=== PATIENT | female | born 2000 | race Caucasian/White ===

== ENCOUNTER 2019-06-23 18:06 | Inpatient (IN) | payer SELFPAY ==
[2019-06-23] VITALS (12 sets, daily range): BP systolic 112–141; BP diastolic 65–79; PULSE 82–103; TEMP 36.5–36.6; BMI 32.0
[2019-06-23 19:53] LABS: Basophils Percent Auto 0.3 % (0.2-1.2); Eosinophils Percent Auto 0.2 % (0-4.4); Hematocrit 30.4 % (37.0-47.0); Hemoglobin 8.9 g/dL (12.0-15.0); Immature Granulocyte Absolute 0.11 K/mm3 (0.00-0.031); Lymphocytes Percent Auto 14.9 % (18.3-44.2); Mean Corpuscular HGB Conc 29.3 g/dl (32-36); Mean Corpuscular Volume 75.1 fl (80-100); Mean Platelet Volume 11.7 fl (7.4-10.4); Monocytes Absolute Auto 0.7 K/mm3 (0.1-0.6); Monocytes Percent Auto 6.4 % (2.6-8.5); Neutrophils Absolute Auto 8.3 K/mm3 (1.3-6.7); Neutrophils Percent Auto 77.2 % (45.5-73.1); Nucleated Red Blood Cells Perc 0.2 % (0.0-0.2); Platelet Count Result 285 k/mm3 (150-375); Red Blood Count 4.05 M/mm3 (4.2-5.4); Red Cell Distribution Width 17.3 % (11.5-14.5); White Blood Count 10.7 K/mm3 (4.5-10.0)
[2019-06-23] MEDS: DINOPROSTONE 10 MG VAG INSERT VAGINAL (19:53)
--- NOTE | 2019-06-23 20:07 | LDADM ---
This patient, Heidi Whitehead, was admitted to Labor/Delivery/Recovery 105 on 06/23/19 at 18:06. Plans for labor, pain management and were discussed with patient. Patient/family oriented to hospital policies and general routines including ID bracelet, bed and alarms, visiting hours, pain management, procedures, bathroom and other care routines, personal items, smoking policy, room service/diet and guest tray routines, security routines, and visiting hours. Patient/Family are encouraged to report perceived risks to care and to ask questions if they do not understand what they are told or what they should do. See OBIX for further documentation.
[2019-06-23 20:11] LABS: Platelet Estimate Adequate (Adequate)
[2019-06-23 20:12] LABS: Anisocytosis 3+ (NORMAL); Hypochromasia 1+ (NORMAL)
--- NOTE | 2019-06-23 20:38 | P.PNAN_ITS ---
Anes - Eval Pre Procedure Procedure: labor epidural Date/Time: 06/23/19 20:38 Surgeon: sandor Pre Op Diagnosis: Induction Patient Data Age: 19 Gender: F Height: 1.6 m Weight: 82 kg Last Vital Signs Pulse 95 06/23/19 19:31 BP 114/73 06/23/19 19:31 Allergies Allergy/AdvReac Type Severity Reaction Status Date / Time No Known Allergies Allergy Unverified 02/02/16 16:50 Laboratory Tests 06/23/19 06/23/19 06/23/19 19:47 19:47 19:47 WBC 10.7 K/mm3 H K/mm3 (4.5-10.0) RBC 4.05 M/mm3 L M/mm3 (4.2-5.4) Hgb 8.9 g/dL L g/dL (12.0-15.0) Hct 30.4 % L % (37.0-47.0) MCV 75.1 fl L fl (80-100) MCH 22.0 pg L pg (26-34) MCHC 29.3 g/dl L g/dl (32-36) RDW 17.3 % H % (11.5-14.5) Plt Count 285 k/mm3 k/mm3 (150-375) MPV 11.7 fl H fl (7.4-10.4) Immature Gran % (Auto) 1.0 % H % (0-0.5) Neut % (Auto) 77.2 % H % (45.5-73.1) Lymph % (Auto) 14.9 % L % (18.3-44.2) [place] % (Auto) 6.4 % % (2.6-8.5) Eos % (Auto) 0.2 % % (0-4.4) Baso % (Auto) 0.3 % % (0.2-1.2) Lymph # (Auto) 1.60 K/mm3 K/mm3 (0.9-3.2) [place] # (Auto) 0.7 K/mm3 H K/mm3 (0.1-0.6) Eos # (Auto) 0.0 K/mm3 K/mm3 (0-0.3) Baso # (Auto) 0.0 K/mm3 K/mm3 (0.0-0.1) Abs Immat Gran (auto) 0.11 K/mm3 H K/mm3 (0.00-0.031) Absolute Neuts (auto) 8.3 K/mm3 H K/mm3 (1.3-6.7) Absolute Nucleated RBC 0.0 K/mm3 K/mm3 (0.0-0.012) Nucleated RBC % 0.2 % % (0.0-0.2) Platelet Estimate Adequate (Adequate) Hypochromasia 1+ (NORMAL) Anisocytosis 3+ (NORMAL) RPR Pending Blood Type Pending Antibody Screen Pending Patient hx anesthesia problems: none Family hx anesthesia problems: none PMFSH Social History Social History Smoking status: Never smoker Second hand tobacco smoke exposure: No Exam Day of Procedure 06/23/19 20:38
[2019-06-23] MEDS: LACTATED RINGERS 1,000 ML 125 ML IV CONT (23:53)
[2019-06-23] MEDS: AMPICILLIN 2 GM/NS 100 ML 2 GM/100 ML BAG IVPB (23:54)
[2019-06-24] VITALS (120 sets, daily range): BP systolic 89–134; BP diastolic 52–111; PULSE 81–116; RESP 16; TEMP 36.5–37; O2SAT 97–100
[2019-06-24] MEDS: AMPICILLIN 1 GM/NS 50 ML 1 GM/50 ML BAG IVPB ×2 (04:31→08:45)
[2019-06-24] MEDS: OXYTOCIN 30 UNITS/NS 500 ML 30 UNITS/500 ML BAG IV CONT (05:34)
[2019-06-24 09:29] LABS: Rapid Plasma Reagin Non-Reactive (NonReactive)
--- NOTE | 2019-06-24 16:13 | WPDANESEPPF ---
Anes - Initial Pre Proc Eval Procedure: Labor Epidural Date/Time: 06/24/19 16:13 Surgeon: Akbar Ureña MD Pre Op Diagnosis: Induction Patient Data Age: 19 Gender: F Height: 1.6 m Weight: 82 kg Last Vital Signs Temp 36.6 C 06/24/19 14:30 Pulse 87 06/24/19 16:01 BP 120/78 06/24/19 16:01 Pulse Ox 100 06/24/19 16:09 Allergies Allergy/AdvReac Type Severity Reaction Status Date / Time No Known Allergies Allergy Unverified 02/02/16 16:50 Laboratory Tests 06/23/19 06/23/19 06/23/19 19:47 19:47 19:47 WBC 10.7 K/mm3 H K/mm3 (4.5-10.0) RBC 4.05 M/mm3 L M/mm3 (4.2-5.4) Hgb 8.9 g/dL L g/dL (12.0-15.0) Hct 30.4 % L % (37.0-47.0) MCV 75.1 fl L fl (80-100) MCH 22.0 pg L pg (26-34) MCHC 29.3 g/dl L g/dl (32-36) RDW 17.3 % H % (11.5-14.5) Plt Count 285 k/mm3 k/mm3 (150-375) MPV 11.7 fl H fl (7.4-10.4) Immature Gran % (Auto) 1.0 % H % (0-0.5) Neut % (Auto) 77.2 % H % (45.5-73.1) Lymph % (Auto) 14.9 % L % (18.3-44.2) [place] % (Auto) 6.4 % % (2.6-8.5) Eos % (Auto) 0.2 % % (0-4.4) Baso % (Auto) 0.3 % % (0.2-1.2) Lymph # (Auto) 1.60 K/mm3 K/mm3 (0.9-3.2) [place] # (Auto) 0.7 K/mm3 H K/mm3 (0.1-0.6) Eos # (Auto) 0.0 K/mm3 K/mm3 (0-0.3) Baso # (Auto) 0.0 K/mm3 K/mm3 (0.0-0.1) Abs Immat Gran (auto) 0.11 K/mm3 H K/mm3 (0.00-0.031) Absolute Neuts (auto) 8.3 K/mm3 H K/mm3 (1.3-6.7) Absolute Nucleated RBC 0.0 K/mm3 K/mm3 (0.0-0.012) Nucleated RBC % 0.2 % % (0.0-0.2) Platelet Estimate Adequate (Adequate) Hypochromasia 1+ (NORMAL) Anisocytosis 3+ (NORMAL) RPR Non-reactive (NonReactive) Blood Type B Positive Antibody Screen Negative Patient hx anesthesia problems: none Family hx anesthesia problems: none PMFSH Family History Family History Other Diabetes mellitus grandparent Grandparent Cancer Social History Social History Smoking status: Never smoker Second hand tobacco smoke exposure: No Substance use: never Gender identity (if verbalized by the patient): Female Spiritual care concerns: No Anes - Eval Final PreProcedure Day of Procedure 06/24/19 16:13 Patient weight: obese Heart: regular rate and rhythm Lungs: normal air movement Airway: Mallampati scale class II Neurological: alert and oriented ASA classification: II Anesthetic plan: proceed Anesthesia type and monitoring: regional epidural Informed Consent: The patient's anesthetic plan and its attendant risks and benefits were discussed with the patient/family/POA. Questions were solicited and answers provided to the satisfaction of the patient/family/POA.
--- NOTE | 2019-06-24 16:38 | WPDHPUPDATE1 ---
History and Physical Update Update Date/Time: 06/24/19 16:38 History and Physical has been reviewed, including an updated exam of the patient. There are NO changes in the patient's condition. Risks, benefits, and alternatives have been discussed and questions answered. Patient agrees to proceed with procedure.
--- NOTE | 2019-06-24 16:38 | WPDOBADMIT ---
Obstetrics - Admit Note Admission Note: record reviewed. No pertinent additions to the history and/or any subsequent changes in the physical findings that are not consistent with the expected course of the were found. Additions to the history and/or subsequent changes in the physical findings follow. None.
--- NOTE | 2019-06-24 16:38 | PM.OBPRVD ---
OB - Delivery Note Procedure Delivery date: 06/24/19 Route of delivery: Laceration description: Perineal - 2nd Degree Delivery repair: chromic Specimen: No Estimated blood loss (mL): 300 Anesthesia type: Epidural Disposition: floor Narrative: Patient prepped and draped in usual manner for this procedure. Maternal expulsive efforts readily delivered vertex over intact perineum. Rest of baby was delivered difficulty cord was clamped and cut and placenta delivered spontaneously. Cervix vagina vulva were inspected with second-degree perineal laceration noted. This was approximated using 2 0 chromic to approximated in a running interlocking manner the vaginal tissue deep tissue in a subcuticular layer with good approximation and hemostasis noted. Uterus was well contracted minimal bleeding. This point seizure was considered terminated with immediate postop condition of mother and baby both excellent. Baby Weeks of gestation at delivery: 39 Infant gender: Female Weight (pounds): 7 Weight (ounces): 11 score one minute: 8 score five minutes: 9
[2019-06-24] MEDS: BENZOCAINE 20% AER SPR (*SP) 56 GM CAN 1 SPRAY TOPICAL (17:10)
[2019-06-24] MEDS: OXYTOCIN 30 UNITS/NS 500 ML 30 UNITS/500 ML BAG 125 UNITS IV CONT (17:10)
[2019-06-24] MEDS: WITCH HAZEL 40 PADS 1 PAD TOPICAL (17:10)
[2019-06-24] MEDS: IBUPROFEN 600 MG TABLET PO (18:20)
[2019-06-25 05:34] LABS: Hemoglobin 8.1 g/dL (12.0-15.0)
--- NOTE | 2019-06-25 07:30 | PC.NURSE ---
PT introductions made and plan of care discussed per post , pain management, bottle feeding, daily care activities. PT verbalized understanding of such care.
[2019-06-25 08:20] VITALS: BP 116/69; PULSE 89; RESP 16; TEMP 37.7; O2SAT 97
--- NOTE | 2019-06-25 10:47 | PM.OBDSVD ---
OB - DS: Summary OB Procedures : None OB Procedures Intrapartum: Spontaneous Vag Delivery OB Procedures: : None Time Spent with Patient Time attestation: Total time spent providing and/or coordinating discharge services: DS: Data Data Completed and Pending Labs on day of discharge: Labs from last 24 hours 06/25/19 04:51 Hgb 8.1 L Hct 27.0 L Discharge Plan Discharge Discharging Clinician: Akbar Ureña Patient Disposition: Home, Self-Care Activity: as tolerated Diet: as tolerated Patient Instructions: Antibiotic Form Stand Alone Forms: General Discharge Information Follow-up/Referrals: Akbar Ureña MD [Physician] - 3 Weeks Discharge Medications: New hydrocodone-acetaminophen 5-325 mg Tablet 1 tab PO Q3H PRN (Reason: Moderate Pain (4-6)) Qty: 12 RF: 0 ibuprofen 600 mg Tablet 600 mg PO Q6H PRN (Reason: Cramping) Qty: 30 RF: 0 Date of admission: 06/23/19 18:06 Primary Care Provider: Yuan Sahu Admitting Provider: Akbar Ureña Attending physician on admission: Akbar Ureña
[2019-06-25] MEDS: IBUPROFEN 600 MG TABLET PO ×2 (10:58→17:59)
[2019-06-25] MEDS: POLYSACCHARIDE IRON COMPLEX 150 MG CAPSULE PO ×2 (10:59→17:59)
[2019-06-25 11:00] VITALS: PULSE 89; RESP 16; O2SAT 97
[2019-06-25] MEDS: DOCUSATE SODIUM 100 MG CAPSULE PO ×2 (11:00→17:59)
[2019-06-25] MEDS: TETANUS,DIPHTHERIA,AC PERTUSSIS ADULT (0.5 ML) BOOSTRIX IM (11:00)
--- NOTE | 2019-06-25 17:46 | WPDANLDPN2 ---
Anes-Prog Note L&D Date/Time: 06/25/19 17:46 Comfortable throughout: labor and delivery Neuraxial method: epidural Epidural/Spinal procedure site: clean & non-tender Neuro status: Neuro function grossly intact. Cardiovascular status: normal Respiratory status: normal Airway patency: baseline Mental status: baseline Post-Op hydration status: normal Vital Signs: Last Vital Signs Temp 37.7 C H 06/25/19 08:20 Pulse 89 06/25/19 08:20 Resp 16 06/25/19 08:20 BP 116/69 06/25/19 08:20 Pulse Ox 97 06/25/19 08:20 Post-procedural complaints: none Patient feedback: Patient satisfied with anesthetic care.
[2019-06-25 19:20] VITALS: BP 106/59; PULSE 90; RESP 16; TEMP 37.1
--- NOTE | 2019-06-26 07:15 | PC.NURSE ---
Pt introductions made and plan of care discussed per post , pain management, bottle feeding, daily care activities and pending discharge to home. PT verbalized understanding of such care.
[2019-06-26 08:00] VITALS: BP 119/78; PULSE 87; RESP 16; TEMP 36.7; O2SAT 100
[2019-06-26] MEDS: DOCUSATE SODIUM 100 MG CAPSULE PO (09:07)
[2019-06-26] MEDS: POLYSACCHARIDE IRON COMPLEX 150 MG CAPSULE PO (09:07)
[2019-06-26] MEDS: IBUPROFEN 600 MG TABLET PO (09:08)
[2019-06-26 09:10] VITALS: PULSE 87; RESP 16; O2SAT 100
--- NOTE | 2019-06-26 12:00 | PC.NURSE ---
Patient viewed the discharge video Mother & Baby Care, The First Two Weeks . Patient was given the opportunity and encouraged to ask questions. Patient verbalized understanding of information shared and has been given the mother/baby guide for home reference.
--- NOTE | 2019-06-26 12:30 | PC.NURSE ---
PT received discharge instructions per protocol and verbalized understanding of such care.
--- NOTE | 2019-06-26 12:45 | PC.NURSE ---
PT discharged to home ambulatory accompanied by fob and infant to waiting car. Follow up appts confirmed
[2019-06-27 10:23] VITALS: BP 131/84; PULSE 83; RESP 20; TEMP 36.9; O2SAT 99
--- NOTE | 2019-07-22 12:54 | P.DS_ITS ---
DS: Admitting Diagnosis Admitting Diagnosis Admitting Diagnosis: Encounter for supervision of normal , unspecified, third trimester OB - DS: Summary OB Procedures : None OB Procedures Intrapartum: Spontaneous Vag Delivery OB Procedures: : None Time Spent with Patient Time attestation: Total time spent providing and/or coordinating discharge services: Discharge Plan Discharge Discharging Clinician: Akbar Ureña Patient Disposition: Home, Self-Care Activity: as tolerated Diet: as tolerated Discharge Instructions: Education: Mom and Baby Guide Given to: Mother Follow-Up: Call your delivering provider's office for an appointment to be seen in: 3 weeks Mom and baby should come to the [facility] for the follow-up appointment. Appointment Date/Time: June 27, 2019 at 10:00 am What to expect at your follow-up visit: Blood Pressure Check Call [phone] if you are unable to keep your appointment time. BREAST CARE: 1. Wear a snug supportive bra. 2. For engorgement discomfort: Bottle Feeding: A. May apply ice packs PERINEAL CARE: 1. Until bleeding stops, use your keyshawn bottle after urinating 2. Change your pad frequently throughout the day 3. You may take sitz baths several times a day (fill your bathtub with warm water and soak for 20 minutes.) Do NOT bathe in the water 4. No tub baths until seen by your physician - You may shower ACTIVITY: 1. Rest as much as possible. 2. Do not exercise or lift anything heavier than your baby (such as laundry or other children.) 3. Avoid stairs or driving as much as possible. 4. Do not put anything into the vagina. No douching, tampons, or sexual ac tivity until seen by physician. NOTIFY PHYSICIAN IF YOU HAVE ANY QUESTIONS OR IF ANY OF THE FOLLOWING SYMPTOMS OCCUR: 1. If your perineum becomes red, swollen, or more painful than what you have experienced in the hospital. 2. If your vaginal bleeding becomes foul smelling. 3. If your vaginal bleeding becomes more heavy than a period or if your bleeding changes from pink to bright red. However, you may pass an occasional walnut- sized clot once or twice for the first week . 4. If you experience a sharp, shooting pain in you calves. 5. If you discover a hard, reddened area on your breast or if you experience flu-like symptoms. 6. Call for temp 100.4 or greater DIET: 1. Eat regular, well-balanced meals. 2. Drink plenty of fluids daily. If , drink to thirst. Patient Instructions: Antibiotic Form Stand Alone Forms: General Discharge Information Follow-up/Referrals: Akbar Ureña MD [Physician] - 3 Weeks Discharge Medications: New hydrocodone-acetaminophen 5-325 mg Tablet 1 tab PO Q3H PRN (Reason: Moderate Pain (4-6)) Qty: 12 RF: 0 ibuprofen 600 mg Tablet 600 mg PO Q6H PRN (Reason: Cramping) Qty: 30 RF: 0 Date of admission: 06/23/19 18:06 Primary Care Provider: Yuan Sahu Admitting Provider: Akbar Ureña Discharge Date/Time: 06/26/19 12:45 Attending physician on admission: Akbar Ureña
== END 2019-06-26 12:45 | disposition home or self-care (01) | DRG 560 ==
LOC: ANHLDR 18:29 → ANHOB2 06-24 18:49
PROVIDERS: Admitting Provider Obstetrics & Gynecology; PCP Pediatrics; Visit Provider Obstetrics & Gynecology
DX: O99.824 Streptococcus B carrier state complicating childbirth (principal); Z37.0 Single live birth; Z3A.39 39 weeks gestation of pregnancy; O99.214 Obesity complicating childbirth; E66.9 Obesity, unspecified; O70.1 Second degree perineal laceration during delivery
CPT/HCPCS: 36415; 85014; 85018; 85025; 86592; 86850; 86900; 86901; 90715; A9270; J0290; J2590; J2795; J3010; J7120

== ENCOUNTER 2020-11-17 14:17 | Emergency (ER) | payer BC, SELFPAY ==
[2020-11-17 14:22] VITALS: BP 120/75; PULSE 74; RESP 14; O2SAT 99
--- NOTE | 2020-11-17 15:23 | ED.UPPEXIN ---
HPI - Extremity Injury (Upper) General Chief Complaint: Extremity Injury, Upper Stated Complaint: right hand swelling Time Seen by Provider: 11/17/20 14:21 History of Present Illness HPI narrative: Patient is a 20-year-old female who presents ER with right hand tingling. Located in fingers 2 through 4. Also feels like it swollen at times. Maintains full range of motion and normal strength. No known trauma. 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 She reports she had returned to work last week and developed the symptoms about 5 days ago. No chest pain or chest pressure. No change in vision or hearing. No other localizing numbness. No localizing weakness. Has not had similar symptoms. Tried ibuprofen 800 mg without relief of symptoms. Patient takes no medications. Related Data Allergies Allergy/AdvReac Type Severity Reaction Status Date / Time No Known Allergies Allergy Unverified 02/02/16 16:50 Review of Systems Review of Systems: All systems reviewed & are unremarkable except as noted in HPI and below Constitutional: Constitutional: Denies chills and Denies fever(s) Musculoskeletal: Musculoskeletal: Denies back pain, Denies arthralgias, Denies joint swelling and Denies muscle cramps Neurologic: Denies headache(s), Denies focal weakness and Reports numbness PMFSH Past Medical History Medical History (Updated 11/17/20 @ 15:29 by Curt Johnson MD) Healthy female adult Surgical History Surgical History (Updated 11/17/20 @ 15:25 by Curt Johnson MD) No history of previous surgery Family History Family History Other Diabetes mellitus grandparent Grandparent Cancer Social History Social History Smoking status: Never smoker Second hand tobacco smoke exposure: No Substance use: never Gender identity (if verbalized by the patient): Female Spiritual care concerns: No Exam Narrative: GENERAL: Well-appearing, well-nourished, and in no acute distress. HEAD: Normocephalic, atraumatic. CHEST: Clear to auscultation. No respiratory distress. HEART: Regular rate and rhythm. Normal peripheral pulses. EXTREMITIES: Normal range of motion. Normal strength in the right hand. No edema. SKIN: Warm, dry, no rash. NEURO: Patient retains sharp touch sensation throughout the right hand with exception over the tip of the third digit. Alert and oriented x3. PSYCH: Normal mood and affect. Course Course Emergency Course: Negative Phalen/Tinel sign. Concern for mild median nerve compression. Will place in wrist splint and start on anti-inflammatories. Recommend follow-up with PCP. Patient verbalized understanding. No traumatic injury or deformity reproducible tenderness so x-rays not obtained. Vital Signs Vital signs: Vital Signs Pulse Rate 74 11/17/20 14:22 Respiratory Rate 14 11/17/20 14:22 Blood Pressure 120/75 11/17/20 14:22 Pulse Oximetry 99 11/17/20 14:22 Pulse Rate 74 11/17/20 14:22 Respiratory Rate 14 11/17/20 14:22 Blood Pressure 120/75 11/17/20 14:22 Pulse Oximetry 99 11/17/20 14:22 Discharge Plan Discharge Clinical Impression: Hand paresthesia Patient Disposition: Home, Self-Care Condition: Stable Instructions: Paresthesia (ED) Additional Instructions: You may have a component of carpal tunnel syndrome. Purchase an [id number] wrist splint from [employer] and wear it overnight and is much as possible during the day. Take the anti-inflammatory medication that was prescribed. Follow-up with your primary care physician for further treatment evaluation. From the ER if you have focal weakness in your arm or hand, you have chest pain or shortness of breath, or you have additional concerns. Prescriptions: New methylprednisolone [Medrol (Reilly)] 4 mg tablets,dose pack See Rx Instructions .ROUTE
== END 2020-11-17 15:54 | disposition home or self-care (01) ==
PROVIDERS: Emergency Provider Emergency Medicine; PCP Obstetrics & Gynecology
DX: R20.2 Paresthesia of skin (principal)
CPT/HCPCS: 99283

== ENCOUNTER 2021-12-02 08:49 | Outpatient (CLI) | payer BC, SELFPAY ==
[2021-12-02 09:56] LABS: Basophils Percent Auto 0.4 % (0.2-1.2); Eosinophils Percent Auto 0.7 % (0-4.4); Hematocrit 39.1 % (37.0-47.0); Immature Granulocyte Absolute 0.02 K/mm3 (0.00-0.031); Immature Granulocyte Percent A 0.4 % (0-0.5); Lymphocytes Absolute Auto 1.55 K/mm3 (0.9-3.2); Lymphocytes Percent Auto 27.4 % (18.3-44.2); Mean Corpuscular HGB Conc 33.2 g/dl (32-36); Mean Corpuscular Hemoglobin 28.7 pg (26-34); Mean Corpuscular Volume 86.3 fl (80-100); Mean Platelet Volume 11.8 fl (7.4-10.4); Monocytes Absolute Auto 0.3 K/mm3 (0.1-0.6); Monocytes Percent Auto 5.1 % (2.6-8.5); Neutrophils Absolute Auto 3.7 K/mm3 (1.3-6.7); Platelet Count Result 209 k/mm3 (150-375); Red Blood Count 4.53 M/mm3 (4.2-5.4); Red Cell Distribution Width 12.9 % (11.5-14.5); White Blood Count 5.7 K/mm3 (4.5-10.0)
[2021-12-02 10:53] LABS: HIV 1/2 Ab P24 Ag Result Negative (Negative)
[2021-12-04 06:27] LABS: Rapid Plasma Reagin Non-Reactive (NonReactive)
[2021-12-04 08:28] LABS: Hepatitis B Surface Antigen Negative (Negative)
== END 2021-12-02 08:50 | disposition home or self-care (01) ==
LOC: ANHLAB 08:50
PROVIDERS: PCP Obstetrics & Gynecology; Visit Provider Obstetrics & Gynecology
DX: N94.89 Other specified conditions associated with female genital organs and menstrual cycle (principal)
CPT/HCPCS: 36415; 85025; 86592; 86644; 86703; 86747; 86787; 86850; 86900; 86901; 87086; 87088; 87340; G0432

== ENCOUNTER 2022-01-18 14:41 | Outpatient (CLI) | payer BC, SELFPAY | END 2022-01-18 14:42 | disposition home or self-care (01) | LOC: ANHLAB 14:42 | PROVIDERS: PCP Obstetrics & Gynecology; Visit Provider Obstetrics & Gynecology | DX: R30.0 Dysuria (principal) | CPT/HCPCS: 87086; 87088 ==

== ENCOUNTER 2022-04-14 07:51 | Outpatient (CLI) | payer BC, SELFPAY ==
[2022-04-14 08:32] LABS: Hemoglobin 10.7 g/dL (12.0-15.0); Mean Corpuscular HGB Conc 32.4 g/dl (32-36); Mean Corpuscular Hemoglobin 27.4 pg (26-34); Mean Corpuscular Volume 84.4 fl (80-100); Mean Platelet Volume 10.7 fl (7.4-10.4); Platelet Count Result 205 k/mm3 (150-375); Red Blood Count 3.91 M/mm3 (4.2-5.4); Red Cell Distribution Width 12.9 % (11.5-14.5); White Blood Count 8.6 K/mm3 (4.5-10.0)
[2022-04-14 09:16] LABS: HIV 1/2 Ab P24 Ag Result Negative (Negative)
[2022-04-14 09:46] LABS: Glucose 1 Hour PP 50gm Dose 131 mg/dL
[2022-04-14 10:43] LABS: Rubella IgG Antibody 21.5 IU/ML
== END 2022-04-14 07:52 | disposition home or self-care (01) ==
LOC: ANHLAB 07:54
PROVIDERS: PCP Obstetrics & Gynecology; Visit Provider Obstetrics & Gynecology
DX: Z34.90 Encounter for supervision of normal pregnancy, unspecified, unspecified trimester (principal); Z3A.00 Weeks of gestation of pregnancy not specified
CPT/HCPCS: 36415; 82947; 85027; 86703; 86762; G0432

== ENCOUNTER 2022-05-22 11:18 | Emergency (ER) | payer BC, SELFPAY ==
[2022-05-22 11:21] VITALS: BP 127/70; PULSE 99; RESP 20; TEMP 36.8; O2SAT 100
--- NOTE | 2022-05-22 12:12 | ED.EXTPRO ---
HPI - Extremity Problem General Chief complaint: Extremity Problem,Nontraumatic Stated complaint: R shoulder pain Time Seen by Provider: 05/22/22 12:05 History of Present Illness HPI Narrative: Pt presents with right shoulder/back pain without known injury for several days. Pt is 35 weeks and has been taking tylenol without relief. Pt works at [employer] and dos some repetitive motions but has not noticed anything in particular setting this off. Related Data Home Medications Medication Instructions Recorded Confirmed acetaminophen 500 mg tablet 500 mg PO Q6H PRN 11/20/21 05/09/22 (Tylenol Extra Strength) vitamins-iron fumarate 65 1 tablet PO DAILY 12/19/21 05/09/22 mg iron-folic acid 1 mg tablet Allergies Allergy/AdvReac Type Severity Reaction Status Date / Time No Known Allergies Allergy Verified 05/22/22 11:26 Review of Systems Review of Systems: All systems reviewed & are unremarkable except as noted in HPI and below PMFSH Past Medical History Medical History Healthy female adult Suppression of menstruation Surgical History Surgical History No history of previous surgery Family History Family History Other Diabetes mellitus grandparent Grandparent Cancer Social History Social History Smoking status: Never smoker Second hand tobacco smoke exposure: No Alcohol intake: never Substance use: never Substance use type: does not use Living arrangements: other Additional living arrangements comments: single Occupation/Education: occupation Additional occupation/education comments: [employer] Gender identity (if verbalized by the patient): Female Sexual Orientation (if Verbalized by the Patient): Straight or Heterosexual Spiritual care concerns: No Exam Const: General: healthy appearing and no acute distress Nutritional Appearance: well nourished Orientation/consciousness: patient oriented x3 Limitations: no limitations Neck: Neck: normal visual inspection Chest: Chest palpation & inspection: normal inspection of the chest Resp: Effort & Inspection: normal respiratory effort Auscultation: clear to auscultation bilaterally Cardio: Rate: regular rate Rhythm: regular rhythm GI: GI Palp: Yes Soft to palpation Auscultation: normal bowel sounds Skin: General skin exam: normal color Wounds: no wounds Neuro: General: patient oriented x3 Cranial nerves: Yes Nystagmus not present Speech: normal speech Extrem: Other: spasm and tenderness in right trapezius and rhomboid otherwise normal Psych: Mental Status: mental status grossly normal Affect: normal affect Attitude: cooperative Course Course Emergency Course: Pt has no injury so discussed with pt and does not want x rays. PT understands that if narcotic is prescribed her baby would likely be exposed and she is aware of potential risks and would like some prescribed for pain. will do sling for comfort. Vital Signs Vital signs: Vital Signs Temperature 98.3 F 05/22/22 11:21 Pulse Rate 99 05/22/22 11:21 Respiratory Rate 20 05/22/22 11:21 Blood Pressure 127/70 05/22/22 11:21 Pulse Oximetry 100 05/22/22 11:21 Oxygen Delivery Room Air 05/22/22 11:21 Temperature 98.3 F 05/22/22 11:21 Pulse Rate 99 05/22/22 11:21 Respiratory Rate 16 05/22/22 12:28 Blood Pressure 127/70 05/22/22 11:21 Pulse Oximetry 100 05/22/22 11:21 Oxygen Delivery Room Air 05/22/22 11:21 Discharge Plan Discharge Clinical Impression: Muscle spasm of shoulder region Patient Disposition: Home, Self-Care Condition: Stable Instructions: Antibiotic Form, Muscle Spasm (ED) Additional Instructions: heat to area Prescriptions: New hydrocodon
[2022-05-22 12:28] VITALS: RESP 16
== END 2022-05-22 12:29 | disposition home or self-care (01) ==
PROVIDERS: Emergency Provider Emergency Medicine; PCP Obstetrics & Gynecology
DX: O99.891 Other specified diseases and conditions complicating pregnancy (principal); M62.838 Other muscle spasm; M25.511 Pain in right shoulder; Z3A.35 35 weeks gestation of pregnancy
CPT/HCPCS: 99283; A4565

== ENCOUNTER 2022-06-14 16:58 | Inpatient (IN) | payer BC, MEDICAID, SELFPAY ==
[2022-06-14] VITALS (110 sets, daily range): BP systolic 79–131; BP diastolic 28–106; PULSE 94–129; TEMP 36.6–36.9; O2SAT 94–100; BMI 31.2
--- NOTE | 2022-06-14 17:42 | LDADM ---
This patient, Heidi Whitehead, was admitted to Labor/Delivery/Recovery 108 on 06/14/22 at 16:58. Plans for labor, pain management and were discussed with patient. Patient/family oriented to hospital policies and general routines including ID bracelet, bed and alarms, visiting hours, pain management, procedures, bathroom and other care routines, personal items, smoking policy, room service/diet and guest tray routines, security routines, and visiting hours. Patient/Family are encouraged to report perceived risks to care and to ask questions if they do not understand what they are told or what they should do. See OBIX for further documentation.
[2022-06-14 17:46] LABS: Basophils Percent Auto 0.3 % (0.2-1.2); Eosinophils Absolute Auto 0.1 K/mm3 (0-0.3); Eosinophils Percent Auto 0.6 % (0-4.4); Hemoglobin 9.5 g/dL (12.0-15.0); Immature Granulocyte Absolute 0.29 K/mm3 (0.00-0.031); Immature Granulocyte Percent A 2.3 % (0-0.5); Lymphocytes Absolute Auto 1.72 K/mm3 (0.9-3.2); Lymphocytes Percent Auto 13.7 % (18.3-44.2); Mean Corpuscular HGB Conc 30.6 g/dl (32-36); Mean Corpuscular Hemoglobin 23.1 pg (26-34); Mean Corpuscular Volume 75.2 fl (80-100); Mean Platelet Volume 10.4 fl (7.4-10.4); Monocytes Absolute Auto 0.8 K/mm3 (0.1-0.6); Monocytes Percent Auto 6.4 % (2.6-8.5); Neutrophils Absolute Auto 9.6 K/mm3 (1.3-6.7); Neutrophils Percent Auto 76.7 % (45.5-73.1); Nucleated Red Blood Cells Perc 0.2 % (0.0-0.2); Platelet Count Result 268 k/mm3 (150-375); Red Blood Count 4.12 M/mm3 (4.2-5.4); Red Cell Distribution Width 15.9 % (11.5-14.5); White Blood Count 12.6 K/mm3 (4.5-10.0)
[2022-06-14] MEDS: DINOPROSTONE 10 MG VAG INSERT VAGINAL (17:50)
[2022-06-14] MEDS: LACTATED RINGERS 1,000 ML 125 ML IV CONT ×3 (19:30→21:53)
--- NOTE | 2022-06-14 20:32 | WPDANESEPP ---
Anes - Eval Pre Procedure Procedure: Labor epidural Date/Time: 06/14/22 20:32 Surgeon: MARY Preop Diagnosis: Abdominal pain with contractions Pre Op Diagnosis: IOL Patient Data Age: 22 Gender: F Height: Weight: Last Vital Signs Temp 98 F 06/14/22 19:30 Pulse 106 H 06/14/22 20:00 BP 118/69 06/14/22 20:00 Pulse Ox 99 06/14/22 20:28 O2 Del Method Room Air 06/14/22 19:01 Allergies Allergy/AdvReac Type Severity Reaction Status Date / Time No Known Allergies Allergy Verified 06/12/22 09:49 Home Medications Medication Instructions Recorded Confirmed Type acetaminophen 500 mg tablet 500 mg PO Q6H PRN 11/20/21 06/12/22 History (Tylenol Extra Strength) vitamins-iron fumarate 65 1 tablet PO DAILY 12/19/21 06/12/22 History mg iron-folic acid 1 mg tablet Laboratory Tests 06/14/22 17:35 WBC 12.6 H K/mm3 (4.5-10.0) RBC 4.12 L M/mm3 (4.2-5.4) Hgb 9.5 L g/dL (12.0-15.0) Hct 31.0 L % (37.0-47.0) MCV 75.2 L fl (80-100) MCH 23.1 L pg (26-34) MCHC 30.6 L g/dl (32-36) RDW 15.9 H % (11.5-14.5) Plt Count 268 k/mm3 (150-375) MPV 10.4 fl (7.4-10.4) Immature Gran % (Auto) 2.3 H % (0-0.5) Neut % (Auto) 76.7 H % (45.5-73.1) Lymph % (Auto) 13.7 L % (18.3-44.2) Harney % (Auto) 6.4 % (2.6-8.5) Eos % (Auto) 0.6 % (0-4.4) Baso % (Auto) 0.3 % (0.2-1.2) Lymph # (Auto) 1.72 K/mm3 (0.9-3.2) Harney # (Auto) 0.8 H K/mm3 (0.1-0.6) Eos # (Auto) 0.1 K/mm3 (0-0.3) Baso # (Auto) 0.0 K/mm3 (0.0-0.1) Abs Immat Gran (auto) 0.29 H K/mm3 (0.00-0.031) Absolute Neuts (auto) 9.6 H K/mm3 (1.3-6.7) Absolute Nucleated RBC 0.0 K/mm3 (0.0-0.012) Nucleated RBC % 0.2 % (0.0-0.2) RPR Pending Blood Type B Positive Antibody Screen Negative : gestational age HCG: positive Patient hx anesthesia problems: none Family hx anesthesia problems: none Results Review: All pre-operative results and documents have been reviewed as part of the pre-operative evaluation. [facility] Past Medical History Medical History Anxiety and depression Healthy female adult Obesity and not yet delivered Suppression of menstruation Surgical History Surgical History No history of previous surgery Family History Family History Other No problems noted. Grandparent Cancer Diabetes mellitus Sibling Autism Social History Social History Smoking status: Never smoker Second hand tobacco smoke exposure: Yes Alcohol intake: never Substance use: never Substance use type: does not use Lack of Transportation: No Lack of Food: Sometimes True Current Housing: I Have Housing Concerned About Future Housing: No Difficulty Paying Gas/Electric Bills: No Difficulty Paying for Meds: No Currently Unemployed: No Education: High School Diploma/GED Difficulty w/ Childcare or Family Care: No Living arrangements: other Additional living arrangements comments: single Occupation/Education: occupation Additional occupation/education comments: [employer] Gender identity (if verbalized by the patient): Female Sexual Orientation (if Verbalized by the Patient): Straight or Heterosexual Spiritual care concerns: No Exam Day of Procedure 06/14/22 20:32 Patient weight: overweight
[2022-06-14] MEDS: PHENYLEPHRINE 1,000 MCG/10 ML SYRINGE 100 MCG IV PUSH ×2 (21:07→21:13)
[2022-06-14] MEDS: ePHEDrine sulfate INJ 50 MG/ML AMPUL IV PUSH ×2 (21:20→21:26)
[2022-06-15] VITALS (21 sets, daily range): BP systolic 72–134; BP diastolic 46–74; PULSE 73–130; RESP 16–20; TEMP 36.3–37.6; O2SAT 95–100
[2022-06-15] MEDS: OXYTOCIN 30 UNITS/NS 500 ML 30 UNITS/500 ML BAG 999 UNITS IV CONT (00:39)
--- NOTE | 2022-06-15 00:45 | WPDHPUPDATE1 ---
History and Physical Update Update Date/Time: 06/15/22 00:45 History and Physical has been reviewed, including an updated exam of the patient. There are NO changes in the patient's condition. Risks, benefits, and alternatives have been discussed and questions answered. Patient agrees to proceed with procedure.
--- NOTE | 2022-06-15 00:45 | PM.OBPRVD ---
OB - Delivery Note Procedure Induction method: Per Cervidil Protocol Delivery monitor: External FHT and External Uterine Route of delivery: Episiotomy description: None Laceration Description: None Specimen: No Quantitative Blood Loss (ml): 300 Anesthesia type: Epidural Disposition: Floor Complications: None Narrative: patient prepped in usual manner for this procedure. Maternal expulsive efforts readily delivered vertex and rest baby without difficulty. Cord was clamped cut passed off the operative field. Placenta delivered spontaneously as well. Uterus well contracted and no significant bleeding. Cervix vagina and vulva were inspected with no lacerations or tears. [place] Baby Date of : 06/15/22 Weeks of gestation at delivery: 39 gender: Female Weight (pounds): 7 Weight (ounces): 10 presentation: vertex Placenta delivery description: Spontaneous Cord Vessel Description: 3 Vessels score one minute: 9 score five minutes: 9 AMG Delivery Billing Delivery Delivery: Delivery Charge
[2022-06-15] MEDS: OXYTOCIN 30 UNITS/NS 500 ML 30 UNITS/500 ML BAG 125 UNITS IV CONT (01:21)
--- NOTE | 2022-06-15 03:40 | OBPPTRN ---
Patient transferred to post room #279 via wheelchair. Support person present. Oriented to unit, room, information board, rooming in, admission packet and security measures. Patient verbalizes understanding.
[2022-06-15] MEDS: IBUPROFEN 600 MG TABLET PO ×2 (05:22→13:00)
[2022-06-15 11:25] LABS: Rapid Plasma Reagin Non-Reactive (NonReactive)
[2022-06-15] MEDS: DOCUSATE SODIUM 100 MG CAPSULE PO (13:00)
[2022-06-15] MEDS: MULTIVIT/MIN/PREN/FOL AC/IRON TABLET 1 TAB PO (13:00)
[2022-06-15] MEDS: ACETAMINOPHEN 325 MG TABLET 650 MG PO (16:30)
[2022-06-16] MEDS: IBUPROFEN 600 MG TABLET PO (03:47)
[2022-06-16] MEDS: ACETAMINOPHEN 325 MG TABLET 650 MG PO (03:49)
[2022-06-16 05:15] LABS: Hematocrit 31.3 % (37.0-47.0); Hemoglobin 9.1 g/dL (12.0-15.0)
--- NOTE | 2022-06-16 07:24 | P.DS_ITS ---
DS: Admitting Diagnosis Discharge Date 06/16/2022 Admitting Diagnosis DS: Discharge Diagnosis Discharge Diagnosis (1) , delivered: Code(s): O80 - Encounter for full-term uncomplicated delivery Status: Acute OB - DS: Summary OB Procedures : None OB Procedures Intrapartum: Spontaneous Vag Delivery OB Procedures: : None Time Spent with Patient Time attestation: Total time spent providing and/or coordinating discharge services: DS: Data Data Completed and Pending Labs on day of discharge: Labs from last 24 hours 06/16/22 06/14/22 03:53 17:35 Hgb 9.1 L Hct 31.3 L RPR Non-reactive Discharge Plan Discharge Discharging Clinician: Akbar Ureña Patient Disposition: Home, Self-Care Activity: as tolerated Diet: as tolerated Patient Instructions: Antibiotic Form Stand Alone Forms: General Discharge Information Follow-up/Referrals: Akbar Ureña MD [Physician] - 3 Weeks Discharge Medications: New ibuprofen 600 mg Tablet 600 mg PO Q6H PRN (Reason: Cramping) Qty: 30 0RF Continued vit-iron fum-folic ac 65 mg iron- 1 mg tablet 1 tablet PO DAILY acetaminophen [Tylenol Extra Strength] 500 mg tablet 500 mg PO Q6H PRN Date of admission: 06/14/22 16:58 Primary Care Provider: PHYSICIAN,SCIENTIFIC SOFTWARE DEVELOPER Admitting Provider: Akbar Ureña Attending physician on admission: Akbar Ureña Condition: Stable
[2022-06-16 07:38] VITALS: BP 110/66; PULSE 81; RESP 14; TEMP 36.8; O2SAT 100
[2022-06-16] MEDS: MULTIVIT/MIN/PREN/FOL AC/IRON TABLET 1 TAB PO (10:08)
[2022-06-16] MEDS: POLYSACCHARIDE IRON COMPLEX 150 MG CAPSULE PO (10:08)
[2022-06-16] MEDS: DOCUSATE SODIUM 100 MG CAPSULE PO (10:08)
--- NOTE | 2022-06-16 11:09 | WPDANLDPN2 ---
Anes-Prog Note L&D Date/Time: 06/16/22 11:09 Comfortable throughout: labor and delivery Neuraxial method: epidural Epidural/Spinal procedure site: clean & non-tender Neuro status: Neuro function grossly intact. Cardiovascular status: normal Respiratory status: normal Airway patency: baseline Mental status: baseline Post-Op hydration status: normal Vital Signs: Last Vital Signs Temp 36.8 C 06/16/22 07:38 Pulse 81 06/16/22 07:38 Resp 14 06/16/22 07:38 BP 110/66 06/16/22 07:38 Pulse Ox 100 06/16/22 07:38 O2 Del Method Room Air 06/15/22 16:30 Pain score (VAS): 3 I/O: Intake & Output 06/15/22 06/16/22 06/16/22 23:59 07:59 15:59 Intake Total 750 Balance 750 Post-procedural complaints: none Patient feedback: Patient satisfied with anesthetic care.
[2022-06-18 10:09] VITALS: BP 112/70; PULSE 89; RESP 18; TEMP 36.9; O2SAT 98
== END 2022-06-16 12:40 | disposition home or self-care (01) | DRG 807 ==
LOC: ANHLDR 17:09 → ANHOB2 06-15 03:52
PROVIDERS: Admitting Provider Obstetrics & Gynecology; Visit Provider Obstetrics & Gynecology
DX: O80 Encounter for full-term uncomplicated delivery (principal); Z37.0 Single live birth; Z3A.39 39 weeks gestation of pregnancy
CPT/HCPCS: 36415; 85014; 85018; 85025; 86592; 86850; 86900; 86901; A9270; J2370; J2590; J2795; J7120

== ENCOUNTER 2023-10-07 09:44 | Outpatient (CLI) | payer BC, SELFPAY ==
[2023-10-07 10:26] LABS: Basophils Percent Auto 0.4 % (0.2-1.2); Eosinophils Percent Auto 0.4 % (0-4.4); Hematocrit 37.3 % (37.0-47.0); Hemoglobin 12.8 g/dL (12.0-15.0); Immature Granulocyte Absolute 0.02 K/mm3 (0.00-0.031); Immature Granulocyte Percent A 0.3 % (0-0.5); Lymphocytes Absolute Auto 1.35 K/mm3 (0.9-3.2); Lymphocytes Percent Auto 19.8 % (18.3-44.2); Mean Corpuscular HGB Conc 34.3 g/dl (32-36); Mean Corpuscular Hemoglobin 30.4 pg (26-34); Mean Corpuscular Volume 88.6 fl (80-100); Mean Platelet Volume 11.5 fl (7.4-10.4); Monocytes Absolute Auto 0.4 K/mm3 (0.1-0.6); Monocytes Percent Auto 5.4 % (2.6-8.5); Neutrophils Percent Auto 73.7 % (45.5-73.1); Platelet Count Result 194 k/mm3 (150-375); Red Blood Count 4.21 M/mm3 (4.2-5.4); Red Cell Distribution Width 12.7 % (11.5-14.5); White Blood Count 6.8 K/mm3 (4.5-10.0)
[2023-10-07 11:52] LABS: Hepatitis B Surface Antigen Negative (Negative); Rubella IgG Antibody 23.8 IU/ML
[2023-10-07 12:38] LABS: HIV 1/2 Ab P24 Ag Result Negative (Negative)
[2023-10-07 13:24] LABS: Rapid Plasma Reagin Non-Reactive (NonReactive)
== END 2023-10-07 09:45 | disposition home or self-care (01) ==
LOC: ANHLAB 09:48
PROVIDERS: Visit Provider Obstetrics & Gynecology
DX: N91.2 Amenorrhea, unspecified (principal)
CPT/HCPCS: 36415; 84702; 85025; 86592; 86644; 86703; 86747; 86762; 86787; 86850; 86900; 86901; 87086; 87340; G0432

== ENCOUNTER 2024-01-21 10:03 | Outpatient (CLI) | payer BC, SELFPAY ==
[2024-01-21 11:39] LABS: Basophils Percent Auto 0.4 % (0.2-1.2); Eosinophils Absolute Auto 0.1 K/mm3 (0-0.3); Eosinophils Percent Auto 0.8 % (0-4.4); Hematocrit 32.2 % (37.0-47.0); Hemoglobin 10.2 g/dL (12.0-15.0); Immature Granulocyte Absolute 0.22 K/mm3 (0.00-0.031); Immature Granulocyte Percent A 2.5 % (0-0.5); Lymphocytes Absolute Auto 1.78 K/mm3 (0.9-3.2); Mean Corpuscular HGB Conc 31.7 g/dl (32-36); Mean Corpuscular Hemoglobin 26.4 pg (26-34); Mean Corpuscular Volume 83.4 fl (80-100); Mean Platelet Volume 10.5 fl (7.4-10.4); Monocytes Absolute Auto 0.6 K/mm3 (0.1-0.6); Monocytes Percent Auto 6.3 % (2.6-8.5); Neutrophils Absolute Auto 6.3 K/mm3 (1.3-6.7); Platelet Count Result 217 k/mm3 (150-375); Red Blood Count 3.86 M/mm3 (4.2-5.4); Red Cell Distribution Width 13.1 % (11.5-14.5); White Blood Count 8.9 K/mm3 (4.5-10.0)
[2024-01-21 11:47] LABS: Glucose 1 Hour PP 50gm Dose 129 mg/dL
[2024-01-21 12:29] LABS: HIV 1/2 Ab P24 Ag Result Negative (Negative)
[2024-01-21 14:07] LABS: Rapid Plasma Reagin Non-Reactive (NonReactive)
== END 2024-01-21 10:04 | disposition home or self-care (01) ==
LOC: ANHLAB 10:03
PROVIDERS: Visit Provider Obstetrics & Gynecology
DX: Z34.90 Encounter for supervision of normal pregnancy, unspecified, unspecified trimester (principal); Z3A.00 Weeks of gestation of pregnancy not specified
CPT/HCPCS: 36415; 82947; 85025; 86592; 86703; G0432

== ENCOUNTER 2024-01-23 21:07 | Emergency (ER) | payer BC, SELFPAY ==
[2024-01-23 21:20] VITALS: BP 99/60; PULSE 94; RESP 16; TEMP 35.9; O2SAT 100
--- NOTE | 2024-01-23 22:25 | PC.NURSE ---
ob cleared pt ok to continue with ed visit
--- NOTE | 2024-01-24 01:36 | PC.NURSE ---
pt called for ed room, no answer
== END 2024-01-24 02:12 | disposition left against medical advice (07) ==
LOC: ANHED 01-24 02:09
DX: R55 Syncope and collapse (principal)
CPT/HCPCS: 99199

== ENCOUNTER 2024-01-23 21:14 | Observation (INO) | payer BC, SELFPAY ==
[2024-01-23 21:30] VITALS: BP 112/71; PULSE 90
[2024-01-23 21:45] VITALS: BP 105/69; PULSE 99
[2024-01-23 22:00] VITALS: BP 108/75; PULSE 97
[2024-01-23 22:14] VITALS: BMI 30.2
--- NOTE | 2024-03-08 20:48 | PM.OBTRLD ---
OB - Triage/Final Diagnosis Visit Information Comments/Additional reasons for admission: I have assessed the risk for this patient, Heidi Whitehead, and determined that she would benefit from observation care. Final Diagnosis (1) Status post fall: Code(s): Z91.81 - History of falling Status: Acute
== END 2024-01-23 22:21 | disposition home or self-care (01) ==
PROVIDERS: Admitting Provider Obstetrics & Gynecology; Visit Provider Obstetrics & Gynecology
DX: O26.893 Other specified pregnancy related conditions, third trimester (principal); Z91.81 History of falling; Z3A.29 29 weeks gestation of pregnancy
CPT/HCPCS: G0378; G0379

== ENCOUNTER 2024-03-25 09:11 | Inpatient (IN) | payer BC, SELFPAY ==
[2024-03-25] VITALS (166 sets, daily range): BP systolic 60–129; BP diastolic 46–105; PULSE 72–114; RESP 16; TEMP 36.3–37.3; O2SAT 95–100; BMI 30.2
--- NOTE | 2024-03-25 09:11 | LDADM ---
This patient, Heidi Whitehead, was admitted to Labor/Delivery/Recovery 106 on 03/25/24 at 09:11. Plans for labor, pain management and were discussed with patient. Patient/family oriented to hospital policies and general routines including ID bracelet, bed and alarms, visiting hours, pain management, procedures, bathroom and other care routines, personal items, smoking policy, room service/diet and guest tray routines, security routines, and visiting hours. Patient/Family are encouraged to report perceived risks to care and to ask questions if they do not understand what they are told or what they should do. See OBIX for further documentation.
--- OUTSIDE RECORDS SUMMARY | 2024-03-25 10:07 | XMS_ITS | Clinical Summary ---
Author Organization [facility] Address [address] [place] [id number] Care Team Providers Care R[employer]her [employer]chant [employer] Name Role Phone None, Provider MD Primary Care Provider Unavaila ble Allergies No known active allergies Medications Medication Sig Dispense Quantity Refills Last Filled Start D ate End Date Status IBUPROFEN OR Active Active Problems No known active problems Family History Medical History Relation Comments Cancer Neg Hx Diabetes Neg Hx Kidney Disease Neg Hx Social History Tobacco Use Types Packs/Day Years Used Date Smoking Tobacco: Never Smokeless Tobacco: Never Tobacco Cessation:Counseling Given: No Comments:Never Smoked Alcohol Use Standard Drinks/Week Comments Yes 0 (1 standard drink = 0.6 oz pur e alcohol) Occasionally AUDIT-C Answer Date Recorded Frequency of Alcohol Consumption Never 10/29/2018 Average Number of Drinks Not on file 019 Frequency of Binge Drinking Not on file 10/19 PHQ-2 Answer Date Recorded PHQ-2 Score - If the patient scores above 3, please move on to questions 3-9 2 07/27/2021 Comments No Sex and Gender Information Value Date Recorded Sex Assigned at Not on file Legal Sex Female 6:35 PM CDT Gender Identity Not on file Sexual Orientation Not on file Last Filed Vital Signs Vital Sign Reading Time Taken Comments Blood Pressure 103/60 10/17/2021 9:49 AM CDT Pulse 78 10/17/2021 9:49 AM CDT Temperature 36.6 ??C (97.8 ??F) 07/06/2021 10:09 AM C DT Respiratory Rate 18 07/06/2021 10:09 AM CDT Oxygen Saturation 100% 07/06/2021 10:09 AM CDT Inhaled Oxygen Concentration - - Weight 66.5 kg (146 lb 9.6 oz) 10/17/2021 9:49 A M CDT Height 157.5 cm (5' 2 ) 08/17/2021 10:02 AM CDT Body Mass Index 26.81 08/17/2021 10:02 AM CDT Plan of Treatment Health Maintenance Due Date Last Done Comments Annual Physical 06/06/2002 HPV Vaccines (1 - 3-dose series) 06/06/2014 Hepatitis C 06/06/2017 Cervical Cancer Screening Pap Smear (Age 21 to 29) Every 3 Years 05/14/2021 05/14/2018 Cervical Cancer Screening 05/14/2021 COVID-19 Vaccine ( season) 2023 Influenza Adult (#1) 2023 02/01/2003 DTaP, Tdap and Td Vaccines (9 - Td or Tdap) 06/24/2029 06/25/2019, 04/23/2019, 06/01/2010, Additional history exists Hepatitis B Vaccines Completed 1999, 1999, 1999 Pneumococcal Vaccine: Pediatrics (0 to 5 Years) and At-Risk Patients (6 to 64 Years) Aged Out 11/18/2000, 03/13/2000, 1999, Additional history exists No longer eligible based on patient's age to complete this topic Meningococcal Vaccine Completed 09/25/2016 Meningococcal B Vaccine Aged Out No l onger eligible based on patient's age to complete this topic RSV Immunizations Under 20 Months Aged Out No longer eligible based on patient's age to complete this topic Insurance Care Teams [employer] Relationship Specialty Start Date End Date None, Provider, PCP - General 10/29/18
--- OUTSIDE RECORDS SUMMARY | 2024-03-25 10:07 | XMS_ITS | Referral Summary ---
Author Organization [facility] Address [address] [place] [address] Care Team Providers Care Meteorologist In Charge Name Role Phone Unavailable Primary Care Provider Unavailabl e Source Comments [facility],non-owned Affiliates and Associated Physician Practices is amultiple site organization consisting of ambulatory clinics and hospital sitesin [place], [place], [place] and [place]. This disclosure is being madepursuant to the Care Everywhere program and may not contain all information available regarding this patient. Last updated 17.[facility] Encounters Date Type Department Care Team Description 12/27/2023 10:58 AM ASSISTANT PROFESSOR OF BUSINESS - 12/27/2023 11:59 PM ASSISTANT PROFESSOR OF BUSINESS Hospital Encounter [facility] Women's Health Maternal & Care [address] [place] [id number] Jacob Link MD Discharge Disposition: Home or Self Care from Last 3 Months Allergies No known active allergies Medications * Be aware that medications may not be up to date on this document. Alwaysverify current medications with the patient. Medication Sig Dispensed Refills Start Date End Date Status TRI-SPRINTEC tablet 04/27/2018 Activ e norgestim-eth estrad triphasic (TRI-SPRINTEC) tablet Take 1 tablet by mouth once daily 3 packet 4 05/14/2018 Active Additional Information Patient not taking.Reported on 12/02/2023 ferrous gluconate 324 (38 Fe) MG tablet Take 1 (one) tablet by mouth once daily Active Vit-Fe Fumarate-FA ( vitamin) 28-0.8 MG tablet Take 1 (one) tablet by mouth once daily Active Active Problems Estimated Date of Delivery Comme nts Yes 04/06/2024 Date entered mata or to episode creation No known active problems Immunizations Name Administration Dates Next Due DTaP VACCINE IM (6wk-6yrs) 10/02/2004,,11/18/2000,1999,,1999 FLU, HISTORIC VACCINE 02/01/2003 HEP B VACCINE, PED/ADOL 1999,1999, HIB VACCINE 11/18/2000,1999,1999 MENINGOCOCCAL MCV4O 09/25/2016 MMR VACCINE 10/02/2004,04/20/2004,11/18/2000 PNEUMOCOCCAL PCV7 CONJ, PEDS 11/18/2000,03/13/19,1999,1999 POLIO IPV 10/02/2004, 5,11/18/2000,1999, TDAP, HISTORIC VACCINE 06/25/2019,04/23/2019, VARICELLA 11/18/2000 Social History Tobacco Use Types Packs/Day Years Used Date Smoking Tobacco: Never Smokeless Tobacco: Never Tobacco Cessation:Counseling Given: Not Answered Alcohol Use Standard Drinks/Week Comments No 0 (1 standard drink = 0.6 oz pur e alcohol) PHQ-2 Answer Date Recorded Patient Health Questionnaire-2 Score 0 12/02/2023 Estimated Date of Delivery Comme nts Yes 04/06/2024 Date entered mata or to episode creation Sex and Gender Information Value Date Recorded Sex Assigned at Not on file Gender Identity Not on file Sexual Orientation Not on file Last Filed Vital Signs Vital Sign Reading Time Taken Comments Blood Pressure 112/68 12/02/2023 11:16 AM CDT Pulse 67 12/02/2023 11:16 AM CDT Temperature 36.6 ??C (97.8 ??F) 12/02/2023 11:16 AM C DT Respiratory Rate 12 12/02/2023 11:16 AM CDT Oxygen Saturation 100% 12/02/2023 11:16 AM CDT Inhaled Oxygen Concentration - - Weight 68 kg (150 lb) 12/02/2023 11:16 AM CDT Height 160 cm (5' 3 ) 12/02/2023 11:16 AM CDT Body Mass Index 26.57 12/02/2023 11:16 AM CDT Plan of Treatment Not on file Procedures Procedure Name Priority Date/Time Associated Diagnosis Comments SONOGRAM - COMPLETE Routine 12/27/2023 1 1:40 AM ASSISTANT PROFESSOR OF BUSINESS Encounter for anatomic survey (HCC) 25 weeks gestation of (HCC) CHLAMYDIA + GC AMPLIFIED PROBE Routine 05/14/2018 9:31 AM CDT Encntr for ob/gyn physician exam (general) (routine) w/o abn findings from Last 3 Months or Most Recently Relevant to Health Maintenance Results * SONOGRAM - COMPLETE (12/27/2023 11:40 AM ASSISTANT PROFESSOR OF BUSINESS) Linked Results Indication ======== Incomplete Heart Views on Outside Scan History ====== OB History ? 3. Para 2 ? [id number] Maternal Assessment Physical Exam ??Height 163 cm, 5 ft 4 in. Initial weight 66 kg, 145 lb. Initial BMI 24.89 kg/m? Method ====== Transabdominal ultrasound ========= [place] . Number of fetuses: 1 Dating ====== ? Date ?Details ? Gest. age ? SAMANTHA Stated SAMANTHA ? 25 w + 4 d ?04/06/2024 U/S ? 12/27/2023 ?based upon AC, BPD, Femur, HC ? 25 w + 4 d ?04/06/2024 Assigned dating based on stated SAMANTHA, selected on 12/27/2023 ? 25 w + 4 d ?04/06/2024 General Evaluation Cardiac activity present. FHR 135 bpm. Presentation: cephalic Placenta: Placental site: anterior Umbilical cord: Cord vessels: 3 vessel cord. Insertion site: normal insertion Amniotic fluid: Amount of AF: appears normal. MVP 6.3 cm Biometry BPD ?63.1 ?mm ?25w 4d ??40% ? Hadlock HC ? 232.8 ?? mm ?25w 2d ??19% ? Hadlock Cerebellum tr ?28.5 ?mm ?44% ? [place] AC ? 207.3 ?? mm ?25w 2d ??32% ? Hadlock Femur ?48.6 ?mm ?26w 2d ??60% ? Hadlock Humerus ?46.4 ?mm ?27w 3d ??91% ? [place] HC / AC ?1.12 Weight Calculation: EFW ?840 ? g ? 44% ? Hadlock EFW (lb,oz) ?1 lb 14 oz EFW by ? Hadlock ([id number]) Head / Face / Neck Biometry: Cephalic index ? 0.76 ?27% ? Nicolaides appropriate Growth Overview Exam date ?GA ?BPD (mm) ?HC (mm) AC (mm) FL (mm) HL (mm) EFW (g) 12/27/2023 ?25w 4d ??63.1 ?40% ? 232.8 ?? 19% ? 207.3 ?? 32% ? 48.6 ?60% ? 46.4 ?91% ? 840 ? 44% Anatomy The following structures appear normal: Head / Neck ?Cranium. Lateral ventricles. Choroid plexus. Midline falx. Cavum septi pellucidi. Cerebellum. Cisterna magna. Face ?Lips. Profile. Nose. Heart / Thorax 4-chamber view. RVOT view. LVOT view. 3-vessel view. 8-tkwsxj-lwqvwjw view. Situs. Aortic arch view. Bicaval view. Ductal arch view. ? Interventricular septum. Great vessels. ? Right lung. Left lung. Diaphragm. Abdomen ?Cord insertion. Stomach. Kidneys. Bladder. Spine ??Cervical spine. Thoracic spine. Lumbar spine. Sacral spine. Extremities / Skeleton Arms. Hands. Legs. Feet. sex: male. Impression ========= Single, live, intrauterine at 25w 4d size appears appropriate Amniotic fluid volume: appears normal No major malformations were seen within the limitations of ultrasound Comment ======== Baby?s heart appeared structurally intact, with an intact septum, valve and outflow tract configuration. Smaller clinically significant lesions, such as atrial septa defects adjacent to the foramen ovale, may not become detectable until baby arrives. Follow-up ======== Follow up as clinically indicated Coding ====== Procedures ? 16688: US Preg Uterus >14 weeks [facility] PACS Anatomical Region Laterality Modality Other 12/27/2023 11:4 0 AM ASSISTANT PROFESSOR OF BUSINESS Akbar Ureña MD [facility] ORDERABLES * CHLAMYDIA + GC AMPLIFIED PROBE (05/14/2018 9:31 AM CDT) Chlamydia NA Urine Negative Negative [facility] ACCOUNT BILL GC NA Urine Negative Negative [facility] ACCOUNT BILL Microbiology ENTIRE ENDOCERVIX / Unknown 05/14/2018 9:31 AM CDT 05/14/2018 Narrative Resulting Agency Comment [facility] [address] [place] [address] ??Marc Summers [id number] Aylin Odom MD LAB - MICROBIOLOGY ORDERABLES [facility] ACCOUNT BILL [address] [place] [address] from Last 3 Months or Most Recently Relevant to Health Maintenance
--- OUTSIDE RECORDS SUMMARY | 2024-03-25 10:07 | XMS_ITS | Clinical Summary ---
Author Organization [facility] [employer] [employer] [facility] Address [address] [place] [address] Care Team Providers Care University Librarian Name Role Phone Unavailable Primary Care Provider Unavailabl e Source Comments [facility],non-owned Affiliates and Associated Physician Practices is amultiple site organization consisting of ambulatory clinics and hospital sitesin [place], [place], [place] and [place]. This disclosure is being madepursuant to the Care Everywhere program and may not contain all information available regarding this patient. Last updated 17.[facility] [employer] [facility] Allergies No known active allergies Medications * [...] to episode creation No known active problems Encounters Date Type Department Care Team Description 12/27/2023 10:58 AM ETL DATA ARCHITECT - 12/27/2023 11:59 PM ETL DATA ARCHITECT Hospital Encounter [facility] Women's Health Maternal & Care [address] [place] [id number] Jacob Link MD Discharge Disposition: Home or Self Care from Last 3 Months Immunizations Name Administration Dates Next Due DTaP VACCINE IM (6wk-6yrs) 10/02/2004,,11/18/2000,1999,,1999 FLU, HISTORIC VACCINE 02/01/2003 HEP B VACCINE, PED/ADOL 1999,1999, HIB VACCINE 11/18/2000,1999,1999 MENINGOCOCCAL MCV4O 09/25/2016 MMR VACCINE 10/02/2004,04/20/2004,11/18/2000 PNEUMOCOCCAL PCV7 CONJ, PEDS 11/18/2000,03/13/19,1999,1999 POLIO IPV 10/02/2004, 5,11/18/2000,1999, TDAP, HISTORIC VACCINE 06/25/2019,04/23/2019, VARICELLA 11/18/2000 Family History Medical History Relation Name Comments Cancer - Other Maternal Grandfather Relation Name Status Comments Father Alive Maternal Grandfather Alive Maternal Grandmother Alive Mother Alive Paternal Grandfather Paternal Grandmother Alive Social History Tobacco Use Types Packs/Day Years [...] 12/02/2023 11:16 AM CDT Plan of Treatment Health Maintenance Due Date Last Done Comments PAP SMEAR 1999 HIV SCREENING 06/06/2014 HPV VACCINE (1 - 3-dose series) 06/06/2014 HEPATITIS C SCREENING 06/02/2017 CHLAMYDIA/GONORRHEA SCREENING 05/15/2019 05/14/2018 COVID-19 VACCINE ( season) 2023 INFLUENZA VACCINE (#1) 2023 02/01/2003 OB-ONE HOUR GLUCOSE 12/30/2023 OB-TDAP CURRENT 01/06/20242019, 04/23/2019, 06/01/2010 OB-RHOGAM INJECTION 01/13/2024 DEPRESSION SCREENING 02/19/2024 12/02/2023 OB-GROUP B STREP SCREEN 03/02/2024 DTAP/TDAP/TD VACCINES (9 - Td or Tdap) 06/24/2029 06/25/2019, 04/23/2019, 06/01/2010, Additional history exists ZOSTER VACCINE (1 of 2) 06/06/2049 HEPATITIS B VACCINE Completed 1999, 1999, 1999 HIB VACCINE Completed 11/18/2000, 09/19, 1999 PNEUMOCOCCAL VACCINE Completed 11/18/2000, 03/13/2000, 1999, Additional history exists MENINGOCOCCAL VACCINE Completed 09/25/2016 MENINGOCOCCAL (Group B) VACCINE Aged Out No longer eligible based on patient's age to complete this topic Respiratory Syncytial Virus (RSV) Vaccine Pt: or over 60 yrs (No Doses Required) Completed Procedures Procedure Name Priority Date/Time Associated Diagnosis Comments SONOGRAM - COMPLETE Routine 12/27/2023 1 1:40 AM ETL DATA ARCHITECT Encounter for anatomic survey (HCC) 25 weeks gestation of (HCC) CHLAMYDIA + GC AMPLIFIED PROBE Routine 05/14/2018 9:31 AM CDT Encntr for valve mechanic exam (general) (routine) w/o abn findings from Last 3 Months or Most Recently Relevant to Health Maintenance Results * SONOGRAM - COMPLETE (12/27/2023 11:40 AM ETL DATA ARCHITECT) Linked Results Indication ======== Incomplete Heart Views on Outside Scan History ====== OB History ? 3. Para 2 ? [id number] Maternal Assessment Physical Exam ??Height 163 cm, [...] lb 14 oz EFW by ? Hadlock ([id number]) Head / Face / Neck Biometry: Cephalic [...] view. RVOT view. LVOT view. 3-vessel view. 3-mzkddp-gviuwej view. Situs. Aortic arch view. Bicaval view. [...] as clinically indicated Coding ====== Procedures ? [id number]: Preg Uterus >14 weeks [place] PACS Anatomical Region Laterality Modality Other 12/27/2023 11:4 0 AM ETL DATA ARCHITECT Akbar Ureña MD [facility] ORDERABLES * CHLAMYDIA + GC AMPLIFIED PROBE (05/14/2018 9:31 AM CDT) Chlamydia NA Urine Negative Negative [facility] ACCOUNT BILL GC NA Urine Negative Negative [facility] ACCOUNT BILL Microbiology ENTIRE ENDOCERVIX / Unknown 05/14/2018 9:31 AM CDT 05/14/2018 Narrative Resulting Agency Comment [facility] [address] [facility] ??Marc Summers [phone] Aylin Odom MD LAB - MICROBIOLOGY ORDERABLES [facility] ACCOUNT BILL [address] [place] [address] from Last 3 Months or Most Recently Relevant to Health Maintenance
--- OUTSIDE RECORDS SUMMARY | 2024-03-25 10:07 | XMS_ITS | Clinical Summary ---
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 Heidi Whitehead is not up to date on screening tests. She is in need of hepatitis C, Cholesterol screening, and Cervical cancer screening. She is not up to date on needed preventative vaccinations; She is in need of HPV. We discussed healthy lifestyle habits, educational material has been given. Medications reviewed, changes documented as per the medical record and discussed with patient along with risks vs benefits. Return in 1 year Immunizations Name Administration Dates Next Due DTaP 10/02/2004, 5,11/18/2000,1999 ,1999,1999 Hep B, Adolescent or Pediatric 1999,1999,1999 HiB 11/18/2000,1999,1999 IPV 10/02/2004, 5,11/18/2000,1999 ,1999 Influenza, Split 02/01/2003 MMR 10/02/2004,04/20/2004,11/18/2000 Meningococcal Conjugate (Menveo) 09/25/2016 Pneumococcal Conjugate 7-Valent 11/18/2000,03/13,1999,1999 Tdap 06/25/2019,04/23/2019,06/01/2010 Varicella 11/18/2000 Family History Medical History Relation Name Comments Autism Brother 1 No Known Problems Brother 2 Asthma Father No Known Problems Mother No Known Problems Sister 1 No Known Problems Sister 2 No Known Problems Sister 3 No Known Problems Sister 4 No Known Problems Sister 5 Relation Name Status Comments Brother 1 Alive Brother 2 Alive Father Alive Mother Alive Sister 1 Alive Sister 2 Alive Sister 3 Alive Sister 4 Alive Sister 5 Alive Social History Tobacco Use Types Packs/Day Years Used Date Smoking Tobacco: Never Smokeless Tobacco: Never Tobacco Cessation:Counseling Given: Not Answered Alcohol Use Standard Drinks/Week Comments No 0 (1 standard drink = 0.6 oz pur e alcohol) AUDIT-C Answer Date Recorded Q1: How often do you have a drink containing alc ohol? Monthly or less 08/06/2023 Q2: How many drinks containi ng alcohol do you have on a typical day when you are drinking? 3 or 4 08/06/2023 Q3: How often do you have si x or more drinks on one occasion? 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 Not on file Not on file Not on file Obstetrics History Last Filed Vital Signs Vital Sign Reading Time Taken Comments Blood Pressure 90/60 08/06/2023 12:58 PM CDT Pulse 72 08/06/2023 12:58 PM CDT Temperature 37 ??C (98.6 ??F) 08/06/2023 12:58 PM CDT Respiratory Rate 14 08/06/2023 12:58 PM CDT Oxygen Saturation 98% 08/06/2023 12:58 PM CDT Inhaled Oxygen Concentration - - Weight 67.6 kg (149 lb) 08/06/2023 12:58 PM CDT Height 162.6 cm (5' 4 ) 08/06/2023 12:58 PM CDT Body Mass Index 25.58 08/06/2023 12:58 PM CDT Plan of Treatment Health Maintenance Due Date Last Done Comments Cervical Cancer Screening 1999 Chlamydia and Gonorrhea (GC/ CT) Screening 1999 Varicella Vaccines (2 of 2 - 2-dose childhood series) 2003 11/18/2000 HPV Vaccines (1 - 3-dose series) 06/06/2014 Influenza Vaccine (#1) 2023 02/01/2003 Depression Screening 08/05/2024 08/06/2023, 08/06/19 24 Regular Well Visit/Exam 18-64 08/05/2024 08/06/2023 DTaP/Tdap/Td Vaccine (9 - Td or Tdap) 06/24/2029 06/25/2019, 04/23/2019, 06/01/2010, Additional history exists Pneumococcal vaccine <65 Completed 001, 03/13/2000, 1999, Additional history exists Hepatitis C Screening Completed 08/06/2023 Procedures Procedure Name Priority Date/Time Associated Diagnosis Comments HEPATITIS C ANTIBODY Routine 08/06/2023 1:31 PM CDT Need for hepatitis C screening test from Last 3 Months or Most Recently Relevant to Health Maintenance Results * Hepatitis C antibody Blood (08/06/2023 1:31 PM CDT) Hep C Ab Nonreactive Nonreactive Comment: Interpretive Data Nonreactive: Antibodies to HCV not detected. Does NOT exclude the possibility of recent exposure to HCV. Equivocal: Equivocal for HCV antibodies. Supplemental molecular testing will be automatically performed to determine infection status in accordance with current CDC screening recommendations. ?? Reactive: Positive for HCV antibodies. ??This may represent current or past HCV infection. Supplemental molecular testing will be automatically performed to determine ??current infection status in accordance with current CDC screening recommendations. Interpretive data was last revised on 2019. Blood 08/06/2023 1:31 PM CDT 08/06/2023 8:14 PM CDT us Tyree Martínez MD LAB MICROBIOLOGY - GENERAL ORDERABLES Final Result [facility] [id number] Department [place] [address] from Last 3 Months or Most Recently Relevant to Health Maintenance Insurance [employer] Care Teams Picker Tender Helper Relationship Specialty Start Date End Date Tyree Martínez MD [address] [place] [address] PCP - General Family Medicine 08/06/23 Akbar Ureña MD [address] [place] [address] Referring Physician Obstetrics and Gynecology 08/06/23
--- OUTSIDE RECORDS SUMMARY | 2024-03-25 10:07 | XMS_ITS | Data Portability ---
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 Lab bacterial vaginosis + vaginitis panel, vaginal 2019 020 DAISY [facility], [address], [address] [address], [place], [address], 0 08:18:02 urinalysi s, dipstick 2019 020 [email or web address] 1 In-Office Order, Internal Use Only DO Not Attach Compendium DO Not Attach Compendium, Do Not Delete/merge, [id number] 0 11:31:13 urinalysi s, dipstick 2019 020 DAISY In-Office Order, Internal Use Only DO Not Attach Compendium DO Not Attach Compendium, Do Not Delete/merge, [id number] 0 11:03:51 culture, vaginal/r ectal, streptoco ccus group B - Please fax results to [facility] at [phone] 2019 020 [facility], [address] [place] [address], [address], [place], [address], 0 10:36:03 HSV (1+2) DNA, qual, PCR, unspecifi ed specimen - Please fax results to [facility] at [phone] 020 [facility], [address] [place] [address], [address], [place], [address], 0 10:36:02 bacterial vaginosis + vaginitis panel, vaginal - Please fax results to [facility] at [phone] 2019 020 [facility], [address] [place] [address], [address], [place], [address], 0 10:36:02 vdrl/RPR, serum 2019 020 tellisonrn [facility], [address], [place], [address], 0 13:15:40 HIV (1+2) Ab screen, serum 2019 020 tellisonrbrett [facility], [address], [place], [address], 0 13:15:40 HBsAg (hepatiti s B surface Ag), serum 2019 020 tellisonrn [facility], [address], [place], [address], 0 10:42:02 urinalysi s, dipstick 2019 020 [email or web address] 1 In-Office Order, Internal Use Only DO Not Attach Compendium DO Not Attach Compendium, Do Not Delete/merge, [id number] 0 11:13:21 CBC 2019 [place] [facility], [address], [address], [address], 0 09:08:33 urinalysi s, dipstick 2019 [email or web address] In-Office Order, Internal Use Only DO Not Attach Compendium DO Not Attach Compendium, Do Not Delete/merge, [id number] 0 12:34:47 Referral None recorded. Procedures None recorded. Surgeries None recorded. Imaging US, obstetric , 3rd trimester 2019 [facility] ([facility]), [address] [place], [address], 0 10:41:06 Medication Orders terconazo le 0.4 % vaginal cream 2019 020 [id number], [address], [place], [id number], 0 12:16:19 nystatin 100,000 unit/gram topical cream 2019 020 [id number], [address] [facility], [place], [place], [id number], 0 12:16:19 fluconazo le 150 mg tablet 2019 020 [id number], [address] [facility], [place], [place], [id number], 0 11:36:17 cyanocoba sy (vit B-12) 1,000 mcg/mL injection solution 2019 020 [email or web address] Not available 0 15:01:07 Junel Fe 24 1 mg-20 mcg (24)/75 mg (4) tablet 2019 020 [id number], [address] [facility], [place], [place], [id number], 0 12:35:59 Patient TargetsNo targets recorded. Patient Instructions Encounter Date Encounter Id Patient Instructions Last Modified By Organization Details Last Modified Time 05/07/2019 [id number] vaginal yeast infection: care instructions Not available 05/07/2019 15:59:15 Reason for Referral None Reported. Results Created Date Observation Date Name Description Value Unit Range Abnormal Flag Note LastModifiedBy Organization Detail LastModifiedTime 06/11/19 20 06/11/2019 urina lysis , dipst ick Leukocytes Trace Not Available In-Offi ce Order Internal Use Only DO Not Attach Compendium DO Not Attach Compendium, Do Not Delete/merge, [id number] 06/11/2019 12:22:49 06/11/19 20 06/11/2019 urina lysis , dipst ick Nitrite negati ve Not Available In-Office Order Internal Use Only DO Not Attach Compendium DO Not Attach Compendium, Do Not Delete/merge, [id number] 06/11/2019 12:22:49 06/11/19 20 06/11/2019 urina lysis , dipst ick Urobilinogen .2 Not Available In-Of fice Order Internal Use Only DO Not Attach Compendium DO Not Attach Compendium, Do Not Delete/merge, [id number] 06/11/2019 12:22:49 06/11/19 20 06/11/2019 urina lysis , dipst ick Protein 100 Not Available In-Office Order Internal Use Only DO Not Attach Compendium DO Not Attach Compendium, Do Not Delete/merge, [id number] 06/11/2019 12:22:49 06/11/19 20 06/11/2019 urina lysis , dipst ick pH 6.0 Not Available In-Office Order Internal Use Only DO Not Attach Compendium DO Not Attach Compendium, Do Not Delete/merge, [id number] 06/11/2019 12:22:49 06/11/19 20 06/11/2019 urina lysis , dipst ick Blood Negati ve Not Available In-Office Order Internal Use Only DO Not Attach Compendium DO Not Attach Compendium, Do Not Delete/merge, 06/11/2019 12:22:49 06/11/19 20 06/11/2019 urina lysis , dipst ick Specific [place] 1.030 Not Available In-Off ice Order Internal Use Only DO Not Attach Compendium DO Not Attach Compendium, Do Not Delete/merge, 06/11/2019 12:22:49 06/11/19 20 06/11/2019 urina lysis , dipst ick Ketone Trace Not Available In-Office Order Internal Use Only DO Not Attach Compendium DO Not Attach Compendium, Do Not Delete/merge, 06/11/2019 12:22:49 06/11/19 20 06/11/2019 urina lysis , dipst ick Bilirubin Small Not Available In-Offic e Order Internal Use Only DO Not Attach Compendium DO Not Attach Compendium, Do Not Delete/merge, 06/11/2019 12:22:49 06/11/19 20 06/11/2019 urina lysis , dipst ick Glucose Negati ve Not Available In-Office Order Internal Use Only DO Not Attach Compendium DO Not Attach Compendium, Do Not Delete/merge, 06/11/2019 12:22:49 04/09/19 20 04/09/2019 urina lysis , dipst ick Leukocytes Large Not Available In-Offi ce Order Internal Use Only DO Not Attach Compendium DO Not Attach Compendium, Do Not Delete/merge, 04/09/2019 10:59:00 04/09/19 20 04/09/2019 urina lysis , dipst ick Nitrite negati ve Not Available In-Office Order Internal Use Only DO Not Attach Compendium DO Not Attach Compendium, Do Not Delete/merge, 04/09/2019 10:59:00 04/09/19 20 04/09/2019 urina lysis , dipst ick Urobilinogen .2 Not Available In-Of fice Order Internal Use Only DO Not Attach Compendium DO Not Attach Compendium, Do Not Delete/merge, 04/09/2019 10:59:00 04/09/19 20 04/09/2019 urina lysis , dipst ick Protein Negati ve Not Available In-Office Order Internal Use Only DO Not Attach Compendium DO Not Attach Compendium, Do Not Delete/merge, 04/09/2019 10:59:00 04/09/1904/09/2019 urina lysis , dipst ick pH 6.0 Not Available In-Office Order Internal Use Only DO Not Attach Compendium DO Not Attach Compendium, Do Not Delete/merge, 04/09/2019 10:59:00 04/09/1904/09/2019 urina lysis , dipst ick Blood Hemoly zed: Trace Not Available In-Office Order Internal Use Only DO Not Attach Compendium DO Not Attach Compendium, Do Not Delete/merge, 04/09/2019 10:59:00 04/09/1904/09/2019 urina lysis , dipst ick Specific [place] 1.025 Not Available In-Off ice Order Internal Use Only DO Not Attach Compendium DO Not Attach Compendium, Do Not Delete/merge, 04/09/2019 10:59:00 04/09/19 20 04/09/2019 urina lysis , dipst ick Ketone Negati ve Not Available In-Office Order Internal Use Only DO Not Attach Compendium DO Not Attach Compendium, Do Not Delete/merge, 04/09/2019 10:59:00 04/09/19 20 04/09/2019 urina lysis , dipst ick Bilirubin Negati ve Not Available In-Office Order Internal Use Only DO Not Attach Compendium DO Not Attach Compendium, Do Not Delete/merge, 04/09/2019 10:59:00 04/09/19 20 04/09/2019 urina lysis , dipst ick Glucose Negati ve Not Available In-Office Order Internal Use Only DO Not Attach Compendium DO Not Attach Compendium, Do Not Delete/merge, 04/09/2019 10:59:00 04/23/1904/23/2019 urina lysis , dipst ick Leukocytes Small Not Available In-Offi ce Order Internal Use Only DO Not Attach Compendium DO Not Attach Compendium, Do Not Delete/merge, 04/23/2019 10:16:37 04/23/1904/23/2019 urina lysis , dipst ick Nitrite negati ve Not Available In-Office Order Internal Use Only DO Not Attach Compendium DO Not Attach Compendium, Do Not Delete/merge, 04/23/2019 10:16:37 04/23/1904/23/2019 urina lysis , dipst ick Urobilinogen .2 Not Available In-Of fice Order Internal Use Only DO Not Attach Compendium DO Not Attach Compendium, Do Not Delete/merge, 04/23/2019 10:16:37 04/23/1904/23/2019 urina lysis , dipst ick Protein Trace Not Available In-Office Order Internal Use Only DO Not Attach Compendium DO Not Attach Compendium, Do Not Delete/merge, 04/23/2019 10:16:37 04/23/1904/23/2019 urina lysis , dipst ick pH 6.0 Not Available In-Office Order Internal Use Only DO Not Attach Compendium DO Not Attach Compendium, Do Not Delete/merge, 04/23/2019 10:16:37 04/23/19 20 04/23/2019 urina lysis , dipst ick Blood Negati ve Not Available In-Office Order Internal Use Only DO Not Attach Compendium DO Not Attach Compendium, Do Not Delete/merge, 04/23/2019 10:16:37 04/23/19 20 04/23/2019 urina lysis , dipst ick [place] 1.030 Not Available In-Off ice Order Internal Use Only DO Not Attach Compendium DO Not Attach Compendium, Do Not Delete/merge, 04/23/2019 10:16:37 04/23/19 20 04/23/2019 urina lysis , dipst ick Ketone Negati ve Not Available In-Office Order Internal Use Only DO Not Attach Compendium DO Not Attach Compendium, Do Not Delete/merge, 04/23/2019 10:16:37 04/23/1904/23/2019 urina lysis , dipst ick Bilirubin Negati ve Not Available In-Office Order Internal Use Only DO Not Attach Compendium DO Not Attach Compendium, Do Not Delete/merge, 04/23/2019 10:16:37 04/23/1904/23/2019 urina lysis , dipst ick Glucose Negati ve Not Available In-Office Order Internal Use Only DO Not Attach Compendium DO Not Attach Compendium, Do Not Delete/merge, [id number] 04/23/2019 10:16:37 04/28/1904/30/2019 bacte rial vagin osis + vagin itis panel , vagin al atopobium vaginae LOW - 0 score Not Available [facility] ([facility]) [address] [place], [address], 05/01/2019 08:18:02 04/28/1904/30/2019 bacte rial vagin osis + vagin itis panel , vagin al bvab 2 LOW - 0 score Not Available [facility] ([facility]) [address] [place], [address], 05/01/2019 08:18:02 04/28/1904/30/2019 bacte rial vagin osis + vagin itis panel , vagin al megasphaera 1 LOW - 0 score Calcu late total score by saturnino dillard the 3 indiv idual bacte rial vagin osis (BV) marke r score s toget her. Total score is inter prete d as follo ws: Total score 0-1: Indic ates the absen ce of BV. Total score 2: Indet ermin ate for BV. Addit ional clini madhuri data shoul d be evalu ated to estab kane a diagn osis. Total score 3-6: Indic ates the prese nce of BV. This test was devel oped and its perfo rmanc e srini cteri stics deter mined by [facility]. It has not been clear ed or appro ava by the Food and Drug Admin istra tion. The FDA has deter mined that such clear ance or appro sofi is not neces ginny. Not Available [facility] ([facility]) [address] [facility], [place], [address], 05/01/2019 08:18:02 04/28/1905/01/2019 bacte rial vagin osis + vagin itis panel , vagin al lala albicans, NA POSITI VE negati ve abnormal Not Available [facility] ([facility]) [address] [place], [address], 05/01/2019 08:18:02 04/28/1905/01/2019 bacte rial vagin osis + vagin itis panel , vagin al lala glabrata, NA NEGATI VE negati ve Not Available [facility] ([facility]) [address] [place], [address], 05/01/2019 08:18:02 04/28/1905/01/2019 bacte rial vagin osis + vagin itis panel , vagin al trich vag by NA NEGATI VE negati ve Not Available [facility] ([facility]) [address] [facility], [place], [address], 05/01/2019 08:18:02 04/28/1905/01/2019 bacte rial vagin osis + vagin itis panel , vagin al chlamydia trachomatis, NA NEGATI VE negati ve Not Available [facility] ([facility]) [address] [facility], [place], [address], 05/01/2019 08:18:02 04/28/1905/01/2019 bacte rial vagin osis + vagin itis panel , vagin al neisseria gonorrhoeae, NA NEGATI VE negati ve Not Available [facility] ([facility]) [address] [place], [address], 05/01/2019 08:18:02 05/07/1905/07/2019 urina lysis , dipst ick Leukocytes Small Not Available In-Offi ce Order Internal Use Only DO Not Attach Compendium DO Not Attach Compendium, Do Not Delete/merge, [id number] 05/07/2019 10:58:24 05/07/1905/07/2019 urina lysis , dipst ick Nitrite negati ve Not Available In-Office Order Internal Use Only DO Not Attach Compendium DO Not Attach Compendium, Do Not Delete/merge, 05/07/2019 10:58:24 05/07/19 20 05/07/2019 urina lysis , dipst ick Urobilinogen .2 Not Available In-Of fice Order Internal Use Only DO Not Attach Compendium DO Not Attach Compendium, Do Not Delete/merge, 05/07/2019 10:58:24 05/07/19 20 05/07/2019 urina lysis , dipst ick Protein Trace Not Available In-Office Order Internal Use Only DO Not Attach Compendium DO Not Attach Compendium, Do Not Delete/merge, 05/07/2019 10:58:24 05/07/19 20 05/07/2019 urina lysis , dipst ick pH 6.0 Not Available In-Office Order Internal Use Only DO Not Attach Compendium DO Not Attach Compendium, Do Not Delete/merge, 05/07/2019 10:58:24 05/07/19 20 05/07/2019 urina lysis , dipst ick Blood Non-He molyze d: Trace Not Available In-Office Order Internal Use Only DO Not Attach Compendium DO Not Attach Compendium, Do Not Delete/merge, 05/07/2019 10:58:24 05/07/19 20 05/07/2019 urina lysis , dipst ick Specific [place] 1.030 Not Available In-Off ice Order Internal Use Only DO Not Attach Compendium DO Not Attach Compendium, Do Not Delete/merge, 05/07/2019 10:58:24 05/07/19 20 05/07/2019 urina lysis , dipst ick Ketone Negati ve Not Available In-Office Order Internal Use Only DO Not Attach Compendium DO Not Attach Compendium, Do Not Delete/merge, 05/07/2019 10:58:24 05/07/19 20 05/07/2019 urina lysis , dipst ick Bilirubin Negati ve Not Available In-Office Order Internal Use Only DO Not Attach Compendium DO Not Attach Compendium, Do Not Delete/merge, 05/07/2019 10:58:24 05/07/19 20 05/07/2019 urina lysis , dipst ick Glucose Negati ve Not Available In-Office Order Internal Use Only DO Not Attach Compendium DO Not Attach Compendium, Do Not Delete/merge, 05/07/2019 10:58:24 05/21/19 20 05/21/2019 urina lysis , dipst ick Leukocytes Trace Not Available In-Offi ce Order Internal Use Only DO Not Attach Compendium DO Not Attach Compendium, Do Not Delete/merge, 05/21/2019 10:41:25 05/21/19 20 05/21/2019 urina lysis , dipst ick Nitrite negati ve Not Available In-Office Order Internal Use Only DO Not Attach Compendium DO Not Attach Compendium, Do Not Delete/merge, 05/21/2019 10:41:25 05/21/19 20 05/21/2019 urina lysis , dipst ick Urobilinogen .2 Not Available In-Of fice Order Internal Use Only DO Not Attach Compendium DO Not Attach Compendium, Do Not Delete/merge, 05/21/2019 10:41:25 05/21/19 20 05/21/2019 urina lysis , dipst ick Protein Negati ve Not Available In-Office Order Internal Use Only DO Not Attach Compendium DO Not Attach Compendium, Do Not Delete/merge, 05/21/2019 10:41:25 05/21/19 20 05/21/2019 urina lysis , dipst ick pH 6.0 Not Available In-Office Order Internal Use Only DO Not Attach Compendium DO Not Attach Compendium, Do Not Delete/merge, 05/21/2019 10:41:25 05/21/19 20 05/21/2019 urina lysis , dipst ick Blood Negati ve Not Available In-Office Order Internal Use Only DO Not Attach Compendium DO Not Attach Compendium, Do Not Delete/merge, 05/21/2019 10:41:25 05/21/19 20 05/21/2019 urina lysis , dipst ick [place] 1.025 Not Available In-Off ice Order Internal Use Only DO Not Attach Compendium DO Not Attach Compendium, Do Not Delete/merge, [id number] 05/21/2019 10:41:25 05/21/19 20 05/21/2019 urina lysis , dipst ick Ketone Negati ve Not Available In-Office Order Internal Use Only DO Not Attach Compendium DO Not Attach Compendium, Do Not Delete/merge, [id number] 05/21/2019 10:41:25 05/21/19 20 05/21/2019 urina lysis , dipst ick Bilirubin Negati ve Not Available In-Office Order Internal Use Only DO Not Attach Compendium DO Not Attach Compendium, Do Not Delete/merge, 05/21/2019 10:41:25 05/21/19 20 05/21/2019 urina lysis , dipst ick Glucose Negati ve Not Available In-Office Order Internal Use Only DO Not Attach Compendium DO Not Attach Compendium, Do Not Delete/merge, [id number] 05/21/2019 10:41:25 06/04/19 20 06/05/2019 CBC WBC 9.7 x10e3 /uL 3.4-10 .8 Not Available [facility] ([facility]) [address] [place], [address], 06/05/2019 09:08:33 06/04/19 20 06/05/2019 CBC RBC 4.08 x10e6 /uL 3.77-5 .28 Not Available [facility] ([facility]) [address] [place], [address], 06/05/2019 09:08:33 06/04/1906/05/2019 CBC hemoglobin 9.9 g/dL 11.1-1 5.9 below low normal Not Available [facility] ([facility]) [address] [place], [address], 06/05/2019 09:08:33 06/04/1906/05/2019 CBC hematocrit 30.4 % 34.0-4 6.6 below low normal Not Available [facility] ([facility]) [address] [place], [address], 06/05/2019 09:08:33 06/04/19 20 06/05/2019 CBC MCV 75 fL 79-97 below low normal Not Available [facility] ([facility]) [address] [place], [address], 06/05/2019 09:08:33 06/04/1906/05/2019 CBC MCH 24.3 pg 26.6-3 3.0 below low normal Not Available [facility] ([facility]) [address] [place], [address], 06/05/2019 09:08:33 06/04/1906/05/2019 CBC MCHC 32.6 g/dL 31.5-3 5.7 Not Available [facility] ([facility]) [address] [place], [address], 06/05/2019 09:08:33 06/04/19 20 06/05/2019 CBC RDW 15.7 % 11.7-1 5.4 above high normal Not Available [facility] ([facility]) [address] [place], [address], 06/05/2019 09:08:33 06/04/1906/05/2019 CBC platelets 259 x10e3 /uL 150-45 0 Not Available [facility] ([facility]) [address] [place], [address], 06/05/2019 09:08:33 06/04/1906/05/2019 CBC NRBC PIPE STRIPPER Not Available [facility] ([facility]) [address] [place], [address], 06/05/2019 09:08:33 06/04/1906/05/2019 HIV 1+2 AB + HIV 1 p24 Ag, quali tativ e immun oassa y, serum HIV screen 4TH generation wrfx Non Reacti ve non reacti ve Not Available [facility] ([facility]) [address] [place], [address], 06/05/2019 09:08:34 06/04/19 20 06/05/2019 RPR (rapi d plasm a reagi n), serum RPR Non Reacti ve non reacti ve Not Available [facility] ([facility]) [address] [place], [address], 06/05/2019 09:08:35 06/04/19 20 06/06/2019 bacte rial vagin osis + vagin itis panel , vagin al chlamydia trachomatis, NA Negati ve negati ve Not Available [facility] ([facility]) [address] [place], [address], 06/09/2019 10:36:01 06/04/19 20 06/06/2019 bacte rial vagin osis + vagin itis panel , vagin al neisseria gonorrhoeae, NA Negati ve negati ve Not Available [facility] ([facility]) [address] [place], [address], 06/09/2019 10:36:01 06/04/19 20 2019 bacte rial vagin osis + vagin itis panel , vagin al trich vag by NA Negati ve negati ve Not Available [facility] ([facility]) [address] [place], [address], 06/09/2019 10:36:01 06/04/19 20 06/09/2019 bacte rial vagin osis + vagin itis panel , vagin al atopobium vaginae Low - 0 score Not Available [facility] ([facility]) [address] [place], [address], 06/09/2019 10:36:01 06/04/19 20 06/09/2019 bacte rial vagin osis + vagin itis panel , vagin al bvab 2 Low - 0 score Not Available [facility] ([facility]) [address] [place], [address], 06/09/2019 10:36:01 06/04/19 20 06/09/2019 bacte rial vagin osis + vagin itis panel , vagin al megasphaera 1 Low - 0 score Calcu late total score by saturnino dillard the 3 indiv idual bacte rial vagin osis (BV) marke r score s toget her. Total score is inter prete d as follo ws: Total score 0-1: Indic ates the absen ce of BV. Total score 2: Indet ermin ate for BV. Addit ional clini madhuri data shoul d be evalu ated to estab kane a diagn osis. Total score 3-6: Indic ates the prese nce of BV. This test was devel oped and its perfo rmanc e srini cteri stics deter mined by [facility]. It has not been clear ed or appro ava by the Food and Drug Admin istra tion. The FDA has deter mined that such clear ance or appro sofi is not neces ginny. Not Available [facility] ([facility]) [address] [facility], [place], [address], 06/09/2019 10:36:01 06/04/19 20 06/09/2019 bacte rial vagin osis + vagin itis panel , vagin al lala albicans, NA Negati ve negati ve Not Available [facility] ([facility]) [address] [facility], [place], [address], 06/09/2019 10:36:01 06/04/19 20 06/09/2019 bacte rial vagin osis + vagin itis panel , vagin al lala glabrata, NA Negati ve negati ve Not Available [facility] ([facility]) [address] [place], [address], 06/09/2019 10:36:01 06/04/19 20 06/08/2019 HSV (1+2) DNA, qual, PCR, unspe cifie d speci men hsv 1 NA Negati ve negati ve Not Available [facility] ([facility]) [address] [facility], [place], [address], 06/09/2019 10:36:02 06/04/19 20 06/08/2019 HSV (1+2) DNA, qual, PCR, unspe cifie d speci men hsv 2 NA Negati ve negati ve Not Available [facility] ([facility]) [address] [facility], [place], [address], 06/09/2019 10:36:02 06/04/19 20 06/06/2019 cultu re, vagin al/re ctal, strep tococ cus group B strep gp B NA Positi ve negati ve abnormal Cente rs for Disea se Contr ol and Preve ntion (CDC) and Ameri can Congr ess of Obste trici ans and Gynec ologi sts (ACOG ) guide lines for preve ntion of perin atal group B strep tococ madhuri (GBS) disea se speci fy co-co llect ion of a vagin al and recta l swab speci men to maxim ize sensi tivit y of GBS detec tion. Per the CDC and ACOG, swabb ing both the lower vagin a and rectu m subst antia lly incre ases the yield of detec tion marquise red with sampl ing the vagin a alone . Penic illin G, ampic illin , or cefaz hua are indic ated for intra partu m proph ylaxi s of perin atal GBS colon izati on. Refle x susce ptibi lity testi ng shoul d be perfo rmed prior to use of clind amyci n only on GBS isola sara from penic illin -alexandra rgic women who are consi dered a high risk for anaph ylaxi s. Treat ment with vanco mycin witho ut addit ional testi ng is warra nted if resis tance to clind amyci n is noted . Not Available [facility] ([facility]) [address] [facility], [place], [address], 06/09/2019 10:36:03 06/04/19 20 06/04/2019 urina lysis , dipst ick Leukocytes Negati ve Not Available In-Office Order Internal Use Only DO Not Attach Compendium DO Not Attach Compendium, Do Not Delete/merge, 06/04/2019 10:55:04 06/04/19 20 06/04/2019 urina lysis , dipst ick Nitrite negati ve Not Available In-Office Order Internal Use Only DO Not Attach Compendium DO Not Attach Compendium, Do Not Delete/merge, 06/04/2019 10:55:04 06/04/19 20 06/04/2019 urina lysis , dipst ick Urobilinogen .2 Not Available In-Of fice Order Internal Use Only DO Not Attach Compendium DO Not Attach Compendium, Do Not Delete/merge, 06/04/2019 10:55:04 06/04/19 20 06/04/2019 urina lysis , dipst ick Protein 30 Not Available In-Office Order Internal Use Only DO Not Attach Compendium DO Not Attach Compendium, Do Not Delete/merge, 06/04/2019 10:55:04 06/04/19 20 06/04/2019 urina lysis , dipst ick pH 5.5 Not Available In-Office Order Internal Use Only DO Not Attach Compendium DO Not Attach Compendium, Do Not Delete/merge, 06/04/2019 10:55:04 06/04/19 20 06/04/2019 urina lysis , dipst ick Blood Negati ve Not Available In-Office Order Internal Use Only DO Not Attach Compendium DO Not Attach Compendium, Do Not Delete/merge, 06/04/2019 10:55:04 06/04/19 20 06/04/2019 urina lysis , dipst ick Specific [place] 1.030 Not Available In-Off ice Order Internal Use Only DO Not Attach Compendium DO Not Attach Compendium, Do Not Delete/merge, 06/04/2019 10:55:04 06/04/19 20 06/04/2019 urina lysis , dipst ick Ketone Negati ve Not Available In-Office Order Internal Use Only DO Not Attach Compendium DO Not Attach Compendium, Do Not Delete/merge, [id number] 06/04/2019 10:55:04 06/04/19 20 06/04/2019 urina lysis , dipst ick Bilirubin Negati ve Not Available In-Office Order Internal Use Only DO Not Attach Compendium DO Not Attach Compendium, Do Not Delete/merge, [id number] 06/04/2019 10:55:04 06/04/19 20 06/04/2019 urina lysis , dipst ick Glucose Negati ve Not Available In-Office Order Internal Use Only DO Not Attach Compendium DO Not Attach Compendium, Do Not Delete/merge, [id number] 06/04/2019 10:55:04 04/06/19 20 04/06/2019 imagi ng/di agnos tic resul t No observ ation record ed. [address] (Imaging) [address] [place], [address], 04/09/2019 13:52:07 05/29/19 20 05/29/2019 imagi ng/di agnos tic resul t No observ ation record ed. [address] (Imaging) [address] [place], [address], 06/04/2019 11:13:57 Result Notes None recorded. 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 Procedures Surgical History None recorded. Imaging Results Imaging Date Name Status LastModified by Organiz ation Details LastModified Time 04/06/2019 imaging/diag nostic result completed [address] (Imaging) [address] [place], [address], 04/09/2019 13:52:07 05/29/2019 imaging/diag nostic result completed [address] (Imaging) [address] [place], [address], 06/04/2019 11:13:57 Procedure Notes None recorded. Medical Equipment None Reported. Allergies No known drug allergies Medications Name Sig Start Date Stop Date Status Note LastModified by Organization Details LastModified Time terconazo le 0.4 % vaginal cream Insert 1 applicat orful every day by vaginal route at bedtime for 7 days. active Not Available Not Available No t Available fluconazo le 150 mg tablet Take 1 tablet by oral route. active Not Available Not Available No t Available terconazo le 0.8 % vaginal cream Insert 1 applicat orful every day by vaginal route at bedtime for 3 days. 04/22 completed Not Available Not Available Not Available Gaurang Low Dose Aspirin 81 mg tablet,de layed release Take 1 tablet every day by oral route. 2018 active Not Available Not Available Not Avai lable penicilli n V potassium 500 mg tablet Take 1 tablet every 12 hours by oral route for 7 days. 04/22 completed Not Available Not Available Not Available Vitamin tablet Take 1 tablet every day by oral route as directed for 90 days. 2018 active Not Available Not Available Not Avai lable cephalexi n 500 mg capsule 01/01 completed Not Available Not Available Not Available cyanocoba sy (vit B-12) 1,000 mcg/mL injection solution Inject 1 mL every month by subcutan eous route. 2019 active Not Available Not Available Not Avai lable ferrous sulfate 325 mg (65 mg iron) tablet Take 1 tablet every day by oral route. active Not Available Not Available No t Available nystatin 100,000 unit/gram topical cream APPLY TO THE AFFECTED AREA(S) BY TOPICAL ROUTE 2 TIMES PER DAY active Not Available Not Available No t Available progester one micronize d 200 mg capsule Take 1 capsule twice a day by oral route. active Not Available Not Available No t Available folic acid 1 mg tablet Take 4 tablets every day by oral route. active Not Available Not Available No t Available metoclopr amide 10 mg tablet active Not Available Not Available No t Available Tri-Sprin chloé (28) 0.18 mg(7)/0.2 15 mg(7)/0.2 5 mg(7)-35 mcg tablet Take 1 tablet every day by oral route. 01/29 completed 01/01/19 Pt stopped BC 08/2018 DG RMA Not Available Not Available Not Available Calcium with Vitamin D3 600 mg (carbonat e)-10 mcg (400 unit) capsule Take 1 capsule twice a day by oral route. 2018 active Not Available Not Available Not Avai lable Junel Fe 24 1 mg-20 mcg (24)/75 mg (4) tablet Take 1 tablet every day by oral route. 2019 active Not Available Not Available Not Avai lable Vitals Date Recorded Body height Body mass index (BMI) Body mass index (BMI) Percentile per age and sex Heart rate Body temperature Oxygen saturation Oxygen saturation in Arterial blood by Pulse oximetry Systolic blood pressure Diastolic blood pressure Provider Name and Address Organization Details Last Updated DateTime 0 160.02 cm 29.8 kg/m2 93 % 103 /min 98.1 [degF] 98 % 98 % 100 mm[Hg] 72 mm[Hg] Ely Merino MA [facility] 0 11:30:47 Date Recorded Body weight Provider Name an d Address Organization Details Last Updated DateTime 04/28/2019 55531.939445 g ANMOL MCINTOSH Attn: Accounting[address] [place], [address], [facility] 06/09/2019 11:33:21 Date Recorded Body height Body mass index (BMI) Percentile per age and sex Body mass index (BMI) Heart rate Body temperature Oxygen saturation Oxygen saturation in Arterial blood by Pulse oximetry Systolic blood pressure Diastolic blood pressure Provider Name and Address Organization Details Last Updated DateTime 0 160.02 cm 94 % 30.7 kg/m2 95 /min 98.2 [degF] 97 % 97 % 110 mm[Hg] 66 mm[Hg] Ely Merino MA [facility] 0 11:09:05 Date Recorded Body weight Provider Name an d Address Organization Details Last Updated DateTime 05/07/2019 56851.7674 g ANMOL MCINTOSH Attn: Accounting,[address] [place], [address], [facility] 05/07/2019 14:33:02 Date Recorded Body height Body mass index (BMI) Body mass index (BMI) Percentile per age and sex Body temperature Oxygen saturation Oxygen saturation in Arterial blood by Pulse oximetry Systolic blood pressure Diastolic blood pressure Provider Name and Address Organization Details Last Updated DateTime 0 160.02 cm 31.9 kg/m2 95 % 97.9 [degF] 98 % 98 % 96 mm[Hg] 60 mm[Hg] Ely Merino MA [facility] 0 10:51:42 Date Recorded Body weight Heart rate Provider Name and Address Organization Details Last Updated DateTime 05/21/2019 46013.06267 g 116 /min ANMOL MCINTOSH Attn: Accounting,[address] [place], [address], [facility] 05/21/2019 11:07:20 Date Recorded Body height Body mass index (BMI) Percentile per age and sex Body mass index (BMI) Heart rate Body temperature Oxygen saturation Oxygen saturation in Arterial blood by Pulse oximetry Systolic blood pressure Diastolic blood pressure Provider Name and Address Organization Details Last Updated DateTime 0 160.02 cm 96 % 32.8 kg/m2 98 /min 98.2 [degF] 98 % 98 % 118 mm[Hg] 74 mm[Hg] Ely Merino MA [facility] 0 11:09:06 Date Recorded Body weight Provider Name an d Address Organization Details Last Updated DateTime 06/04/2019 12698.003596 g ANMOL MCINTOSH Attn: Accounting,[address] [facility], [place], [address], [facility] 06/04/2019 11:22:37 Date Recorded Body height Body mass index (BMI) Body mass index (BMI) Percentile per age and sex Body weight Provider Name and Address Organization Details Last Updated DateTime 06/11/2019 160.02 cm 33.5 kg/m2 96 % 93128.957 93 g Laurie Tinajero MA [facility] 06/11/2019 12:19:18 Date Recorded Systolic blood pressure Diastolic blood pressure Provider Name and Address Organization Details Last Updated DateTime 06/11/2019 120 mm[Hg] 76 mm[Hg] Amaury Askew [facility] 12:24:20 Social History Question Answer Notes LastModified by Organizat ion Details LastModified Time Tobacco Smoking Status Never Smoker Aundrea Johnson MA null, [facility] 08/13/2017 11:05:50 Do You Have An Advance Directive? No Information not available 08/13/2017 What Is Your Level Of Alcohol Consumption? None Information not available 08/13/2017 If You Are , What Was Your Level Of Alcohol Consumption Prior To ? None Information not available 06/11/2019 Is Anesthesia Consult Planned? No Information not available 06/11/2019 Plan No Information no t available 06/11/2019 Is Blood Transfusion Acceptable In An Emergency? Yes Information not available 08/13/2017 What Is Your Level Of Caffeine Consumption? Occasional Tea Information not available 01/01/2019 Live With Cats/exposure To Cat Litter Yes Pt States Partner Changes Liter Box, Cb-rma Information not available 06/11/2019 How Much Tobacco Do You Chew? None Information not available 08/13/2017 Are You Currently Employed? Yes Information not available 01/01/2019 What Type Of Diet Are You Following? REGULAR Information not available 08/13/2017 Which Illicit Or Recreational Drugs Have You Used? None Information not available 08/13/2017 Do You Or Have You Ever Used E-cigarettes Or Vape? Never Used Electronic Cigarettes Information not available 01/01/2019 Education 12 Information no t available 01/01/2019 What Is Your Occupation? Unemployed Information not available 06/11/2019 Have There Been Any Changes To Your Family Or Social Situation? No Information not available 06/11/2019 Frequent Air Travel No Information not available 06/11/2019 Illicit Drugs Pre- None Information not available 06/11/2019 Live Alone Or With Others? With Others Information not available 08/13/2017 Marital Status Single Informatio n not available 06/11/2019 What Was The Date Of Your Most Recent Tobacco Screening? 06/11/2019 Information not available 06/11/2019 How Many Children Do You Have? 0 Information not available 08/13/2017 Are There Any Occupational Health Risks Where You Work? None Information not available 06/11/2019 Performs Monthly Self-breast Exam? No Information not available 08/13/2017 Do You Use Protection During Sex? Always Information not available 08/13/2017 What Is Your Relationship Status? Single Information not available 08/13/2017 Seat Belts Used Routinely Yes Information not available 08/13/2017 Are You Sexually Active? Yes Information not available 08/13/2017 Do You Have Smoke And Carbon Monoxide Detectors In Your Home? Yes Information not available 06/11/2019 At What Age Did You Start Smoking Tobacco? 0 Information not available 01/01/2019 Are You Passively Exposed To Smoke? No Information not available 06/11/2019 Do You Or Have You Ever Used Smokeless Tobacco? Never Used Smokeless Tobacco Information not available 01/01/2019 How Much Tobacco Do You Smoke? No Information not available 01/01/2019 Smoking Pre- No Information not available 06/11/2019 General Stress Level Medium Information not available 01/01/2019 Do You Use Sunscreen Routinely? No Information not available 08/13/2017 Supplements Prenatals Information not available 06/11/2019 On What Date Was Tobacco Cessation Counseling Provided? 06/11/2019 Information not available 06/11/2019 How Many Years Have You Smoked Tobacco? 0 Information not available 06/11/2019 Sex: Unknown Functional Status Question Answer Note LastModified by Organizat ion Details LastModified Time What is your exercise level? Occasional Information not available 01/01/2019 Mental Status None recorded. Family History Relationship Description Onset Age of this Age Resolved Age Notes LastModified by Organization Details LastModified Time Father Asthma Not available 11:05:09 Medical History Condition Response Other N High Blood Pressure N Breast Cancer N Thyroid Problems N Kidney or Bladder Problems N Lung Disease N Depression N Blood Clots N GI Problems N Acne N Breast Problem N Eating Disorder N Anemia N Anesthesia Complications N Headaches/Migraines N Ovarian Cancer N Diabetes N Anxiety Disorder N Muscle, Joint, or Bone Problems N Blood Transfusions N Seizures/Epilepsy N Polyps N Infertility N Acid Reflux (GERD) N Cancer N Abuse/Domestic Violence N Asthma N Endometriosis N High Cholesterol N Hepatitis N Liver Disease N Heart Disease N Pre-Eclampsia N Osteoporosis N Gynecological History Statement/Question Response Flow Moderate Date of LMP 09/25/2018 On BCP's at Conception? N STIs/STDs N HPV Vaccine Duration of Flow (days) 5 Age at Menarche 12 Current Control Method Age at First Child 18 Frequency of Cycle (Q days) 28 Sexually Active? Y Menses Monthly N Date of Last Pap Smear Sexual Problems? N LMP Approximate Desired Control Method BCPs Obstetrics History GPAL:G 1 P 0 0 0 0 Type Value Multiple Births 0 Full Term 0 Induced 0 Spontaneous 0 Premature 0 Living 0 Ectopics 0 Total 1 Immunizations Vaccine Type Date Status Note Provider Nam e and Address Organization Details Recorded Time Tdap 04/23/2019 completed ANMOL MCINTOSH Attn: Accounting[address] , [place], [address], [facility] 04/23/2019 11:09:11 Past Encounters Encounter ID Performer Location Encounter Start Date Encounter Closed Date Diagnosis/Indication Diagnosis SNOMED-CT Code Diagnosis ICD10 Code Diagnosis Note [id number] LAILA Rao (CANDY COUNTER CLERK) [address] [place] [id number] 08/13/2017 10:08:46 08/13/2017 11:24:22 Family planning surveillance 178759157 Z30.09 Counseled patient about different forms of control methods including Condoms, OCPS, Depo Provera, Nuva ring, patch, Nexplanon, IUD, Implanon -- etc. Counseled LARC is the best option for her. Patient desires to have OCP's. Counseled thoroughly about benefits and risks, mechanism of action, efficacy, effect of missed pills, administra tion, contraindi cations, return to fertility after discontinu ation, side effects, effect on menstrual changes, weight changes, head ache, mood changes, effect on depression , anxiety and bipolar, venous thromboemb olism. Patient verbalized understand ing. Urine test negative today. Counseled about importance of using condoms with OCP's to prevent STD's. Gynecologi c examination 55678112 Z01.419 Age appropriat e counseling done. Venereal d isease screening 362145172 Z11.3 Patient refused blood work. [id number] ANMOL MCINTOSH (CANDY COUNTER CLERK) [address] [place] [id number] 0 01/01/2019 11:07:37 01/02/2019 10:51:08 Routine care 677588281 Z34.90 Venereal d isease screening 394174724 Z11.3 screening 2437 65507 Z36.85 Morning sickness 7479712 6 O21.9 Pt given prescripti on for metoclopra mide by a different provider. Continue as needed. [id number] LAILA Casey (CANDY COUNTER CLERK) [address] [place] [address] [id number] 0 01/23/2019 15:46:09 01/26/2019 11:40:49 [id number] ANMOL MCINTOSH (CANDY COUNTER CLERK) [address] [place] [address] [id number] 0 01/29/2019 10:48:44 01/30/2019 11:05:17 Routine care 639634406 Z34.90 screening 2437 98188 Z36.1 Heterozygo us methylenetetrahydrofo late reductase mutation 1905366986 94135 E72.12 [id number] ANMOL MCINTOSH (CANDY COUNTER CLERK) [address] [place] [id number] 0 02/26/2019 10:25:41 02/26/2019 11:33:58 Routine care 117256766 Z34.90 Heterozygo us methylenetetrahydrofo late reductase mutation 1003280603 73665 E72.12 B12 injections 02/26 [id number] ANMOL MCINTOSH (CANDY COUNTER CLERK) [address] [place] [address] [id number] 03/26/2019 10:48:57 03/26/2019 11:54:22 Routine care 373065965 Z34.82 screening 2437 12077 Z36.9 Heterozygo us methylenetetrahydrofo late reductase mutation 4364154089 47707 E72.12 B12 injections 02/26, 2/6 [id number] ANMOL MCINTOSH (CANDY COUNTER CLERK) [address] [place] [address] [id number] 0 04/09/2019 10:31:51 04/09/2019 11:22:44 Routine care 140049740 Z34.82 Heterozygo us methylenetetrahydrofo late reductase mutation 1413104403 26523 E72.12 B12 injections /, 2/6 Anemia of 2734 2004 O99.019 On iron supplement . Candidiasis of vagina 72 439750 B37.3 [id number] ANMOL MCINTOSH (CANDY COUNTER CLERK) [address] [place] [address] [id number] 0 04/23/2019 10:04:17 04/27/2019 14:31:13 Routine care 710478645 Z34.82 Heterozygo us methylenetetrahydrofo late reductase mutation 1885139419 50148 E72.12 B12 injections 1/9, 2/6, 3/5 Anemia of 2734 2003 O99.019 On iron supplement . [id number] ANMOL MCINTOSH (CANDY COUNTER CLERK) [address] [place] [address] [id number] 0 04/28/2019 10:42:43 04/30/2019 16:18:57 Candidal vulvovaginitis 03997693 B37.3 Instructed to take medication as prescribed . Swab obtained for culture. Assess symptomati c resolution at [facility] f/u on 05/07/19. [id number] ANMOL MCINTOSH (CANDY COUNTER CLERK) [address] [place] [address] [id number] 0 05/07/2019 10:35:34 05/07/2019 11:39:58 Routine care 006253539 Z34.82 Heterozygo us methylenetetrahydrofo late reductase mutation 7798869951 13647 E72.12 B12 injections 1/, 2/6, 3/5 Anemia of 2734 2003 O99.019 On iron supplement . Recurrent candidiasis of vagina 365120127 B37.3 Completed second round of terconazol e tx 04/28/2019. Mild symptoms remain. Start fluconazol e as prescribed . [id number] ANMOL MCINTOSH (CANDY COUNTER CLERK) [address] [place] [id number] 0 05/21/2019 10:00:31 05/26/2019 09:22:01 Routine care 884906002 Z34.82 Routine care. B12 injection given today. Repeat US to evaluate growth. Heterozygo us methylenetetrahydrofo late reductase mutation 3525539345 33328 E72.12 B12 injections 1/9, 2/6, 3/5, 4/2 Anemia of 2734 2003 O99.019 On iron supplement . [id number] ANMOL MCINTOSH (CANDY COUNTER CLERK) [address] [place] [address] [id number] 0 06/04/2019 10:30:17 06/12/2019 09:09:17 Routine care 507399881 Z34.82 Routine care at 36w5d. Denies contractio ns, LOF. Cervix posterior and closed, mild effacement . GBS screening completed. US 05/28 with EFW 65.4%, ALONZO 14.10cm. Discussed delivery with patient and she wants to deliver at [place]. Will start seeing Dr. Askew weekly for cervix checks. screening 2437 94532 Z36.85 Venereal d isease screening 124919418 Z11.3 Heterozygo us methylenetetrahydrofo late reductase mutation 7905586899 11434 E72.12 B12 injections 02/26, 03/26, 04/22, 4/2 Anemia of 2734 2003 O99.019 On iron supplement . Recheck CBC today. [id number] Amaury Munoz (CANDY COUNTER CLERK) [address] [place] [address] [id number] 0 06/11/2019 12:01:03 06/12/2019 15:32:27 Routine care 073461948 Z34.[address] reptococcus carrier 4118998012 103 Z22.330 Heterozygo us methylenetetrahydrofo late reductase mutation 5871514608 67758 E72.12 heterozygo us for the MTHFR O2297G variant Family sveta ing surveillance 853989029 Z30.09 Health Concerns Section Related Observation LastModified by Organization Detai ls LastModified Time None Recorded Concern Status LastModified by Organization Details LastModified Time None Recorded Advance Directives Directive N: Payers Encounter Date Sequence Insurance Name Policy Number Policy Ariza Covered Member ID Ariza Member ID Guarantor Name 04/28/2019 1 [employer] [id number] Robel Franks [id number] Heidi Whitehead 05/07/2019 1 [employer] [id number] Robel Franks [id number] Heidi Whitehead 05/21/2019 1 [place] [id number] Robel Franks [id number] Heidi Whitehead 06/04/2019 1 [place] [id number] Robel Franks [id number] Heidi Whitehead 06/11/2019 1 [facility]: [place] [id number] Robel Franks [id number] Heidi Whitehead Notes Date Note Type Note Provider Name and Address Organization Details Recorded Time 04/28/2019 text/html Vaginal DischargeReported bypatient.Quality:whit e Duration:5 days Context:; condom use: no; history of recurrent vaginal infections Associated Symptoms:no fever/chills; no diarrhea; no abdominal pain; no pelvic pain; no vaginal pain; no pain during intercourse; no vaginal lump; no genital lesion; no fever;vaginal itching;vaginal burning;swelling/redne ss;pain during urination 18 y/o primigravida F, , presents for vaginal discharge and pruritis x5 days. H/o of candidiasis. Patient reports thick, white vaginal discharge associated with pruritis and dysuria. Denies n/v/f, abdominal and pelvic pain or dyspareunia. Also denies contractions, bleeding, leaking of fluids, urinary symptoms, constipation. Pt has no complaints during visit ANMOL MCINTOSH Attn: Accounting,[address] [place], [address], [facility] 04/30/2019 13:46:36 05/07/2019 text/html OB ProblemReport ed bypatient.Duration:per sistent Associated Symptoms:no abdominal pain; no cramping; no contractions; normal movement; no bleeding; no ROM; no vaginal discharge; no dysuria; no frequency; no urgency; no hematuria; no fever; no nausea; no emesis; no constipation; no diarrhea/loose stool; no edema; no visual changes; no headache; no dizziness;vaginal/vulv ar itching or irritation 18 y/o primigravida F, , presents for SHARMIN at 32w5d. H/o MTHFR, recurrent yeast infections, and GBS. Patient reports thick vaginal discharge has resolved. Mild pruritis remains. She denies contractions, bleeding, eaking of fluids, urinary symptoms, constipation. ANMOL MCINTOSH Attn: Accounting,[address] [place], [address], [facility] 05/07/2019 16:01:54 05/21/2019 text/html OB ProblemReport ed bypatient.Associated Symptoms:no abdominal pain; no cramping; no contractions; normal movement; no bleeding; no ROM; no vaginal discharge; no vaginal/vulvar itching or irritation; no dysuria; no frequency; no urgency; no hematuria; no fever; no nausea; no emesis; no constipation; no diarrhea/loose stool; no edema; no visual changes; no headache; no dizziness 18 y/o primigravida F, , presents for SHARMIN at 34w5d. H/o MTHFR, recurrent yeast infections, and GBS. Patient has no specific concerns today. She denies contractions, bleeding, leaking of fluids, urinary symptoms, constipation. ANMOL MCINTOSH Attn: Accounting,[address] [place], [address], [facility] 05/25/2019 14:11:50 06/04/2019 text/html OB ProblemReport ed bypatient.Associated Symptoms:no abdominal pain; no cramping; no contractions; normal movement; no bleeding; no ROM; no vaginal discharge; no vaginal/vulvar itching or irritation; no dysuria; no frequency; no urgency; no hematuria; no fever; no nausea; no emesis; no constipation; no diarrhea/loose stool; no edema; no visual changes; no headache; no dizziness 18 y/o primigravida F, , presents for SHARMIN at 36w5d. H/o MTHFR, anemia of , recurrent yeast infections, and GBS. Patient has no specific concerns today. She denies contractions, bleeding, leaking of fluids, urinary symptoms, constipation. ANMOL MCINTOSH Attn: Accounting,[address] [place], [address], [facility] 06/04/2019 13:36:28 06/11/2019 text/html OB ProblemReport ed bypatient.Associated Symptoms:no abdominal pain; no cramping; no contractions; normal movement; no bleeding; no ROM; no vaginal discharge; no vaginal/vulvar itching or irritation; no dysuria; no frequency; no urgency; no hematuria; no fever; no nausea; no emesis; no constipation; no diarrhea/loose stool; no edema; no visual changes; no headache; no dizziness 18 y/o primigravida F, , presents for SHARMIN at 37w5d. H/o MTHFR, anemia of , recurrent yeast infections, and GBS. Patient has no specific concerns today. She denies contractions, bleeding, leaking of fluids, urinary symptoms, constipation. Amaury Askew null, [place] - SIF 06/11/2019 12:36:26 OBGyn Episode Ob Episode Information Episode Created Date Number of Fetuses Patient Bloodtype Patient rh Status Prepregnancy Weight lbs Domestic Partner Domestic Partner Phone Father Name Coroner'S Juror Status 01/02/20 19 1 B Positive CLOSED Fetus Data First Name Last Name Admitted to NICU Weight (g) Sex Living Outcome Pediatric Complications Fetus ID Race Codes Race Delivery Type [id number] Problems Problem Notes NCB NO EPIDURAL, p ediatrician undecided, Fabio. baby girl, yes to circif boy, having baby girl Name Daisy!, [facility] mr#[id number] [place] appointment 06/18 @ 9 AM, pt informed in office Problem Name Start Date End Date Resolution Snomed Code Note Anemia of 03/30/19 [id number] Group B Streptococcus carrier 01/07/20 [id number] intrapartum antibiotics Heterozygous methylenetetrahydrofolate reductase mutation 01/18/20 19 [id number] heterozygous for the MTHFR [id number] variant Keshav Calculation Initial Keshav Date Initial Exam Date Initial Exam Provider Initial Ultrasound Date Last Menstrual Period Date Ultra Sound Weeks Gestation 06/27/2019 01/01/2019 01/12/2019 09/25/2018 16 Eighteen To Twenty Week Keshav Update Ultra Sound Date Fundal Height At Umbil Quickening Date Ultra Sound Latest Weeks Gestation Final Keshav Confirmed By Final Keshav Confirmed Date Final Keshav Date Ultra Sound Latest Days Gestation 01/13/20 19 16 01/19/2019 06/27/19 20 2 Pre-radha Flowsheet Flowsheet Date 01/01/2019 Madrid Score Blood Edema Fundus Height Fundus Units Glucose Ketones Leukocytes Nitrite Labor Signs Protein Cervic Dilation Cervic Effacement Cervic Station neg none 13 wks none negative trace Type Weight in lbs Pre/Post Dialysis Refused Weight 124.840870869749 BP Diastolic BP Location Tested BP Systolic BP Type 72 104 Fetus Heart Rate Present A 147 Present Fetus Movement Comments NOB labs today. Order for fi rst trimester US given. OB education provided. Flowsheet Date 01/23/2019 Madrid Score Blood Edema Fundus Height Fundus Units Glucose Ketones Leukocytes Nitrite Labor Signs Protein Cervic Dilation Cervic Effacement Cervic Station Type Weight in lbs Pre/Post Dialysis Refused BP Diastolic BP Location Tested BP Systolic BP Type Fetus Heart Rate Present Fetus Movement Comments Flowsheet Date 01/29/2019 Madrid Score Blood Edema Fundus Height Fundus Units Glucose Ketones Leukocytes Nitrite Labor Signs Protein Cervic Dilation Cervic Effacement Cervic Station trace none 18 wks none negative neg Type Weight in lbs Pre/Post Dialysis Refused Weight 133.632673444803 BP Diastolic BP Location Tested BP Systolic BP Type 54 90 sitting 58 102 Fetus Heart Rate Present A 142 Present Fetus Movement A Yes Comments AFP today. Order for 2nd tri mester US given. Flowsheet Date 02/26/2019 Madrid Score Blood Edema Fundus Height Fundus Units Glucose Ketones Leukocytes Nitrite Labor Signs Protein Cervic Dilation Cervic Effacement Cervic Station neg none 22 wks none negative none trace Type Weight in lbs Pre/Post Dialysis Refused Weight 144.310764418606 BP Diastolic BP Location Tested BP Systolic BP Type 62 102 sitting Fetus Heart Rate Present A 140 Present Fetus Movement Comments B12 injection today. Flowsheet Date 03/26/2019 Madrid Score Blood Edema Fundus Height Fundus Units Glucose Ketones Leukocytes Nitrite Labor Signs Protein Cervic Dilation Cervic Effacement Cervic Station trace none 26 wks none negative none neg Type Weight in lbs Pre/Post Dialysis Refused Weight 158.067182602993 BP Diastolic BP Location Tested BP Systolic BP Type 64 94 sitting Fetus Heart Rate Present A 138 Present Fetus Movement A Yes Comments GTT and B12 injection today. Flowsheet Date 04/09/2019 Madrid Score Blood Edema Fundus Height Fundus Units Glucose Ketones Leukocytes Nitrite Labor Signs Protein Cervic Dilation Cervic Effacement Cervic Station trace none 28 wks none negative none neg Type Weight in lbs Pre/Post Dialysis Refused With clothes 161.113841311742 BP Diastolic BP Location Tested BP Systolic BP Type 62 100 sitting Fetus Heart Rate Present A 137 Present Fetus Movement A Yes Comments Tdap at next visit. Flowsheet Date 04/23/2019 Madrid Score Blood Edema Fundus Height Fundus Units Glucose Ketones Leukocytes Nitrite Labor Signs Protein Cervic Dilation Cervic Effacement Cervic Station neg none 30 wks none negative none trace Type Weight in lbs Pre/Post Dialysis Refused Weight 165.951136152935 BP Diastolic BP Location Tested BP Systolic BP Type 68 98 sitting Fetus Heart Rate Present A 136 Present Fetus Movement A Yes Comments Tdap and B-12 injection toda y. Flowsheet Date 04/28/2019 Madrid Score Blood Edema Fundus Height Fundus Units Glucose Ketones Leukocytes Nitrite Labor Signs Protein Cervic Dilation Cervic Effacement Cervic Station Type Weight in lbs Pre/Post Dialysis Refused Weight 168.537967236607 BP Diastolic BP Location Tested BP Systolic BP Type 72 100 sitting Fetus Heart Rate Present Fetus Movement Comments Flowsheet Date 05/07/2019 Madrid Score Blood Edema Fundus Height Fundus Units Glucose Ketones Leukocytes Nitrite Labor Signs Protein Cervic Dilation Cervic Effacement Cervic Station trace none 32 cm none negative none trace Type Weight in lbs Pre/Post Dialysis Refused Weight 173.692779084765 BP Diastolic BP Location Tested BP Systolic BP Type 66 110 sitting Fetus Heart Rate Present A 141 Present Fetus Movement A Yes Comments Flowsheet Date 05/21/2019 Madrid Score Blood Edema Fundus Height Fundus Units Glucose Ketones Leukocytes Nitrite Labor Signs Protein Cervic Dilation Cervic Effacement Cervic Station neg none 34 cm none negative none neg Type Weight in lbs Pre/Post Dialysis Refused Weight 180.902927971424 BP Diastolic BP Location Tested BP Systolic BP Type 60 96 sitting Fetus Heart Rate Present A 129 Present Fetus Movement A Yes Comments B12 injection today. Order f or repeat US given to evaluate growth. Flowsheet Date 06/04/2019 Madrid Score Blood Edema Fundus Height Fundus Units Glucose Ketones Leukocytes Nitrite Labor Signs Protein Cervic Dilation Cervic Effacement Cervic Station neg trace 36 cm none negative none trace 0cm 10% -4 Type Weight in lbs Pre/Post Dialysis Refused Weight 185.489401338285 BP Diastolic BP Location Tested BP Systolic BP Type 74 118 sitting Fetus Heart Rate Present A 143 Present Fetus Movement A Yes Comments Routine care at 36w 5d. Denies contractions, LOF. Cervix posterior and closed, mild effacement. GBS screening completed. US 05/28 with EFW 65.4%, ALONZO 14.10cm. Discussed delivery with patient and she wants to deliver at [place]. Will start seeing Dr. Askew weekly until. Flowsheet Date 06/11/2019 Madrid Score Blood Edema Fundus Height Fundus Units Glucose Ketones Leukocytes Nitrite Labor Signs Protein Cervic Dilation Cervic Effacement Cervic Station neg none 36 cm none negative none neg 0cm 0% - 4 Type Weight in lbs Pre/Post Dialysis Refused With clothes 189.545317934619 BP Diastolic BP Location Tested BP Systolic BP Type 76 120 sitting Fetus Heart Rate Present A 144 Present Fetus Movement A Yes Comments wtc/wlb/ see [facility] next week d el at [place] Menstrual History Last Menstrual Date Menses Monthly On Bcp Conception Prior Menses Frequency Hcg Plus Date Menarche Onset Age 0809/25/2018 true false Genetic Screening And Infection History Question Response Note Patient's Age Will Be 35 Yea rs Or Older At Estimated Date of Delivery false Thalassemia (Mosotho, Israeli, Mediterranean, Or Background): MCV < 80 false Neural Tube Defect (Meningomyelocele, Spina Bifi da, Or Anencephaly) false Congenital Heart Defect false Down Syndrome false Alexey-Sachs (eg, Holiness, Cajun, Malay-[place]) f alse Javier Disease false Sickle Cell Disease Or Trait () false Hemophilia Or Other Blood Disorders false Muscular Dystrophy false Cystic Fibrosis false Brooklyn's Chorea false Mental Retardation/Autism true damion dillard If Yes, Was Person Tested For Fragile X? false unsure Other Inherited Genetic Or Chromosomal Disorder true MTHFR Maternal Metabolic Disorder (eg, Type 1 Diabetes , PKU) false Patient Or Baby's Father Had A Child With Defects Not Listed Above false Recurrent Loss, Or A Stillbirth false Medications (including Suppl ements, Vitamins, Herbs, OTC Drugs), Illicit/Recreational Drugs, Alcohol false If Yes, Agent(s) And Strength/Dosage false Any Other Genetic History false Live With Someone With TB Or Exposed To TB false Patient Or Partner Has History Of Genital Herpes false Rash Or Viral Illness Since Last Menstrual Perio d false History Of STD, Gonorrhea, Chlamydia, HPV, Syphi lis false Other Infection History false History of HIV false History of Hepatitis false Prior GBS-infected child false Plans and Education First Trimester Discussed Date Discussion Item Discussion Note Discuss ed By 01/23/2019 Anticipated course o f care discussed at [facility] 01/[facility]/2019 Nutrition counseling ; special diet; dietary precautions (mercury, listeriosis) discussed at [facility] 01/23/2019 Childbirth classes/h ospital facilities discussed at [facility] 01/23/2019 HIV and other routin e tests discussed at [facility] 01/23/[address] [facility] 01/23/2019 06/11/2019 Bottl e feed, -[facility] 01/23/2019 Dental care discussed at [facility] 01/23/[address] [facility] 01/23/2019 Seat belt use discussed at [facility] a Second Trimester Discussed Date Discussion Item Discussion Note Discuss ed By 01/23/2019 Selecting a care provider [facility] 01/23/2019 family planning/tubal sterilization 06/11/2019 PPbcp, -[facility] 01/29/2019 [facility]when indicated[facility] 01/[facility]2019 Abnormal lab values [email or web address] 01/29[facility]2019 Signs and symptoms o f labor 01/29/2019 Intimate partner violence [email or web address] 01/29/2019 Tobacco/smoking cess ation counseling (ask, advise, assess, assist, and arrange) [place] [address] Third Trimester Discussed Date Discussion Item Discussion Note Discuss ed By 04/24/2019 Intimate partner violence [email or web address] 01/23/2019 Anesthesia plans NCB NO EPIDURAL, cb-r[facility] 04/24/2019 education (n ewborn screening, jaundice, SIDS/safe sleeping position, car seat) [email or web address] 01/23/2019 Circumcision 06/11/2019 baby girl, [place], yes to circ if boy, cb-r[facility] 04/24/2019 Postterm counseling [email or web address] 03/27/2019 movement monitoring given kick coun ts msimpsonma 01/23/2019 06/11/2019 Bottle, cb-rma e [facility] 04/24/2019 Labor signs 04/24/2019 depression [email or web address] [email or web address] 04/24/2019 Family medical leave or disability forms [email or web address] 04/24/2019 Tobacco/smoking cess ation counseling (ask, advise, assess, assist, and arrange) 04/24/2019 Signs and symptoms o f preeclampsia Delivery Information Delivery Date Delivery Type Labor Anesthesia Weeks Gestation Incision Type Labor Labor Length Hrs Delivered By Post Complications Tubal Sterilization Discharge Date Comments afehrenbac her Discharge Information Feeding Method Contraceptive Method Maternal HG B and HCT Levels
--- OUTSIDE RECORDS SUMMARY | 2024-03-25 10:07 | XMS_ITS | Encounter Summary ---
Author Organization [facility] Address [facility] [place] [address] Care Team Providers Care Medical Numerical Control Operator Name Role Phone None, Provider Primary Care Provider Blanco mccormick Encounter Details Date Type Department Care Team (Late st Contact Info) Description 07/12/2021 ToonTimehart Message Enc [facility] Orthopedic & Sports Medicine - [place] [address] [place], [place] [id number] [phone] Joshua Osborn MD [address], [place] [id number] Hand/ wrist Social History Tobacco Use Types Packs/Day Years Used Date Smoking Tobacco: Never Smokeless Tobacco: Never Comments:Never Smoked Alcohol Use Standard Drinks/Week Comments [...] 3, please move on to questions 3-9 0 07/06/2021 Comments No Sex and Gender Information Value Date Recorded Sex Assigned at Not on file Legal Sex Female 6:35 PM CDT Gender Identity Not on file Sexual Orientation Not on file COVID-19 Exposure Response Date Recorded In the last 10 days, have yo u been in contact with someone who was confirmed or suspected to have Coronavirus/COVID-19? No / Unsure 07/06/2021 9:44 AM CDT documented as of this encounter Plan of Treatment Not on file documented as of this encounter Visit Diagnoses Not on filedocumented in this encounter Care Teams Medical Numerical Control Operator Relationship Specialty Start Date End Date None, Provider, PCP - General 10/29/18 documented as of this encounter
--- OUTSIDE RECORDS SUMMARY | 2024-03-25 10:07 | XMS_ITS | Referral Summary ---
Author Organization [facility] [address] Address [address] [place] [address] Care Team Providers Care Landscape Drafter Name Role Phone Akbar Ureña MD Unavailable [phone] Tyree Martínez MD Primary Care Provider [phone] Allergies No known active allergies Medications No [...] Conjugate 7-Valent 11/18/2000,03/13,1999,1999 Tdap 06/25/2019,04/23/2019,06/01/2010 Varicella 11/18/2000 Social History Tobacco Use Types Packs/Day [...] on file Legal Sex Female 2:21 AM GROUP SALES COORDINATOR Gender Identity Not on file Sexual Orientation Not on file 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 on file Not on file Not on file Last Filed Vital Signs [...] 08/06/2023 12:58 PM CDT Plan of Treatment Not on file [...] 1:31 PM CDT 08/06/2023 8:14 PM CDT Tyree Martínez MD LAB MICROBIOLOGY - GENERAL ORDERABLES Final Result Performing Organization Address City/State/[facility] Phone Number [facility] [address] Department [place] [address] from Last 3 Months or Most Recently Relevant to Health Maintenance Insurance [facility] CHOICE OOS Member Subscriber Plan / Payer (Ef fective 2022-Present) Name:Heidi Whitehead Relation to Subscriber:Child Name:HELENE VANN Date of :1996 Address: [address] [place] [address] Payer ID:[id number] (NAIC) Type:JENNA VARGHESE Address: [facility] [id number] [phone] Care Teams Landscape Drafter Relationship Specialty Start Date End Date Tyree Martínez MD [address] [facility] [address] [place] [address] PCP - General Family Medicine 08/06/23 Akbar Ureña MD [address] [place] [address] Referring Physician Obstetrics and Gynecology 08/06/23
--- OUTSIDE RECORDS SUMMARY | 2024-03-25 10:07 | XMS_ITS | Patient Health Summary ---
Author Organization [facility] Care IT Address [address] [place] [address] Care Team Providers Care Tailings Man Name Role Phone Unavailable Primary Care Provider Unavailabl e Note from [facility],non-owned Affiliates and Associated Physician Practices is amultiple site organization consisting of ambulatory clinics and hospital sitesin [place], [place], [place] and [place]. This disclosure is being madepursuant to the Care Everywhere program and may not contain all information available regarding this patient. Last updated 17.[facility] Care IT Allergies No known active allergies Medications * Be aware that medications may not be up to date on this document. Alwaysverify current medications with the patient. * TRI-SPRINTEC tablet(Started 04/27/2018) * norgestim-eth estrad triphasic (TRI-SPRINTEC) tablet(Started 05/14/2018) Take 1 tablet by mouth once daily 4 refills remaining * ferrous gluconate 324 (38 Fe) MG tablet Take 1 (one) tablet by mouth once daily * Vit-Fe Fumarate-FA ( vitamin) 28-0.8 MG tablet Take 1 (one) tablet by mouth once daily Active Problems No known active problems Immunizations * DTaP VACCINE IM (6wk-6yrs)(Given 10/02/2004, 04/20/2004, 11/18/2000, 1999, 1999, 1999) * FLU, HISTORIC VACCINE(Given 02/01/2003) * HEP B VACCINE, PED/ADOL(Given 1999, 1999, 1999) * HIB VACCINE(Given 11/18/2000, 1999, 1999) * MENINGOCOCCAL MCV4O(Given 09/25/2016) * MMR VACCINE(Given 10/02/2004, 04/20/2004, 11/18/2000) * PNEUMOCOCCAL PCV7 CONJ, PEDS(Given 11/18/2000, 03/13/2000, 1999, 1999) * POLIO IPV(Given 10/02/2004, 04/20/2004, 11/18/2000, 1999, 1999) * TDAP, HISTORIC VACCINE(Given 06/25/2019, 04/23/2019, 06/01/2010) * VARICELLA(Given 11/18/2000) Social History Tobacco Use Types Packs/Day Years [...] Mass Index 26.57 12/02/2023 11:16 AM CDT Procedures * SONOGRAM - COMPLETE(Performed 12/27/2023) Performed for Encounter for anatomic survey (HCC), 25 weeks gestation of (HCC) * SARS-COV-2 (COVID-19) AG (IP) POCT(Performed 12/02/2023) Performed for Viral upper respiratory infection * STREP A SCREEN - POCT (IP) URGENT CARE(Performed 12/02/2023) Performed for Viral upper respiratory infection * URINALYSIS MICROSCOPIC ONLY REFLEXED(Performed 05/14/2018) Performed for Dysuria * URINALYSIS REFLEX MICROSCOPIC REFLEX CULTURE(Performed 05/14/2018) Performed for Dysuria * CHLAMYDIA + GC AMPLIFIED PROBE(Performed 05/14/2018) Performed for Encntr for instructional manager exam (general) (routine) w/o abn findings * XR HAND RIGHT 3VW OR MORE(Performed 04/13/2012) Performed for Hand pain, right Results * SONOGRAM - COMPLETE (12/27/2023 11:40 AM TEAM PRIMARY CARE PHYSICIAN) Linked Results Indication ======== Incomplete Heart Views on Outside Scan History ====== OB History ? 3. Para 2 ? [id number] Maternal Assessment Physical Exam ??Height 163 cm, [...] lb 14 oz EFW by ? Hadlock ([id number]) Head / Face / Neck Biometry: Cephalic [...] view. RVOT view. LVOT view. 3-vessel view. 4-ugcgwx-rjlacis view. Situs. Aortic arch view. Bicaval view. [...] as clinically indicated Coding ====== Procedures ? 55926: US Preg Uterus >14 weeks [facility] P[facility] Anatomical Region Laterality Modality Other 12/27/2023 11:4 0 AM TEAM PRIMARY CARE PHYSICIAN Akbar Ureña MD [facility] ORDERABLES * SARS-COV-2 (COVID-19) AG (IP) POCT (12/02/2023 11:44 AM CDT) SARS-CoV-2 Ag Negative Negative [facility] Lot # [id number] [facility] Expiration Date [id number] [facility] Instrument Serial Number NA [facility] COVID Internal Control Acceptable Acceptable [facility] Microbiology SPECIMEN FROM NASAL FOSSAE / Unknown 12/02/2023 11:44 AM CDT Maritza King CAFE ASSOCIATE-LATH TIER LAB - POINT OF CARE ORDERABLES [facility] [address] [place] [address] * STREP A SCREEN - POCT (IP) URGENT CARE (12/02/2023 11:27 AM CDT) Strep A Rapid POCT Negative Negative [facility] QC Verified Yes Yes [facility] Throat ENTIRE THROAT (SURFACE REGION OF NECK) / Unknown 12/02/2023 11:27 AM CDT Maritza King CAFE ASSOCIATE[facility] - POINT OF CARE ORDERABLES Performing Organization Address City/[facility] Co de Phone Number [facility] [address] [place] [address] * URINALYSIS MICROSCOPIC ONLY REFLEXED (05/14/2018 9:41 AM CDT) WBC UA 0-5 0 - 5 /hpf [facility] ACCOUNT BILL RBC UA 0-2 0 - 2 /hpf [facility] ACCOUNT BILL Epithelial Cells (non renal) 0-10 0 - 10 /hpf [facility] ACCOUNT BILL Epithelial Cells (renal) NOT NEEDED [facility] ACCOUNT BILL Comment:Ancillary determined the test is not needed Casts ua NOT NEEDED [facility] ACCOUNT BILL Comment:Ancillary determined the test is not needed Casts UA NOT NEEDED [facility] ACCOUNT BILL Comment:Ancillary determined the test is not needed Crystals UA NOT NEEDED [facility] ACCOUNT BILL Comment:Ancillary determined the test is not needed Crystals UA NOT NEEDED [facility] ACCOUNT BILL Comment:Ancillary determined the test is not needed Mucus UA Present Not Estab. [facility] ACCOUNT BILL Bacteria UA Few None seen/Few [facility] ACCOUNT BILL Yeast UA NOT NEEDED [facility] ACCOUNT BILL Comment:Ancillary determined the test is not needed Trichomonas UA NOT NEEDED [facility] ACCOUNT BILL Comment:Ancillary determined the test is not needed Comment Urine NOT NEEDED [facility] ACCOUNT BILL Comment:Ancillary determined the test is not needed 05/14/2018 9:41 AM CDT 05/14/2018 Narrative Resulting Agency Comment [facility] [address] ??[facility] [phone] Aylin Odom MD LAB - URINALYSIS OR DERABLES [facility] ACCOUNT BILL [address] [place] [address] * URINALYSIS REFLEX MICROSCOPIC REFLEX CULTURE (05/14/2018 9:41 AM CDT) Specific [place] UA 1.025 1.005 - 1.030 [facility] ACCOUNT BILL pH UA 5.5 5.0 - 7.5 [facility] ACCOUNT BILL Color UA Yellow Yellow [facility] ACCOUNT BILL Appearance Clear Clear [facility] ACCOUNT BILL Leukocyte UA Negative Negative [facility] ACCOUNT BILL Protein UA Negative Negative/Tra ce [facility] ACCOUNT BILL Glucose UA Negative Negative [facility] ACCOUNT BILL Ketone UA Negative Negative [facility] ACCOUNT BILL Occult Blood Urine Negative Negative [facility] ACCOUNT BILL Bilirubin UA Negative Negative [facility] ACCOUNT BILL Urobilinogen 1.0 0.2 - 1.0 mg/dL [facility] ACCOUNT BILL Nitrite UA Negative Negative [facility] ACCOUNT BILL Microscopic Examination Urine [facility] ACCOUNT BILL Comment:Microscopic follows if indicated. Microscopic Examination Urine See below: [facility] ACCOUNT BILL Comment:Microscopic was galo cated and was performed. Urinalysis Reflex [facility] ACCOUNT BILL Comment:This specimen will n ot reflex to a Urine Culture. Urine URINE SPECIMEN OBTAINED BY CLEAN CATCH PROCEDURE / Unknown 05/14/2018 9:41 AM CDT 05/14/2018 Narrative Resulting Agency Comment [facility] [place] [address] ??[facility] [phone] Aylin Odom MD LAB - URINALYSIS OR DERABLES [facility] ACCOUNT BILL [address] [place] [address] * CHLAMYDIA + GC AMPLIFIED PROBE (05/14/2018 9:31 AM CDT) Chlamydia NA Urine Negative Negative [facility] ACCOUNT BILL GC NA Urine Negative Negative [facility] ACCOUNT BILL Microbiology ENTIRE ENDOCERVIX / Unknown 05/14/2018 9:31 AM CDT 05/14/2018 Narrative Resulting Agency Comment [facility] [address] ??[place] [phone] Aylin Odom MD LAB - MICROBIOLOGY ORDERABLES Performing Organization Address City/[facility]/ZIP Co de Phone Number [facility] ACCOUNT BILL [address] [place] [address] * XR HAND 3+ VW RIGHT (04/13/2012 5:20 PM TEAM PRIMARY CARE PHYSICIAN) Anatomical Region Laterality Modality Wrist / Hand Radiographic Meghna ging 04/13/2012 5:30 PM TEAM PRIMARY CARE PHYSICIAN Impressions 04/13/2012 5:30 PM TEAM PRIMARY CARE PHYSICIAN No definite osseous abdomen the of the right hand is seen. Narrative 04/13/2012 5:30 PM TEAM PRIMARY CARE PHYSICIAN EXAM: ??Right hand HISTORY: Pain COMPARISON: None FINDINGS: Three view examination of the right hand was performed. The right second finger is not well extended and is ??suboptimally evaluated. The remainder of the exam is within normal limits without evidence of osseous or soft tissue abnormality. Procedure Note [facility], Dawson C., MD - 04/13/2012 EXAM: Right hand HISTORY: Pain COMPARISON: None FINDINGS: Three view examination of the right hand was performed. The right second finger is not well extended and is suboptimally evaluated. The remainder of the exam is within normal limits without evidence of osseous or soft tissue abnormality. IMPRESSION No definite osseous abdomen the of the right hand is seen. Delmar Pitt III, MD DIAGNOSTIC IMAGING ORDERABLES
--- OUTSIDE RECORDS SUMMARY | 2024-03-25 10:07 | XMS_ITS | Encounter Summary ---
Author Organization [facility] Address [facility] [place] [address] Care Team Providers Care Weigher Production Name Role Phone None, Provider Primary Care Provider Blanco mccromick Encounter Details Date Type Department Care Team (Late st Contact Info) Description 10/17/2021 CorMatrixt Message Enc [facility] [place] [address] [place], [place] [id number] [phone] Joshua Osborn MD [address], [place] [id number] [facility] Social History Tobacco Use Types Packs/Day Years [...] suspected to have Coronavirus/COVID-19? No / Unsure 10/17/2021 9:45 AM CDT documented as of this encounter Plan of Treatment Not on file documented as of this encounter Visit Diagnoses Not on filedocumented in this encounter Care Teams Weigher Production Relationship Specialty Start Date End Date None, Provider, PCP - General 10/29/18 documented as of this encounter
[2024-03-25] MEDS: LACTATED RINGERS 1,000 ML 125 ML IV CONT (10:51)
[2024-03-25] MEDS: OXYTOCIN 30 UNITS/NS 500 ML 30 UNITS/500 ML BAG IV CONT (10:52)
[2024-03-25 10:57] LABS: Add Urine Microscopic? YES; Appearance Urine Cloudy (Clear); Bacteria Urine None Seen /hpf; Bilirubin Urine 1+ (Negative); Blood Urine Negative (Negative); Color Urine Dark Yellow (Yellow); Glucose Urine UA Negative (Negative); Ketones Urine Trace mg/dL (Negative); Leukocyte Esterase Ur 2+ LEU/UL (Negative); Nitrate Urine Negative (Negative); Non Pathogenic Casts 0-2; Protein Urine 1+ mg/dL (Negative); RBC Urine 0-2 /hpf (0-2); Specific Grav Ur 1.023 (1.001-1.035); Squamous Epithelial Cell Urine Few /hpf (Few); WBC Urine 51-100 /hpf (0-3); pH Urine 6.5 (5.0-9.0)
[2024-03-25 10:58] LABS: Basophils Percent Auto 0.2 % (0.2-1.2); Eosinophils Percent Auto 0.1 % (0-4.4); Hematocrit 33.8 % (37.0-47.0); Hemoglobin 10.4 g/dL (12.0-15.0); Immature Granulocyte Absolute 0.07 K/mm3 (0.00-0.031); Immature Granulocyte Percent A 0.7 % (0-0.5); Lymphocytes Absolute Auto 1.75 K/mm3 (0.9-3.2); Lymphocytes Percent Auto 17.7 % (18.3-44.2); Mean Corpuscular HGB Conc 30.8 g/dl (32-36); Mean Corpuscular Hemoglobin 23.6 pg (26-34); Mean Corpuscular Volume 76.6 fl (80-100); Mean Platelet Volume 10.8 fl (7.4-10.4); Monocytes Absolute Auto 0.6 K/mm3 (0.1-0.6); Monocytes Percent Auto 5.7 % (2.6-8.5); Neutrophils Absolute Auto 7.5 K/mm3 (1.3-6.7); Neutrophils Percent Auto 75.6 % (45.5-73.1); Platelet Count Result 233 k/mm3 (150-375); Red Blood Count 4.41 M/mm3 (4.2-5.4); Red Cell Distribution Width 17.4 % (11.5-14.5); White Blood Count 9.9 K/mm3 (4.5-10.0)
[2024-03-25 11:44] LABS: HIV 1/2 Ab P24 Ag Result Negative (Negative)
[2024-03-25 11:47] LABS: Rapid Plasma Reagin Non-Reactive (NonReactive)
--- NOTE | 2024-03-25 13:25 | WPDANESEPPF ---
Anes - Initial Pre Proc Eval Date/Time: 03/25/24 13:25 Surgeon: Akbar Ureña MD Pre Op Diagnosis: contractions/leaking Patient Data Age: 23 Gender: F Height: 1.63 m Weight: 80 kg Last Vital Signs Pulse 91 03/25/24 13:22 BP 107/68 03/25/24 13:22 Pulse Ox 96 03/25/24 13:20 Allergies Allergy/AdvReac Type Severity Reaction Status Date / Time No Known Allergies Allergy Verified 03/23/24 13:32 Home Medications ?Medication ?Instructions ?Recorded ?Confirmed ?Type vits no.126-ferrous fum tablet PO 10/09/23 03/23/24 History 28 mg iron-folic acid 800 mcg tablet (Classic ) Laboratory Tests 03/25/24 10:06 WBC 9.9 K/mm3 (4.5-10.0) RBC 4.41 M/mm3 (4.2-5.4) Hgb 10.4 L g/dL (12.0-15.0) Hct 33.8 L % (37.0-47.0) MCV 76.6 L fl (80-100) MCH 23.6 L pg (26-34) MCHC 30.8 L g/dl (32-36) RDW 17.4 H % (11.5-14.5) Plt Count 233 k/mm3 (150-375) MPV 10.8 H fl (7.4-10.4) Immature Gran % (Auto) 0.7 H % (0-0.5) Neut % (Auto) 75.6 H % (45.5-73.1) Lymph % (Auto) 17.7 L % (18.3-44.2) [place] % (Auto) 5.7 % (2.6-8.5) Eos % (Auto) 0.1 % (0-4.4) Baso % (Auto) 0.2 % (0.2-1.2) Lymph # (Auto) 1.75 K/mm3 (0.9-3.2) [place] # (Auto) 0.6 K/mm3 (0.1-0.6) Eos # (Auto) 0.0 K/mm3 (0-0.3) Baso # (Auto) 0.0 K/mm3 (0.0-0.1) Abs Immat Gran (auto) 0.07 H K/mm3 (0.00-0.031) Absolute Neuts (auto) 7.5 H K/mm3 (1.3-6.7) Absolute Nucleated RBC 0.000 K/mm3 (0.0-0.012) Nucleated RBC % 0.0 % (0.0-0.2) Urine Color Dark yellow (Yellow) Urine Appearance Cloudy H (Clear) Urine pH 6.5 (5.0-9.0) Ur Specific [place] 1.023 (1.001-1.035) Urine Protein 1+ H mg/dL (Negative) Urine Glucose (UA) Negative mg/dL (Negative) Urine Ketones Trace H mg/dL (Negative) Ur Blood (Man) Negative (Negative) Urine Nitrate Negative (Negative) Urine Bilirubin 1+ H (Negative) Urine Urobilinogen 1.0 mg/dL (<2.0) Ur Leukocyte Esterase 2+ H JAUN/UL (Negative) Urine RBC 0-2 /hpf (0-2) Urine WBC 51-100 /hpf (0-3) Ur Squamous Epith Cells Few /hpf (Few) Urine Bacteria None seen /hpf Urine Casts 0-2 RPR Non-reactive (NonReactive) HIV 1&2 Ab/P24 Ag 4thGn Negative (Negative) Blood Type B Positive Antibody Screen Negative Patient hx anesthesia problems: none Family hx anesthesia problems: none Results Review: All pre-operative results and documents have been reviewed as part of the pre-operative evaluation. [facility] Past Medical History Medical History Anxiety and depression Obesity and not yet delivered Suppression of menstruation Healthy female adult Surgical History Surgical History No history of previous surgery Family History Family History Other No problems noted. Grandparent Cancer Diabetes mellitus Sibling Autism Social History Social History Smoking status: Never smoker Second hand tobacco smoke exposure: No Alcohol intake: never Substance use: never Substance use type: does not use Do You Feel Safe in your Home?: Yes Lack of Transportation: No Lack of Food: Sometimes True Current Housing: Decline to Answer Concerned About Future Housing: Decline to Answer Difficulty Paying Gas/Electric Bills: Decline to Answer Difficulty Paying for Meds: Decline to Answer Currently Unemployed: Decline to Answer Education: Decline to Answer Difficulty w/ Childcare or Family Care: Decline to Answer Living arrangements: other Additional living arrangements comments: single Occupation/Education: occupation Additional occupation/education comments: [employer] Gender identity (if verbalized by the patient): Female Sexual Orientation (if Verbalized by the Patient): Straight or Heterosexual Spiritual care concerns: No Anes - Eval Final PreProcedure Day of Procedure 03/25/24 13:25 Patient weight: obese Heart: regular rate and rhythm Lungs: clear to auscultation Neurological: alert and oriented ASA classification: II Emergent: no Anesthetic plan: proceed Anesthesia type and monitoring: regional epidural and standard monitoring Results Review: All pre-operative results and documents have been reviewed as part of the pre-operative evaluation. Informed Consent: The patient's anesthetic plan and its attendant risks and benefits were discussed with the patient/family/POA. Questions were solicited and answers provided to the satisfaction of the patient/family/POA.
[2024-03-25] MEDS: ceFAZolin 2 GM/D5W 50 ML 2 GM/50 ML BAG IVPB (13:37)
--- NOTE | 2024-03-25 16:41 | WPDHPUPDATE1 ---
History and Physical Update Update Date/Time: 03/25/24 16:41 History and Physical has been reviewed, including an updated exam of the patient. There are NO changes in the patient's condition. Risks, benefits, and alternatives have been discussed and questions answered. Patient agrees to proceed with procedure.
--- NOTE | 2024-03-25 16:42 | PM.OBPRVD ---
OB - Vaginal Delivery Note Procedure Delivery date: 03/25/24 Delivery augmentation: Pitocin Delivery monitor: External FHT and External Uterine Route of delivery: Episiotomy description: None Laceration Description: None Specimen: No Quantitative Blood Loss (ml): 300 Anesthesia type: Epidural Disposition: Floor Complications: No immediate complications Narrative: Patient prepped and draped usual manner for this procedure. Maternal expulsive efforts readily delivered vertex over intact perineum. Rest of baby was delivered without difficulty, cord clamped cut, baby was placed on maternal abdomen. Placenta delivered spontaneously. Cervix vagina vulva were inspected with no lacerations or tears. Uterus was well contracted. Baby Gestational Age by Date: 38 gender: Male Weight (pounds): 8 Weight (ounces): 0 presentation: vertex position: Right Occiput Posterior Placenta delivery description: Spontaneous Cord Vessel Description: 3 Vessels
[2024-03-25] MEDS: OXYTOCIN 30 UNITS/NS 500 ML 30 UNITS/500 ML BAG 125 UNITS IV CONT (17:20)
[2024-03-25] MEDS: WITCH HAZEL 40 PADS 1 PAD TOPICAL (18:59)
[2024-03-25] MEDS: BENZOCAINE 20% AER SPR (*SP) 56 GM CAN 1 SPRAY TOPICAL (18:59)
--- NOTE | 2024-03-25 19:50 | PC.NURSE ---
Patient transferred to post room #282 via ( W/C ). Support person present. Oriented to unit, room, information board, rooming in, admission packet and security measures. Patient verbalizes understanding.
[2024-03-25] MEDS: ACETAMINOPHEN 325 MG TABLET 650 MG PO (20:33)
[2024-03-25] MEDS: IBUPROFEN 600 MG TABLET PO (20:33)
[2024-03-26 00:58] VITALS: BP 92/52; PULSE 89; RESP 18; TEMP 36.7; O2SAT 97
[2024-03-26 06:01] LABS: Hematocrit 32.1 % (37.0-47.0); Hemoglobin 9.6 g/dL (12.0-15.0)
[2024-03-26] MEDS: POLYSACCHARIDE IRON COMPLEX 150 MG CAPSULE PO ×2 (07:22→16:20)
[2024-03-26] MEDS: DOCUSATE SODIUM 100 MG CAPSULE PO ×2 (07:22→16:20)
[2024-03-26] MEDS: IBUPROFEN 600 MG TABLET PO (07:24)
[2024-03-26] MEDS: ACETAMINOPHEN 325 MG TABLET 650 MG PO (07:24)
[2024-03-26 07:40] VITALS: BP 98/70; PULSE 77; RESP 18; TEMP 36.2; O2SAT 97
[2024-03-26 08:00] VITALS: PULSE 77; RESP 18; O2SAT 97
--- NOTE | 2024-03-26 09:35 | PM.OBDSVD ---
DS: Admitting Diagnosis Discharge Date 03/26/2024 Admitting Diagnosis DS: Discharge Diagnosis Discharge Diagnosis (1) , delivered: Code(s): O80 - Encounter for full-term uncomplicated delivery Status: Acute OB - DS: Summary OB Procedures : None OB Procedures Intrapartum: Spontaneous Vag Delivery OB Procedures: : None Peripartum Data Laceration Description: None Episiotomy description: None Time Spent with Patient Time attestation: Total time spent providing and/or coordinating discharge services: DS: Data Data Completed and Pending Labs on day of discharge: Labs from last 24 hours 03/26/24 03/25/24 05:41 10:06 WBC 9.9 RBC 4.41 Hgb 9.6 L 10.4 L Hct 32.1 L 33.8 L MCV 76.6 L MCH 23.6 L MCHC 30.8 L RDW 17.4 H Plt Count 233 MPV 10.8 H Immature Gran % (Auto) 0.7 H Neut % (Auto) 75.6 H Lymph % (Auto) 17.7 L [place] % (Auto) 5.7 Eos % (Auto) 0.1 Baso % (Auto) 0.2 Lymph # (Auto) 1.75 [place] # (Auto) 0.6 Eos # (Auto) 0.0 Baso # (Auto) 0.0 Abs Immat Gran (auto) 0.07 H Absolute Neuts (auto) 7.5 H Absolute Nucleated RBC 0.000 Nucleated RBC % 0.0 Urine Color Dark yellow Urine Appearance Cloudy H Urine pH 6.5 Ur Specific [place] 1.023 Urine Protein 1+ H Urine Glucose (UA) Negative Urine Ketones Trace H Ur Blood (Man) Negative Urine Nitrate Negative Urine Bilirubin 1+ H Urine Urobilinogen 1.0 Ur Leukocyte Esterase 2+ H Urine RBC 0-2 Urine WBC 51-100 Ur Squamous Epith Cells Few Urine Bacteria None seen Urine Casts 0-2 RPR Non-reactive HIV 1&2 Ab/P24 Ag 4thGn Negative Blood Type B Positive Antibody Screen Negative Discharge Plan Discharge Attending physician on discharge: Akbar Ureña Discharging Clinician: Akbar Ureña Activity: as tolerated and pelvic rest Diet: as tolerated Patient Language: Citizen Of [place] Discharge Medications: New ibuprofen 600 mg Tablet 600 mg PO Q6H PRN (Reason: Cramping) Qty: 30 0RF Continued Classic 28 mg iron- 800 mcg tablet PO sertraline 50 mg tablet 25 mg Date of admission: 03/25/24 09:11 Primary Care Provider: Akbar Ureña Admitting Provider: Akbar Ureña Attending physician on admission: Akbar Ureña Condition: Stable
[2024-03-26] MEDS: TETANUS,DIPHTHERIA,AC PERTUSSIS ADULT (0.5 ML) BOOSTRIX IM (12:54)
[2024-03-26 15:48] VITALS: BP 105/64; PULSE 67; RESP 18; TEMP 36.8; O2SAT 97
[2024-03-27 10:21] VITALS: BP 126/69; PULSE 69; RESP 18; TEMP 36.5; O2SAT 100
== END 2024-03-26 20:04 | disposition home or self-care (01) | DRG 807 ==
LOC: ANHLDR 09:33 → ANHOB2 20:25
PROVIDERS: Admitting Provider Obstetrics & Gynecology; PCP Obstetrics & Gynecology; Visit Provider Obstetrics & Gynecology
DX: O80 Encounter for full-term uncomplicated delivery (principal); Z37.0 Single live birth; Z3A.38 38 weeks gestation of pregnancy
CPT/HCPCS: 36415; 81001; 85014; 85018; 85025; 86592; 86703; 86850; 86900; 86901; 87086; 90715; A9270; G0432; J0690; J2590; J2795; J7120

== ENCOUNTER 2024-05-21 17:28 | Outpatient (CLI) | payer BC, SELFPAY ==
--- OUTSIDE RECORDS SUMMARY | 2024-05-21 17:32 | XMS_ITS | Referral Summary ---
Author Organization [facility] [address] [place] [address] Care Team Providers Care Cut In Station Operator Name Role Phone Akbar Ureña MD Unavailable [phone] Tyree Martínez MD Primary Care Provider [phone] Allergies No known active allergies Medications No [...] vs benefits. 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 Reactive: Positive for HCV antibodies. This may represent current or past HCV infection. Supplemental molecular testing will be automatically performed to determine current infection status in accordance with current CDC screening recommendations. Interpretive data was last revised on 2019. Blood 08/06/2023 1:31 PM CDT 08/06/2023 8:14 PM CDT Tyree Martínez MD LAB MICROBIOLOGY - GENERAL ORDERABLES Final Result Performing Organization Address City/State/[facility] Phone Number [facility] [address] Department [place] [address] from Last 3 Months or Most Recently Relevant to Health Maintenance Insurance [facility] CHOICE OOS Care Teams Cut In Station Operator Relationship Specialty Start Date End Date Tyree Martínez MD [address] [facility] [address] [place] [address] PCP - General Family Medicine 08/06/23 Akbar Ureña MD [address] [place] [address] Referring Physician Obstetrics and Gynecology 08/06/23
--- OUTSIDE RECORDS SUMMARY | 2024-05-21 17:32 | XMS_ITS | Clinical Summary ---
Author Organization [facility]local Address [address] [place] [address] Care Team Providers Care Tube Winder Name Role Phone Unavailable Primary Care Provider Unavailabl e Source Comments [facility],non-owned Affiliates and Associated Physician Practices is amultiple site organization consisting of ambulatory clinics and hospital sitesin [place], [place], [place] and [place]. This disclosure is being madepursuant to the Care Everywhere program and may not contain all information available regarding this patient. Last updated 17.[facility] Allergies No known active allergies Medications * [...] VACCINE, PED/ADOL 1999,1999, HIB VACCINE 11/18/2000,1999,1999 MENINGOCOCCAL ACWY MENVEO 09/25/2016 MMR VACCINE 10/02/2004,04/20/2004,11/18/2000 PNEUMOCOCCAL PCV7 CONJ, PEDS 11/18/2000,03/13/19 01,1999,1999 POLIO IPV 10/02/2004, 5,11/18/2000,1999, TDAP, HISTORIC VACCINE [...] 67 12/02/2023 11:16 AM CDT Temperature 36.6 C (97.8 F) 12/02/2023 11:16 AM CDT Respiratory Rate 12 12/02/2023 11:16 AM CDT [...] 05/15/2019 05/14/2018 COVID-19 VACCINE ( season) 2023 OB-ONE HOUR GLUCOSE 12/30/2023 OB-TDAP CURRENT 01/06/20242019, 04/23/2019, 06/01/2010 OB-RHOGAM INJECTION 01/13/2024 DEPRESSION SCREENING 02/19/2024 12/02/2023 OB-GROUP B STREP SCREEN 03/02/2024 INFLUENZA VACCINE (Season Ended) 2024 02/01/2003 DTAP/TDAP/TD VACCINES (9 - Td or Tdap) 06/24/2029 06/25/2019, 04/23/2019, 06/01/2010, Additional history exists ZOSTER VACCINE (1 of 2) 06/06/2049 HEPATITIS B VACCINE Completed 1999, 1999, 1999 HIB VACCINE Completed 11/18/2000, 09/19, 1999 PNEUMOCOCCAL VACCINE Completed 11/18/2000, 03/13/2000, 1999, Additional history exists MENINGOCOCCAL GROUPS A/C/Y/W VACCINE Completed 09/25/2016 MENINGOCOCCAL (Group B) VACCINE SHARED DECISION-MAKING Aged Out No longer eligible based on patient's age to complete this topic Respiratory Syncytial Virus (RSV) Vaccine Pt: or over 60 yrs (No Doses Required) Completed Procedures Procedure Name Priority Date/Time Associated Diagnosis Comments CHLAMYDIA + GC AMPLIFIED PROBE Routine 05/14/2018 9:31 AM CDT 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
--- OUTSIDE RECORDS SUMMARY | 2024-05-21 17:32 | XMS_ITS | Clinical Summary ---
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 Not on file [...] 2023 02/01/2003 Depression Screening 08/05/2024 08/06/2023, 08/06/19 Regular Well Visit/Exam 18-64 08/05/2024 08/06/2023 DTaP/Tdap/Td Vaccine (9 - Td or Tdap) 06/24/2029 06/25/2019, 04/23/2019, 06/01/2010, Additional history exists Hepatitis B Screening Completed 1999 , 1999, 1999 Pneumococcal vaccine <65 Completed 001, 03/13/2000, 1999, [...] - GENERAL ORDERABLES Final Result [facility] [id number] [address] Department [place] [address] from Last 3 Months or Most Recently Relevant to Health Maintenance Insurance [employer] OOS Care Teams Civil Engineering Drafter Relationship Specialty Start Date End Date Tyree Martínez MD [address] [facility] [address] [place] [address] PCP - General Family Medicine 08/06/23 Akbar Ureña MD [address] [place] [address] Referring Physician Obstetrics and Gynecology 08/06/23
--- OUTSIDE RECORDS SUMMARY | 2024-05-21 17:32 | XMS_ITS | Encounter Summary ---
Author Organization [facility] Address Formerly [facility] [place] [address] Care Team Providers Care Team Manager Name Role Phone None, Provider Primary Care Provider Blanco mccormick Encounter Details Date Type Department Care Team (Late st Contact Info) Description 07/12/2021 [employer] Message Enc [facility] Orthopedic & Sports Medicine - [place] [address] [place], [place] [id number] [phone] Joshua Osborn MD [address] [place], [place] [phone] Hand/ wrist Social History Tobacco Use Types [...] on filedocumented in this encounter Care Teams Team Manager Relationship Specialty Start Date End Date None, Provider, PCP - General 10/29/18 documented as of this encounter
--- OUTSIDE RECORDS SUMMARY | 2024-05-21 17:32 | XMS_ITS | Encounter Summary ---
Author Organization [facility] Address [facility] [place] [address] Care Team Providers Care Personal Security Specialist Name Role Phone None, Provider Primary Care Provider Blanco mccormick Encounter Details Date Type Department Care Team (Late st Contact Info) Description 10/17/2021 [employer] Message Enc [facility] Orthopedic & Sports Medicine - [place] [address] [place], [place] [id number] [phone] Joshua Osborn MD [address] [place], [place] [phone] The Surgery Social History Tobacco Use Types [...] on filedocumented in this encounter Care Teams Personal Security Specialist Relationship Specialty Start Date End Date None, Provider, PCP - General 10/29/18 documented as of this encounter
--- OUTSIDE RECORDS SUMMARY | 2024-05-21 17:32 | XMS_ITS | Clinical Summary ---
Author Organization [facility] Address [address] [place] [address] Care Team Providers Care Frame Welder [employer] Name Role Phone None, Provider MD Primary [...] 78 10/17/2021 9:49 AM CDT Temperature 36.6 C (97.8 F) 07/06/2021 10:09 AM CDT Respiratory Rate 18 07/06/2021 10:09 AM CDT [...] 05/14/2018 Cervical Cancer Screening 05/14/2021 COVID-19 Vaccine (2023- season) 2023 DTaP, Tdap and Td Vaccines (9 - [...] to complete this topic Insurance Care Teams [employer] Relationship Specialty Start Date End Date None, Provider, PCP - General 10/29/18
--- OUTSIDE RECORDS SUMMARY | 2024-05-21 17:33 | XMS_ITS | Data Portability ---
Author Organization DANIELA Mauricio DUTTA Address [address] [place] [address] Care Team Providers Care Bottom Turner Name Role Phone AALIYAH LEAHY Primary Care Provider Sonja ilable Assessment Encounter Date Assessment Date Assessment LastModified by Organization Details LastModified Time 04/28/2019 04/28/2019 TANESHA Blancas ([facility]) Not available 04/29/2019 04:03:41 05/07/2019 05/07/2019 TANESHA Blancas ([facility]) Not available 05/07/2019 14:34:29 Plan of Treatment Reminders Order Date Submit Date Provider Last Modified By Organization Details Last Modified Time Details Appointments None recorded. Lab urinalysi s, dipstick 2019 020 [email or web address] In-Office Order, Internal Use Only DO Not Attach Compendium DO Not Attach Compendium, Do Not Delete/merge, [id number] 0 12:34:47 culture, vaginal/r ectal, streptoco ccus group B - Please fax results to [facility] at 2019 020 DAISY [facility] (Centralized Electronic Ordering - All Locations), Patient Can Go To The Location Of Their Choice, [id number] 0 10:36:03 HSV (1+2) DNA, qual, PCR, unspecifi ed specimen - Please fax results to [facility] at [phone] 020 DAISY [facility] (Centralized Electronic Ordering - All Locations), Patient Can Go To The Location Of Their Choice, [id number] 0 10:36:02 bacterial vaginosis + vaginitis panel, vaginal - Please fax results to [facility] at 2019 020 DAISY [facility] (Centralized Electronic Ordering - All Locations), Patient Can Go To The Location Of Their Choice, [id number] 0 10:36:02 vdrl/RPR, serum 2019 tellisonrn [facility], [address], [place], [address], 0 13:15:40 HIV (1+2) Ab screen, serum 2019 tellisonrn [facility], [address], [place], [address], 0 13:15:40 HBsAg (hepatiti s B surface Ag), serum 2019 tellisonrn [facility], [address], [place], [address], 0 10:42:02 urinalysi s, dipstick 2019 020 [email or web address] 1 In-Office Order, Internal Use Only DO Not Attach Compendium DO Not Attach Compendium, Do Not Delete/merge, [id number] 0 11:13:21 CBC 2019 020 DAISY [facility], [address], [place], [address], 0 09:08:33 urinalysi s, dipstick 2019 020 DAISY In-Office Order, Internal Use Only DO Not Attach Compendium DO Not Attach Compendium, Do Not Delete/merge, [id number] 0 11:03:51 urinalysi s, dipstick 2019 [email or web address] 1 In-Office Order, Internal Use Only DO Not Attach Compendium DO Not Attach Compendium, Do Not Delete/merge, [id number] 0 11:31:13 bacterial vaginosis + vaginitis panel, vaginal 2019 DAISY [facility], [address], [address], [address], 0 08:18:02 Referral None recorded. Procedures None recorded. Surgeries None recorded. Imaging US, obstetric , 3rd trimester 2019 [facility] ([facility]), [address] [place], [address], 0 10:41:06 Medication Orders Junel Fe 24 1 mg-20 mcg (24)/75 mg (4) tablet 2019 INTERFACE [facility] #20836, [address], [place], [id number], 0 12:35:59 cyanocoba sy (vit B-12) 1,000 mcg/mL injection solution 2019 [email or web address] Not available 0 15:01:07 fluconazo le 150 mg tablet 2019 INTERFACE [facility] #34825, [address], [place], [id number], 0 11:36:17 terconazo le 0.4 % vaginal cream 2019 INTERFACE [facility] #98330, [address], [place], [id number], 0 12:16:19 nystatin 100,000 unit/gram topical cream 2019 020 INTERFACE [facility] #35202, [address] [facility], [place], [place], [id number], 0 12:16:19 Patient TargetsNo targets recorded. Patient Instructions Encounter Date Encounter Id Patient Instructions Last Modified By Organization Details Last Modified Time 05/07/2019 [id number] vaginal yeast infection: care instructions Not available 05/07/2019 15:59:15 Reason for Referral None Reported. Results Created Date Observation Date Name Description Value Unit Range Abnormal Flag Note LastModifiedBy Organization Detail LastModifiedTime 06/11/19 20 06/11/2019 urina lysis , dipst ick Leukocytes Trace Not Available In-Offi ce Order Internal Use Only DO Not Attach Compendium DO Not Attach Compendium, Do Not Delete/merge, [id number] 06/11/2019 12:22:49 06/11/19 20 06/11/2019 urina lysis [...] 06/11/2019 urina lysis , dipst ick Specific Mobile 1.030 Not Available In-Off ice Order Internal [...] 20 04/09/2019 urina lysis , dipst ick Specific Mobile 1.025 Not Available In-Off ice Order Internal [...] Attach Compendium, Do Not Delete/merge, 04/09/2019 10:59:00 04/23/19 20 04/23/2019 urina lysis , dipst ick Leukocytes Small [...] 20 04/23/2019 urina lysis , dipst ick Protein Trace [...] 04/23/2019 urina lysis , dipst ick Specific Mobile 1.030 Not Available In-Off ice Order Internal Use Only DO Not Attach Compendium DO Not Attach Compendium, Do Not Delete/merge, 04/23/2019 10:16:37 04/23/19 20 04/23/2019 urina lysis , dipst ick Ketone Negati ve Not Available In-Office Order Internal Use Only DO Not Attach Compendium DO Not Attach Compendium, Do Not Delete/merge, 04/23/2019 10:16:37 04/23/19 20 04/23/2019 urina lysis , dipst ick Bilirubin Negati ve Not Available In-Office Order Internal Use Only DO Not Attach Compendium DO Not Attach Compendium, Do Not Delete/merge, 04/23/2019 10:16:37 04/23/1904/23/2019 urina lysis , dipst ick Glucose Negati ve Not Available In-Office Order Internal Use Only DO Not Attach Compendium DO Not Attach Compendium, Do Not Delete/merge, [id number] 04/23/2019 10:16:37 04/28/1904/30/2019 bacte rial vagin osis + vagin itis panel , vagin al atopobium vaginae LOW - 0 score Not Available [facility] ([facility]) [address] [place], [address], 05/01/2019 08:18:02 04/28/1904/30/2019 bacte rial vagin osis + vagin itis panel , vagin al bvab 2 LOW - 0 score Not Available [facility] ([facility]) [address] [place], [address], 05/01/2019 08:18:02 04/28/1904/30/2019 bacte rial vagin osis [...] is not neces ginny. Not Available [facility] ([facility]) [address] [facility], [place], [address], 05/01/2019 08:18:02 04/28/1905/01/2019 bacte rial vagin osis + vagin itis panel , vagin al lala albicans, NA POSITI VE negati ve abnormal Not Available [facility] ([facility]) [address] [place], [address], 05/01/2019 08:18:02 04/28/1905/01/2019 bacte rial vagin osis + vagin itis panel , vagin al lala glabrata, NA NEGATI VE negati ve Not Available [facility] ([facility]) [address] [place], [address], 05/01/2019 08:18:02 04/28/1905/01/2019 bacte rial vagin osis + vagin itis panel , vagin al trich vag by NA NEGATI VE negati ve Not Available [facility] ([facility]) [address] [place], [address], 05/01/2019 08:18:02 04/28/1905/01/2019 bacte rial vagin osis + vagin itis panel , vagin al chlamydia trachomatis, NA NEGATI VE negati ve Not Available [facility] ([facility]) [address] [place], [address], 05/01/2019 08:18:02 04/28/1905/01/2019 bacte rial vagin osis + vagin itis panel , vagin al neisseria gonorrhoeae, NA NEGATI VE negati ve Not Available [facility] ([facility]) [address] [place], [address], 05/01/2019 08:18:02 05/07/1905/07/2019 urina lysis , dipst ick Leukocytes Small Not Available In-Offi ce Order Internal Use Only DO Not Attach Compendium DO Not Attach Compendium, Do Not Delete/merge, [id number] 05/07/2019 10:58:24 05/07/19 20 05/07/2019 urina lysis , dipst ick Nitrite negati [...] 05/07/2019 urina lysis , dipst ick Specific Mobile 1.030 Not Available In-Off ice Order Internal [...] 05/21/2019 urina lysis , dipst ick Specific Mobile 1.025 Not Available In-Off ice Order Internal Use Only DO Not Attach Compendium DO Not Attach Compendium, Do Not Delete/merge, [id number] 05/21/2019 10:41:25 05/21/19 20 05/21/2019 urina lysis , dipst ick Ketone Negati ve Not Available In-Office Order Internal Use Only DO Not Attach Compendium DO Not Attach Compendium, Do Not Delete/merge, [id number] 05/21/2019 10:41:25 05/21/19 20 05/21/2019 urina lysis , dipst ick Bilirubin Negati ve Not Available In-Office Order Internal Use Only DO Not Attach Compendium DO Not Attach Compendium, Do Not Delete/merge, [id number] 05/21/2019 10:41:25 05/21/19 20 05/21/2019 urina lysis , dipst ick Glucose Negati ve Not Available In-Office Order Internal Use Only DO Not Attach Compendium DO Not Attach Compendium, Do Not Delete/merge, [id number] 05/21/2019 10:41:25 06/04/19 20 06/05/2019 CBC WBC 9.7 x10e3 /uL 3.4-10 .8 Not Available [facility] ([facility]) [address] [place], [address], 06/05/2019 09:08:33 06/04/1906/05/2019 CBC RBC 4.08 x10e6 /uL 3.77-5 .28 Not Available [facility] ([facility]) [address] [place], [address], 06/05/2019 09:08:33 06/04/1906/05/2019 CBC hemoglobin 9.9 g/dL 11.1-1 5.9 below low normal Not Available [facility] ([facility]) [address] [place], [address], 06/05/2019 09:08:33 06/04/1906/05/2019 CBC hematocrit 30.4 % 34.0-4 6.6 below low normal Not Available [facility] ([facility]) [address] [place], [address], 06/05/2019 09:08:33 06/04/1906/05/2019 CBC MCV 75 fL 79-97 below low normal Not Available [facility] ([facility]) [address] [place], [address], 06/05/2019 09:08:33 06/04/1906/05/2019 CBC MCH 24.3 pg 26.6-3 3.0 below low normal Not Available [facility] ([facility]) [address] [place], [address], 06/05/2019 09:08:33 06/04/1906/05/2019 CBC MCHC 32.6 g/dL 31.5-3 5.7 Not Available [facility] ([facility]) [address] [place], [address], 06/05/2019 09:08:33 06/04/1906/05/2019 CBC RDW 15.7 % 11.7-1 5.4 above high normal Not Available [facility] ([facility]) [address] [place], [address], 06/05/2019 09:08:33 06/04/1906/05/2019 CBC platelets 259 x10e3 /uL 150-45 0 Not Available [facility] ([facility]) [address] [place], [address], 06/05/2019 09:08:33 06/04/1906/05/2019 CBC 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 Not Available [facility] ([facility]) [address] [place], [address], 06/05/2019 09:08:33 06/04/1906/05/2019 HIV 1+2 AB + HIV 1 p24 Ag, quali tativ e immun oassa y, serum HIV screen 4TH generation wrfx Non Reacti ve non reacti ve Not Available [facility] ([facility]) [address] [place], [address], 06/05/2019 09:08:34 06/04/19 20 06/05/2019 RPR (rapi d plasm a reagi n), serum RPR Non Reacti ve non reacti ve Not Available [facility] ([facility]) [address] [place], [address], 06/05/2019 09:08:35 06/04/19 20 06/06/2019 bacte rial vagin osis + vagin itis panel , vagin al chlamydia trachomatis, NA Negati ve negati ve Not Available [facility] ([facility]) [address] [place], [address], 06/09/2019 10:36:01 06/04/19 20 06/06/2019 bacte rial vagin osis + vagin itis panel , vagin al neisseria gonorrhoeae, NA Negati ve negati ve Not Available [facility] ([facility]) [address] [place], [address], 06/09/2019 10:36:01 06/04/19 20 2019 bacte rial vagin osis + vagin itis panel , vagin al trich vag by NA Negati ve negati ve Not Available [facility] ([facility]) [address] [place], [address], 06/09/2019 10:36:01 06/04/19 20 06/09/2019 bacte rial vagin osis + vagin itis panel , vagin al atopobium vaginae Low - 0 score Not Available [facility] ([facility]) [address] [place], [address], 06/09/2019 10:36:01 06/04/19 20 06/09/2019 bacte rial vagin osis + vagin itis panel , vagin al bvab 2 Low - 0 score Not Available [facility] ([facility]) [address] [place], [address], 06/09/2019 10:36:01 06/04/19 20 06/09/2019 bacte rial [...] is not neces ginny. Not Available [facility] ([facility]) [address] [place], [address], 06/09/2019 10:36:01 06/04/19 20 06/09/2019 bacte rial vagin osis + vagin itis panel , vagin al lala albicans, NA Negati ve negati ve Not Available [facility] ([facility]) [address] [place], [address], 06/09/2019 10:36:01 06/04/19 20 06/09/2019 bacte rial vagin osis + vagin itis panel , vagin al lala glabrata, NA Negati ve negati ve Not Available [facility] ([facility]) [address] [place], [address], 06/09/2019 10:36:01 06/04/19 20 06/08/2019 HSV (1+2) DNA, qual, PCR, unspe cifie d speci men hsv 1 NA Negati ve negati ve Not Available [facility] ([facility]) [address] [facility], [place], [address], 06/09/2019 10:36:02 06/04/19 20 06/08/2019 HSV (1+2) DNA, qual, PCR, unspe cifie d speci men hsv 2 NA Negati ve negati ve Not Available [facility] ([facility]) [address] [facility], [place], [address], 06/09/2019 10:36:02 06/04/19 20 06/06/2019 cultu re, vagin al/re ctal, strep tococ cus group B strep gp B NA Positi ve negati ve abnormal [facility] ([facility]) and Ameri can Congr ess of Obste [...] n is noted . Not Available [facility] ([facility]) [address] [facility], [place], [address], 06/09/2019 10:36:03 06/04/19 20 06/04/2019 urina lysis , dipst ick Leukocytes Negati ve Not Available In-Office Order Internal Use Only DO Not Attach Compendium DO Not Attach Compendium, Do Not Delete/merge, 06/04/2019 10:55:04 06/04/1906/04/2019 urina lysis , dipst ick Nitrite negati ve Not Available In-Office Order Internal Use Only DO Not Attach Compendium DO Not Attach Compendium, Do Not Delete/merge, 06/04/2019 10:55:06/04/19 20 06/04/2019 urina lysis , dipst ick Urobilinogen .2 Not Available In-Of fice Order Internal Use Only DO Not Attach Compendium DO Not Attach Compendium, Do Not Delete/merge, 06/04/2019 10:55:04 06/04/1906/04/2019 urina lysis , dipst ick Protein 30 Not Available In-Office Order Internal Use Only DO Not Attach Compendium DO Not Attach Compendium, Do Not Delete/merge, 06/04/2019 10:55:04 06/04/1906/04/2019 urina lysis , dipst ick pH 5.5 Not Available In-Office Order Internal Use Only DO Not Attach Compendium DO Not Attach Compendium, Do Not Delete/merge, 06/04/2019 10:55:04 06/04/1906/04/2019 urina lysis , dipst ick Blood Negati ve Not Available In-Office Order Internal Use Only DO Not Attach Compendium DO Not Attach Compendium, Do Not Delete/merge, 06/04/2019 10:55:06/04/1906/04/2019 urina lysis , dipst ick Specific Mobile 1.030 Not Available In-Off ice Order Internal Use Only DO Not Attach Compendium DO Not Attach Compendium, Do Not Delete/merge, 06/04/2019 10:55:06/04/1906/04/2019 urina lysis , dipst ick Ketone Negati ve Not Available In-Office Order Internal Use Only DO Not Attach Compendium DO Not Attach Compendium, Do Not Delete/merge, 06/04/2019 10:55:04 06/04/19 20 06/04/2019 urina lysis , dipst ick Bilirubin Negati ve Not Available In-Office Order Internal Use Only DO Not Attach Compendium DO Not Attach Compendium, Do Not Delete/merge, [id number] 06/04/2019 10:55:04 06/04/19 20 06/04/2019 urina lysis , dipst ick Glucose Negati ve Not Available In-Office Order Internal Use Only DO Not Attach Compendium DO Not Attach Compendium, Do Not Delete/merge, [id number] 06/04/2019 10:55:04 04/06/19 20 04/06/2019 imagi ng/di agnos tic resul t No observ ation record ed. [address] (Imaging) [address] [place], [address], 04/09/2019 13:52:07 05/29/19 20 05/29/2019 imagi ng/di agnos tic resul t No observ ation record ed. [address] (Imaging) [address] [place], [address], 06/04/2019 11:13:57 Result Notes None recorded. 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 Procedures Surgical History None recorded. Imaging Results Imaging Date Name Status LastModified by Organiz ation Details LastModified Time 04/06/2019 imaging/diag nostic result completed [address] (Imaging) [address] [place], [address], 04/09/2019 13:52:07 05/29/2019 imaging/diag nostic result completed [address] (Imaging) [address] [place], [address], 06/04/2019 11:13:57 Procedure Notes None recorded. Medical [...] chloé (28) 0.18 mg(7)/0.2 15 mg(7)/0.2 5 mg(7)-0.0 35 mg tablet Take 1 tablet every day by [...] 100 mm[Hg] 72 mm[Hg] Ely Merino MA [place] - [facility] 0 11:30:47 Date Recorded Body weight Provider Name an d Address Organization Details Last Updated DateTime 04/28/2019 87040.032256 g ANMOL MCINTOSH Attn: Accounting,[address] [place], [address], [facility] 06/09/2019 11:33:21 Date Recorded Body height Body [...] 110 mm[Hg] 66 mm[Hg] Ely Merino MA [facility] 0 11:09:05 Date Recorded Body weight Provider Name an d Address Organization Details Last Updated DateTime 05/07/2019 75246.7674 g ANMOL MCINTOSH Attn: Accounting,[address] [place], [address], [facility] 05/07/2019 14:33:02 Date Recorded Body height Body [...] 96 mm[Hg] 60 mm[Hg] Ely Merino MA [facility] 0 10:51:42 Date Recorded Body weight Heart rate Provider Name and Address Organization Details Last Updated DateTime 05/21/2019 44341.47011 g 116 /min ANMOL MCINTOSH Attn: Accounting,[address] [place], [address], [facility] 05/21/2019 11:07:20 Date Recorded Body height Body [...] 118 mm[Hg] 74 mm[Hg] Ely Merino MA [facility] 0 11:09:06 Date Recorded Body weight Provider Name an d Address Organization Details Last Updated DateTime 06/04/2019 82126.744152 g ANMOL MCINTOSH Attn: Accounting,[address] [place], [address], [facility] 06/04/2019 11:22:37 Date Recorded Body height Body mass index (BMI) Body mass index (BMI) Percentile per age and sex Body weight Provider Name and Address Organization Details Last Updated DateTime 06/11/2019 160.02 cm 33.5 kg/m2 96 % 79656.957 93 g Laurie Tinajero MA [facility] 06/11/2019 12:19:18 Date Recorded Systolic blood pressure Diastolic blood pressure Provider Name and Address Organization Details Last Updated DateTime 06/11/2019 120 mm[Hg] 76 mm[Hg] Amaury Askew [facility] 12:24:20 Social History Question Answer Notes LastModified by Organizat ion Details LastModified Time Tobacco Smoking Status Never Smoker Aundrea Johnson MA null, [facility] 08/13/2017 11:05:50 Do You Have An Advance [...] Information not available 08/13/2017 Marital Status Single sarahasserman Informatio n not available 06/11/2019 What Was [...] Clots N GI Problems N Acne N Eating Disorder N Breast Problem N Anemia N Anesthesia Complications N Headaches/Migraines N Anxiety Disorder N Ovarian Cancer N Diabetes N Muscle, Joint, or Bone Problems N Blood Transfusions N Seizures/Epilepsy N Infertility N Polyps N Acid Reflux (GERD) N Cancer N [...] MCINTOSH Attn: Accounting[address] , [place], [address], [place] - [facility] 04/23/2019 11:09:11 Past Encounters Encounter ID Performer Location Encounter Start Date Encounter Closed Date Diagnosis/Indication Diagnosis SNOMED-CT Code Diagnosis ICD10 Code Diagnosis Note [id number] LAILA Rao (MEDIA RELATIONS MANAGER) [address] [place] [id number] 08/13/2017 10:08:46 08/13/2017 11:24:22 Family planning surveillance 363917989 Z30.09 Counseled patient about different forms of [...] OCP's to prevent STD's. Gynecologi c examination 67153969 Z01.419 Age appropriat e counseling done. Venereal d isease screening 928883463 Z11.3 Patient refused blood work. [id number] ANMOL MCINTOSH (MEDIA RELATIONS MANAGER) [address] [place] [id number] 0 01/01/2019 11:07:37 01/02/2019 10:51:08 Routine care 568141762 Z34.90 Venereal d isease screening 583312164 Z11.3 screening 2437 86473 Z36.85 Morning sickness 8429655 6 O21.9 Pt given prescripti on for metoclopra mide by a different provider. Continue as needed. [id number] LAILA Casey (MEDIA RELATIONS MANAGER) [address] [place] [id number] 01/23/2019 15:46:09 01/26/2019 11:40:49 [id number] ANMOL MCINTOSH (MEDIA RELATIONS MANAGER) [address] [place] [id number] 01/29/2019 10:48:44 01/30/2019 11:05:17 Routine care 803572719 Z34.90 screening 2437 12537 Z36.1 Heterozygo us methylenetetrahydrofo late reductase mutation 8900069389 39571 E72.12 [id number] ANOML MCINTOSH (MEDIA RELATIONS MANAGER) [address] [place] [address] [id number] 02/26/2019 10:25:41 02/26/2019 11:33:58 Routine care 958572876 Z34.90 Heterozygo us methylenetetrahydrofo late reductase mutation 3553329554 25638 E72.12 B12 injections 02/26 [id number] ANMOL MCINTOSH (MEDIA RELATIONS MANAGER) [address] [place] [id number] 0 03/26/2019 10:48:57 03/26/2019 11:54:22 Routine care 033989182 Z34.82 screening 2437 10651 Z36.9 Heterozygo us methylenetetrahydrofo late reductase mutation 2470555537 10992 E72.12 B12 injections 02/26, 2/6 [id number] ANMOL MCINTOSH (MEDIA RELATIONS MANAGER) [address] [place] [id number] 04/09/2019 10:31:51 04/09/2019 11:22:44 Routine care 559271817 Z34.82 Heterozygo us methylenetetrahydrofo late reductase mutation 5549086758 58221 E72.12 B12 injections /, 2/6 Anemia of 2734 2004 O99.019 On iron supplement . Candidiasis of vagina 72 428232 B37.3 [id number] ANMOL MCINTOSH (MEDIA RELATIONS MANAGER) [address] [place] [address] [id number] 04/23/2019 10:04:17 04/27/2019 14:31:13 Routine care 920342435 Z34.82 Heterozygo us methylenetetrahydrofo late reductase mutation 1321940934 26162 E72.12 B12 injections 1/9, 2/6, 3/5 Anemia of 2734 2003 O99.019 On iron supplement . [id number] ANMOL MCINTOSH (MEDIA RELATIONS MANAGER) [address] [place] [id number] 0 04/28/2019 10:42:43 04/30/2019 16:18:57 Candidal vulvovaginitis 65484092 B37.3 Instructed to take medication as prescribed . Swab obtained for culture. Assess symptomati c resolution at [facility] f/u on 05/07/19. [id number] ANMOL MCINTOSH (MEDIA RELATIONS MANAGER) [address] [place] [address] [id number] 05/07/2019 10:35:34 05/07/2019 11:39:58 Routine care 856796999 Z34.82 Heterozygo us methylenetetrahydrofo late reductase mutation 7368733057 98724 E72.12 B12 injections 1/9, 2/6, 3/5 Anemia of 2734 2003 O99.019 On iron supplement . Recurrent candidiasis of vagina 281909381 B37.3 Completed second round of terconazol e tx 04/28/2019. Mild symptoms remain. Start fluconazol e as prescribed . [id number] ANMOL MCINTOSH (MEDIA RELATIONS MANAGER) [address] [place] [phone] 0 05/21/2019 10:00:31 05/26/2019 09:22:01 Routine care 408237931 Z34.82 Routine care. B12 injection given today. Repeat US to evaluate growth. Heterozygo us methylenetetrahydrofo late reductase mutation [id number] 42735 E72.12 B12 injections 1/9, 2/6, 3/5, 4/2 Anemia of 2734 2003 O99.019 On iron supplement . [id number] ANMOL MCINTOSH (MEDIA RELATIONS MANAGER) [address] [place] [phone] 0 06/04/2019 10:30:17 06/12/2019 09:09:17 Routine care 631547756 Z34.82 Routine care at 36w5d. Denies contractio ns, LOF. Cervix posterior and closed, mild effacement . GBS screening completed. US 05/28 with EFW 65.4%, ALONZO 14.10cm. Discussed delivery with patient and she wants to deliver at [place]. Will start seeing Dr. Askew weekly for cervix checks. screening 2437 23663 Z36.85 Venereal d isease screening 394115189 Z11.3 Heterozygo us methylenetetrahydrofo late reductase mutation [id number] 83398 E72.12 B12 injections 02/26, 03/26, /, 4/2 Anemia of 2734 2003 O99.019 On iron supplement . Recheck CBC today. [id number] Amaury Munoz (MEDIA RELATIONS MANAGER) [address] [place] [address] [phone] 06/11/2019 12:01:03 06/12/2019 15:32:27 Routine care 231228216 Z34.[address] reptococcus carrier 3548557231 103 Z22.330 Heterozygo us methylenetetrahydrofo late reductase mutation [id number] 68602 E72.12 heterozygo us for the MTHFR [id number] variant Family sveta ing surveillance 447609985 Z30.09 Health Concerns Section Related Observation LastModified by Organization Detai ls LastModified Time None Recorded Concern Status LastModified by Organization Details LastModified Time None Recorded Advance Directives Directive N: Payers Encounter Date Sequence Insurance Name Policy Number Policy Ariza Covered Member ID Ariza Member ID Guarantor Name 04/28/2019 1 [place] [id number] Robel Franks [id number] Heidi Whitehead 05/07/2019 1 [place] [id number] Robel Franks [id number] Heidi Whitehead 05/21/2019 1 [place] [id number] Robel Franks [id number] Heidi Whitehead 06/04/2019 1 [place] [id number] Robel Franks [id number] Heidi Whitehead 06/11/2019 1 [place] [id number] Robel Franks [id number] Heidi Whitehead Notes Date Note Type Note [...] during visit ANMOL MCINTOSH Attn: Accounting,[address] [place], [address], [facility] 04/30/2019 13:46:36 05/07/2019 text/html OB ProblemReport ed [...] symptoms, constipation. ANMOL MCINTOSH Attn: Accounting,[address] [place], [address], [facility] 05/07/2019 16:01:54 05/21/2019 text/html OB ProblemReport ed [...] symptoms, constipation. ANMOL MCINTOSH Attn: Accounting,[address] [place], [address], [facility] 05/25/2019 14:11:50 06/04/2019 text/html OB ProblemReport ed [...] symptoms, constipation. ANMOL MCINTOSH Attn: Accounting,[address] [place], [address], [facility] 06/04/2019 13:36:28 06/11/2019 text/html OB ProblemReport ed [...] symptoms, constipation. Amaury Askew [place], [place] - [facility] 06/11/2019 12:36:26 OBGyn Episode Ob Episode Information Episode Created Date Number of Fetuses Patient Bloodtype Patient rh Status Prepregnancy Weight lbs Domestic Partner Domestic Partner Phone Father Name Bioinformatics Specialist Status 01/02/20 19 1 B Positive CLOSED Fetus Data First Name Last Name Admitted to NICU Weight (g) Sex Living Outcome Pediatric Complications Fetus ID Race Codes Race Delivery Type [id number] Problems Problem Notes NCB NO EPIDURAL, p ediatrician undecided, Botlle. 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 Keshav Calculation Initial Keshav Date Initial [...] 01/13/20 19 16 01/19/2019 06/27/19 20 2 Pre- Flowsheet Flowsheet Date 01/01/2019 Madrid Score Blood Edema Fundus Height Fundus Units Glucose Ketones Leukocytes Nitrite Labor Signs Protein Cervic Dilation Cervic Effacement Cervic Station neg none 13 wks none negative trace Type Weight in lbs Pre/Post Dialysis Refused Weight 124.316194965423 BP Diastolic BP Location Tested BP Systolic [...] Weight in lbs Pre/Post Dialysis Refused Weight 133.981604430947 BP Diastolic BP Location Tested BP Systolic [...] Weight in lbs Pre/Post Dialysis Refused Weight 144.091192800029 BP Diastolic BP Location Tested BP Systolic [...] Weight in lbs Pre/Post Dialysis Refused Weight 158.022926050924 BP Diastolic BP Location Tested BP Systolic [...] in lbs Pre/Post Dialysis Refused With clothes 161.776655240662 BP Diastolic BP Location Tested BP Systolic [...] Weight in lbs Pre/Post Dialysis Refused Weight 165.099949315304 BP Diastolic BP Location Tested BP Systolic BP Type 68 98 sitting Fetus Heart Rate Present A 136 Present Fetus Movement A Yes Comments Tdap and B-12 injection toda y. Flowsheet Date 04/28/2019 Madrid Score Blood Edema Fundus Height Fundus Units Glucose Ketones Leukocytes Nitrite Labor Signs Protein Cervic Dilation Cervic Effacement Cervic Station Type Weight in lbs Pre/Post Dialysis Refused Weight 168.877642875797 BP Diastolic BP Location Tested BP Systolic BP Type 72 100 sitting Fetus Heart Rate Present Fetus Movement Comments Flowsheet Date 05/07/2019 Madrid Score Blood Edema Fundus Height Fundus Units Glucose Ketones Leukocytes Nitrite Labor Signs Protein Cervic Dilation Cervic Effacement Cervic Station trace none 32 cm none negative none trace Type Weight in lbs Pre/Post Dialysis Refused Weight 173.977226060756 BP Diastolic BP Location Tested BP Systolic [...] Weight in lbs Pre/Post Dialysis Refused Weight 180.004086667759 BP Diastolic BP Location Tested BP Systolic [...] Weight in lbs Pre/Post Dialysis Refused Weight 185.583933452754 BP Diastolic BP Location Tested BP Systolic BP Type 74 118 sitting Fetus Heart Rate Present A 143 Present Fetus Movement A Yes Comments Routine care at 36w 5d. Denies contractions, LOF. Cervix posterior and closed, mild effacement. GBS screening completed. US 05/28 with EFW 65.4%, ALONZO 14.10cm. Discussed delivery with patient and she wants to deliver at [place]. Will start seeing Dr. Askew weekly until. Flowsheet Date 06/11/2019 Madrid Score Blood Edema Fundus Height Fundus Units Glucose Ketones Leukocytes Nitrite Labor Signs Protein Cervic Dilation Cervic Effacement Cervic Station neg none 36 cm none negative none neg 0cm 0% - 4 Type Weight in lbs Pre/Post Dialysis Refused With clothes 189.503168312055 BP Diastolic BP Location Tested BP Systolic BP Type 76 120 sitting Fetus Heart Rate Present A 144 Present Fetus Movement A Yes Comments wtc/wlb/ see [facility] next week d el at [place] Menstrual History Last Menstrual Date Menses Monthly On Bcp Conception Prior Menses Frequency Hcg Plus Date Menarche Onset Age 0809/25/2018 true false Genetic Screening And Infection History Question Response Note Patient's Age Will Be 35 Yea rs Or Older At Estimated Date of Delivery false Thalassemia (Romanian, Ghanaian, Mediterranean, Or Background): MCV < 80 false Neural Tube Defect (Meningomyelocele, Spina Bifi da, Or Anencephaly) false Congenital Heart Defect false Down Syndrome false Alexey-Sachs (eg, Restoration, Cajun, Bulgarian-Sanborn) f alse Javier Disease false Sickle Cell Disease Or Trait () false Hemophilia Or Other Blood Disorders false Muscular Dystrophy false Cystic Fibrosis false Fallon's Chorea false Mental Retardation/Autism true damion dillard [...] Anticipated course o f care discussed at [facility] 01/23/2019 Nutrition counseling ; special diet; dietary precautions (mercury, listeriosis) discussed at [facility] 01/23/2019 Childbirth classes/h ospital facilities discussed at [facility] 01/23/2019 HIV and other routin e tests discussed at [facility] 01/23/2019 Exercise discussed at [facility] 01/23/2019 06/11/2019 Bottl e feed, [facility] 01/23/2019 Dental care discussed at [facility] 01/23/2019 Travel discussed at [facility] 01/23/2019 Seat belt use discussed at [facility] a Second Trimester Discussed Date Discussion Item Discussion Note Discuss ed By 01/23/2019 Selecting a care provider PEDS undecided, [facility] 01/23/2019 family planning/tubal sterilization 06/11/2019 PPbcp, [facility] 01/29/2019 Depression screening (when indicated) [place] [id number] 01/29/2019 [facility] 01[facility]29[facility]2019 Signs and symptoms o f labor 01/29/2019 Intimate partner violence [email or web address] 01/29/2019 Tobacco/smoking cess ation counseling (ask, advise, assess, assist, and arrange) [place] [id number] Third Trimester Discussed Date Discussion Item Discussion Note Discuss ed By 04/24/2019 Intimate partner violence [email or web address] 01/23/2019 Anesthesia plans NCB NO EPIDURAL, [facility] 04/24/2019 Aspen education (n ewborn screening, jaundice, SIDS/safe sleeping position, car seat) [facility] 01/23/2019 Circumcision 06/11/2019 baby girl, [place], yes to circ if boy, [facility] 04/24/2019 Postterm counseling [facility] ssi1 03/27/2019 movement monitoring given kick coun ts msimpsonma 01/23/2019 06/11/2019 Bottle, [facility] 04/24/2019 Labor signs 04/24/2019 depression jcorto [email or web address] 04/24/2019 Family medical leave or disability forms [facility] 04/24/2019 Tobacco/smoking cess ation counseling (ask, advise, [...]
[2024-05-21 18:33] LABS: Beta HCG Quantitative < 2.39 mIU/ML
== END 2024-05-21 17:29 | disposition home or self-care (01) ==
LOC: ANHLAB 17:30
PROVIDERS: Visit Provider Obstetrics & Gynecology
DX: Z30.430 Encounter for insertion of intrauterine contraceptive device (principal)
CPT/HCPCS: 36415; 84702

== ENCOUNTER 2024-10-12 15:40 | Emergency (ER) | payer BC, SELFPAY ==
--- OUTSIDE RECORDS SUMMARY | 2004-06-30 19:00 | XMS_ITS | Continuity of Care Document ---
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 [address], [address], [place], [place], [address], [place]. tel:[phone] Family History Family Member Type Diagnosis Age At Onset No Information Immunizations Vaccine Date Status Comments 94667 - DTaP_DTP_DT_PEDS administered Britney rce: Source Unspecified 92402 - MMR administered Source: Source Unspecified 93426 - Polio_OPV_IPV administered Source : Source Unspecified 06940 - Hepatitis_A administered Source: Source Unspecified Payers Payer name Insurance type Covered republican ID Authoriza tion(s) No Information Social History Type Description Quantity Date Captured Comments Sex Female Smoking Status No Information Chief Complaint And Reason For Visit No Information Reason For Referral Reason For Referral No Information History Of Present Illness Encounter Date Complaint History Of Prese nt Illness No Information Functional Status Date Functional Assessmen t No Information Instructions Date Instruction Additional Infor mation No Information Assessments Type Assessment Date No Information Patient Care Teams Name Effective Dates (start - stop) Status Members No Information
--- OUTSIDE RECORDS SUMMARY | 2004-06-30 19:00 | XMS_ITS | Continuity of Care Document ---
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 [address], [address], [place], [place], [address], [place]. tel:[phone] Family History Family Member Type Diagnosis Age At Onset No Information Immunizations Vaccine Date Status Comments 47397 - DTaP_DTP_DT_PEDS administered Britney rce: Source Unspecified 36800 - MMR administered Source: Source Unspecified 63056 - Polio_OPV_IPV administered Source : Source Unspecified 73061 - Hepatitis_A administered Source: Source Unspecified Payers Payer name Insurance type Covered green party ID Authoriza tion(s) No Information Social History [...]
--- OUTSIDE RECORDS SUMMARY | 2024-10-12 15:43 | XMS_ITS | Encounter Summary ---
Author Organization [facility] Address [facility] [place] [address] Care Team Providers Care [employer] Principal Name Role Phone None, Provider Primary Care Provider Amya ble Encounter Details Date Type Department Care Team (Late st Contact Info) Description 07/12/2021 [facility] Message Enc [facility] Orthopedic & Sports Medicine - [place] [address] [place], [place] [id number] [phone] Joshua Osborn MD [address] [place], [place] [address] 119- Hand/ wrist Social History Tobacco Use Types [...] as of this encounter Plan of Treatment Upcoming Encounters Date Type Department Care Team (Latest Contact Info) Description 10/28/2024 10:35 AM CDT Hospital Encounter [facility] [place] [address] Joshua Osborn MD [address] [place] [address] 10/28/2024 10:35 AM CDT - 10/28/2024 12:[address] [place] [address] Joshua Osborn MD [address] [place] [address] right wrist diagnostic arthroscopy with debridement and repair of triangular fibrocartilage complex ligament 11/03/2024 10:00 AM CDT Office Visit [facility] - [place] [address] [place] [address] Joshua Osborn MD [address] [place] [address] Scheduled Procedures Name Priority Associated Diagnoses Date/Ti me ARTHROSCOPY WRIST Injury of triangular fibrocartilage complex (TFCC) of right wrist, initial encounter 10/28/2024 10:35 AM CDT documented as of this encounter Visit Diagnoses Not on filedocumented in this encounter Care Teams [employer] Principal Relationship Specialty Start Date End Date None, Provider, PCP - General 10/29/18 documented as of this encounter
--- OUTSIDE RECORDS SUMMARY | 2024-10-12 15:43 | XMS_ITS | Clinical Summary ---
Author Organization [facility] Address [address] [place] [address] Care Team Providers Care Casing Man Name Role Phone None, Provider MD Primary Care Provider Unavaila ble Allergies No known active allergies Medications IBUPROFEN OR Active Iron, Ferrous Sulfate, 325 (65 Fe) MG Tab Take 1 tablet every day by oral route. Active fluconazole (DIFLUCAN) 150 MG tablet Take 1 tablet (150 mg total) by mouth once. Active folic acid (FOLVITE) 1 MG tablet Take 4 tablets every day by oral route. Active metoclopramide (REGLAN) 10 MG tablet Active nystatin (MYCOSTATIN) cream APPLY TO THE AFFECTED AREA(S) BY TOPICAL ROUTE 2 TIMES PER DAY Active progesterone (PROMETRIUM) 200 MG capsule Take 1 capsule twice a day by oral route. Active sertraline (ZOLOFT) 50 MG tablet Take 1 tablet (50 mg total) by mouth daily. Active terconazole (TERAZOL 7) 0.4 % vaginal cream Insert 1 applicatorful every day by vaginal route at bedtime for 7 days. Active XULANE 150-35 MCG/24HR packet APPLY 1 PATCH TRANSDERMALLY ONE DAY A WEEK FOR 3 WEEKS OF A 4 WEEK CYCLE. Active Active Problems Problem Noted Date Diagnosed Date Injury of triangular fibroca rtilage complex (TFCC) of right wrist, initial encounter 10/02/2024 Encounters Date Type Department Care Team Description 10/02/2024 Prep for Procedure [facility] Orthopedic & Sports Medicine - [place] [address] Joshua Osborn MD 10/01/2024 2:40 PM CDT Office Visit [facility] Orthopedic & Sports [facility] [address] [place] [address] Joshua Osborn MD Follow Up (Right tfcc ) 10/01/2024 Travel 08/17/2024 11:45 AM CDT Office Visit [facility] Occupational Therapy [address] [place] [address] Joshua Osborn MD Pratt, Robin M, OTR Wrist Pain 08/17/2024 Travel 08/10/2024 10:00 AM CDT Office Visit [facility] Orthopedic & Sports [facility] [address] [place] [address] Joshua Osborn MD Follow Up (Right wrist tfcc) 08/10/2024 Travel from Last 3 Months Immunizations Immunization Administration Dates Next Due Dtap (Acel-Immune) 10/02/2004, 5,11/18/2000,11/19,1999,1999 Hepatitis B Pediatric 1999,1999,05/19 Hib (Generic) 11/18/2000,1999,1999 Influenza (Generic) 02/01/2003 MENINGOCOCCAL A C Y&W-135 oligosaccharide (MENVEO) 09/25/2016 MMR (MMRII) 10/02/2004,04/20/2004,11/18/2000 Pneumococcal (Prevnar 7) 11/18/2000,02/19,1999,09/19 Polio IPV (Ipol) 10/02/2004, 5,11/18/2000,09/19,1999 Tdap (Generic) 06/25/2019,04/23/2019,06/01/2010 Varicella (Varivax) 11/18/2000 Family History Medical History Relation Comments Asthma Father Cancer Neg Hx Diabetes Neg Hx Kidney Disease Neg Hx Relation Status Comments Father Alive Social History Tobacco Use Types Packs/Day Years Used Date Smoking Tobacco: Never Smokeless Tobacco: Never Tobacco Cessation:Counseling Given: No Comments:Never Smoked Alcohol Use Standard Drinks/Week Comments Yes 1 (1 standard drink = 0.6 oz pur e alcohol) Occasionally AUDIT-C Answer Date Recorded Frequency of Alcohol Consumption Never 10/29/2018 Average Number of Drinks Not on file 019 Frequency of Binge Drinking Not on file 10/19 PHQ-2 Answer Date Recorded Patient Health Questionnaire-2 Score 0 06/29/2024 Comments No Sex and Gender Information Value Date Recorded Sex Assigned at Not on file Legal Sex Female 6:35 PM CDT Gender Identity Not on file Sexual Orientation Not on file Last Filed Vital Signs Vital Sign Reading Time Taken Comments Blood Pressure 98/59 10/01/2024 2:53 PM CDT Pulse 63 10/01/2024 2:53 PM CDT Temperature 36.9 C (98.5 F) 10/01/2024 2:53 PM CDT Respiratory Rate 18 07/06/2021 10:09 AM CDT Oxygen Saturation 100% 07/06/2021 10:09 AM CDT Inhaled Oxygen Concentration - - Weight 80.7 kg (178 lb) 10/01/2024 2:53 PM CDT Height 162.6 cm (5' 4) 10/01/2024 2:53 PM CDT Body Mass Index 30.55 10/01/2024 2:53 PM CDT Plan of Treatment Upcoming Encounters Date Type Department Care Team (Latest Contact Info) Description 10/28/2024 10:35 AM CDT Hospital Encounter [facility] [place] [address] Joshua Osborn MD [address] [place], [place] [phone]- 10/28/2024 10:35 AM CDT - 10/28/2024 12:24 PM CDT Surgery [facility] [place], [place] [address] Joshua Osborn MD [address] [place] [address] right wrist diagnostic arthroscopy with debridement and repair of triangular fibrocartilage complex ligament 11/03/2024 10:00 AM CDT Office Visit [facility] Orthopedic [facility] Medicine - [place] [address] [place] [address] Joshua Osborn MD [address] [place] [address] Scheduled Procedures Name Priority Associated Diagnoses Date/Ti me ARTHROSCOPY WRIST Injury of triangular fibrocartilage complex (TFCC) of right wrist, initial encounter 10/28/2024 10:35 AM CDT Health Maintenance Due Date Last Done Comments Annual Physical 06/06/2002 HPV Vaccines (1 - 3-dose series) 06/06/2014 Hepatitis C 06/06/2017 Cervical Cancer Screening Pap Smear (Age 21 to 29) Every 3 Years 05/14/2021 05/14/2018 Cervical Cancer Screening 05/14/2021 COVID-19 Vaccine ( season) 2023 DTaP, Tdap and Td Vaccines (9 - Td or Tdap) 06/24/2029 06/25/2019, 04/23/2019, 06/01/2010, Additional history exists Hepatitis B Vaccines Completed 1999, 1999, 1999 Pneumococcal Vaccine: Pediatrics (0 to 5 Years) and At-Risk Patients (6 to 49 Years) Aged Out 11/18/2000, 03/13/2000, 1999, Additional history exists No longer eligible based on patient's age to complete this topic Meningococcal Vaccine Completed 09/25/2016 PHQ-2 (Physician [place]) Completed 06/29/2024 Meningococcal B Vaccine Aged Out No l onger eligible based on patient's age to complete this topic RSV Immunizations Under 20 Months Aged Out No longer eligible based on patient's age to complete this topic Goals Goal Patient Goal Type Associated Problems Recent Progress Patient-Stated? Author Autogenerat ed Goal Care Plan Autogenerated Problem No Vicky Hanley RN Additional Health Concerns Active Problems Noted Date Diagnosed Date Autogenerated Problem 10/02/2024 Insurance [facility] Care Teams Casing Man Relationship Specialty Start Date End Date None, Provider, PCP - General 10/29/18
--- OUTSIDE RECORDS SUMMARY | 2024-10-12 15:43 | XMS_ITS | Clinical Summary ---
Author Organization [facility] [address] Address [address] [place] [address] [address] [place] [address] Care Team Providers Care Machine Farmworker Name Role Phone Akbar Ureña MD Unavailable [phone] Tyree Martínez MD Primary Care Provider [phone] Allergies No known active allergies Medications sertraline (ZOLOFT) 50 mg tablet Take 1 tablet (50 mg total) by mouth daily 03/16/2024 Active progesterone (PROMETRIUM) 200 mg capsule Take 1 capsule twice a day by oral route. Active nystatin cream APPLY TO THE AFFECTED AREA(S) BY TOPICAL ROUTE 2 TIMES PER DAY Active metoclopramide (REGLAN) 10 mg tablet Active folic acid (FOLVITE) 1 mg tablet Take 4 tablets every day by oral route. Active ferrous sulfate 325 mg (65 mg of elemental iron) tablet Take 1 tablet every day by oral route. Active calcium carbonate-vitam in D3 1,500 mg (600 mg elemental)-400 unit capsule Take 1 capsule twice a day by oral route. 01/01/2019 Active aspirin (Gaurang Low Dose Aspirin) 81 mg enteric coated tablet Take 1 tablet every day by oral route. 01/17/2019 Active Active Problems Problem Noted Date Diagnosed [...] risks vs benefits. Return in 1 year Encounters Date Type Department Care Team Description 08/14/2024 7:15 PM CDT Office [facility] Convenient Care at [address] [address] Shwetha Garcia, JESSICA Ingrown right greater toenail (Primary Dx) 07/24/2024 Results Follow-Up [facility] Care at [address] [address] Adarsh Reyes NP Throat culture Throat 07/22/2024 4:05 PM CDT - 07/22/2024 11:59 PM CDT Hospital Encounter [address] [address] Tonsillitis Discharge Disposition: Discharge to home or self care 07/22/2024 12:00 PM CDT Office Visit [facility] Care at [address] [address] [place] Tonsillitis (Primary Dx) from Last 3 Months Immunizations Immunization Administration Dates Next Due DTaP [...] staff should administer the PHQ-9) 6 08/06/2023 PHQ-9 Answer Date Recorded PHQ-9 Total Score 24 08/06/2023 Comments Unknown Sex and Gender Information Value Date Recorded Sex Assigned at Not on file Legal Sex Female 2:21 AM LABOR EMPLOYMENT ASSOCIATE Gender Identity Not on file Sexual Orientation Not on file 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 Not on file Not on file Obstetrics History Last Filed Vital Signs Vital Sign Reading Time Taken Comments Blood Pressure 97/65 08/14/2024 7:11 PM CDT Pulse 92 08/14/2024 7:11 PM CDT Temperature 36.8 C (98.3 F) 08/14/2024 7:11 PM CDT Respiratory Rate 20 08/14/2024 7:11 PM CDT Oxygen Saturation 98% 08/14/2024 7:11 PM CDT Inhaled Oxygen Concentration - - Weight 78.5 kg (173 lb) 08/14/2024 7:11 PM CDT Height 162.6 cm (5' 4.02) 07/22/2024 11:47 AM C DT Body Mass Index 29.68 07/22/2024 11:47 AM CDT Plan of Treatment Health Maintenance Due Date Last Done Comments Cervical Cancer Screening 1999 Varicella Vaccines (2 of 2 - 2-dose childhood series) 10/30/2004 11/18/2000 HPV Vaccines (1 - 3-dose series) 06/06/2014 Depression Screening 08/05/2024 08/06/2023, 08/06/19 24 Regular Well Visit/Exam 18-64 08/05/2024 08/06/2023 Influenza Vaccine (#1) 2024 02/01/2003 DTaP/Tdap/Td Vaccine (9 - Td or Tdap) 06/24/2029 06/25/2019, 04/23/2019, 06/01/2010, Additional history exists Hepatitis B Screening Completed 1999 , 1999, 1999 Pneumococcal vaccine <65 Completed 001, 03/13/2000, 1999, Additional history exists Hepatitis C Screening Completed 08/06/2023 Procedures Procedure Name Priority Date/Time Associated Diagnosis Comments THROAT CULTURE Routine 07/22/2024 4:05 PM CDT Tonsillitis POCT RAPID STREP Routine 07/22/2024 12:1 2 PM CDT Tonsillitis HEPATITIS C ANTIBODY Routine 08/06/2023 1:31 PM CDT Need for hepatitis C screening test from Last 3 Months or Most Recently Relevant to Health Maintenance Results * Throat culture Throat (07/22/2024 4:05 PM CDT) Report Final Report: No growth of pathogens. Comment:Testing performed by : [facility], [address] [facility] [place]., [address] Throat 07/22/2024 4:05 PM CDT 07/23/2024 5:50 AM CDT Narrative MAXIM VILLAGOMEZ - 07/24/2024 6:11 AM CDT Testing performed by [facility] ([phone]). us [facility] - GENER AL ORDERABLES Final Result MAXIM VILLAGOMEZ [address] Department [place] [address] * POCT rapid strep A (07/22/2024 12:12 PM CDT) Pathologist [facility] Rapid Strep A, POC Negative Negative Swab 07/22/2024 12:1 2 PM CDT Shwetha Garcia NP POINT OF CARE TEST ORDERAB LES Final Result * Hepatitis C antibody Blood (08/06/2023 1:31 PM CDT) Pathologist [facility] Hep C Ab Nonreactive Nonreactive Comment: Interpretive [...] GENERAL ORDERABLES Final Result Performing Organization Address City/State/[facility] Co de Phone Number MAXIM [phone] [address] Department [place] [address] from Last 3 Months or Most Recently Relevant to Health Maintenance Insurance [facility] CHOICE OOS Care Teams Machine Farmworker Relationship Specialty Start Date End Date Tyree Martínez MD [address] [facility] [address] [place] [address] PCP - General Family Medicine 08/06/23 Akbar Ureña MD [address] [place] [address] Referring Physician Obstetrics and Gynecology 08/06/23
--- OUTSIDE RECORDS SUMMARY | 2024-10-12 15:43 | XMS_ITS | Clinical Summary ---
Author Organization [facility] Address [address] [place] [address] Care Team Providers Care Tube Cleaning Operator Name Role Phone Unavailable Primary Care Provider Unavailabl e Source Comments [facility],non-owned Affiliates and Associated Physician Practices is amultiple site organization consisting of ambulatory clinics and hospital sitesin [place], [place], [place] and [place]. This disclosure is being madepursuant to the Care Everywhere program and may not contain all information available regarding this patient. Last updated 17.[facility] Allergies No known active allergies Medications * Be aware that medications may not be up to date on this document. Alwaysverify current medications with the patient. TRI-SPRINTEC tablet 9 Active norgestim-eth estrad triphasic (TRI-SPRINTEC) tablet Take 1 tablet by mouth once daily 3 packet 4 9 Active Additional Information Patient not taking.Reported on 12/02/2023 ferrous gluconate 324 (38 Fe) MG tablet Take 1 (one) tablet by mouth once daily Active Vit-Fe Fumarate-FA ( vitamin) 28-0.8 MG tablet Take 1 (one) tablet by mouth once daily Active Active Problems No known active problems Immunizations Immunization Administration Dates Next Due DTaP VACCINE IM [...] Recorded Patient Health Questionnaire-2 Score 0 12/02/2023 Comments No Sex and Gender Information Value Date Recorded Sex Assigned at Not on file Legal Sex Female 4:22 PM 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 DIRECTOR Gender Identity Not on file Sexual Orientation [...] 11:16 AM CDT Height 160 cm (5' 3) 12/02/2023 11:16 AM CDT Body Mass Index 26.57 12/02/2023 11:16 AM CDT Plan of Treatment Health Maintenance Due Date Last Done Comments HIV SCREENING 06/06/2014 HPV VACCINE (1 - 3-dose series) 06/06/2014 HEPATITIS C SCREENING 06/02/2017 CHLAMYDIA/GONORRHEA SCREENING 05/15/2019 05/14/2018 PAP SMEAR 06/06/2020 COVID-19 VACCINE (2023- season) 2023 DEPRESSION SCREENING 02/19/2024 12/02/2023 INFLUENZA VACCINE (#1) 2024 02/01/2003 DTAP/TDAP/TD VACCINES (9 - Td [...] on patient's age to complete this topic Procedures Procedure Name Priority Date/Time Associated Diagnosis Comments CHLAMYDIA + GC AMPLIFIED PROBE Routine 05/14/2018 9:31 AM CDT Encntr for associate application developer exam (general) (routine) w/o abn findings from Last 3 Months or Most Recently Relevant to Health Maintenance Results * CHLAMYDIA + GC AMPLIFIED PROBE (05/14/2018 9:31 AM CDT) Chlamydia NA Urine Negative Negative [facility] ACCOUNT BILL GC NA Urine Negative Negative [facility] ACCOUNT BILL Microbiology ENTIRE ENDOCERVIX / Unknown 05/14/2018 9:31 AM CDT 05/14/2018 Narrative Resulting Agency Comment [facility] [address] [place] [phone] [place] Aylin Odom MD LAB - MICROBIOLOGY ORDERABL ES Final Result [facility] ACCOUNT BILL [id number] [place] [address] from Last 3 Months or Most Recently Relevant to Health Maintenance Insurance
--- OUTSIDE RECORDS SUMMARY | 2024-10-12 15:43 | XMS_ITS | Encounter Summary ---
Author Organization [facility] Address [facility] [place] [address] Care Team Providers Care Petrographer Name Role Phone None, Provider Primary Care Provider Amya ble Encounter Details Date Type Department Care Team (Late st Contact Info) Description 10/17/2021 Qwiqqt Message Enc [facility] Medical Group Orthopedic & Sports Medicine - [place] [address] [place] [address] [phone] Joshua Osborn MD [address] [place], [place] [address] 765- The Surgery Social History Tobacco Use Types [...] Encounter [facility] [place] [address] Joshua Osborn MD [address] [place] [address] 10/28/2024 10:35 AM CDT - 10/28/2024 12:[address] [place] [address] Joshua Osborn MD [address] [place] [address] right wrist diagnostic arthroscopy with debridement and repair of triangular fibrocartilage complex ligament 11/03/2024 10:00 AM CDT Office Visit [facility] Medical Group Orthopedic & Sports Medicine - [place] [address] [place] [address] Joshua Osborn MD [address] [place] [address] Scheduled Procedures Name Priority Associated Diagnoses Date/Ti me ARTHROSCOPY WRIST Injury of triangular fibrocartilage complex (TFCC) of right wrist, initial encounter 10/28/2024 10:35 AM CDT documented as of this encounter Visit Diagnoses Not on filedocumented in this encounter Care Teams Petrographer Relationship Specialty Start Date End Date None, Provider, PCP - General 10/29/18 documented as of this encounter
[2024-10-12 15:52] VITALS: BP 132/76; PULSE 78; RESP 18; TEMP 36.9; O2SAT 100
--- NOTE | 2024-10-12 17:07 | ED_ITS ---
HPI - Extremity Problem General Chief complaint: Extremity Problem,Nontraumatic Stated complaint: ingrown R great toenail Time Seen by Provider: 10/12/24 16:57 History of Present Illness HPI Narrative: 24-year-old female presents ER complaining of right great toe pain. Patient states that she trimmed her toenails recently and may have cut too much to the nail off. Reports increased pain around the nail fold with purulent drainage. Denies fevers. Related Data Allergies Allergy/AdvReac Type Severity Reaction Status Date / Time No Known Allergies Allergy Verified 08/17/24 14:36 Review of Systems Review of Systems: All systems reviewed & are unremarkable except as noted in HPI and below PMFSH Past Medical History Medical History (Updated 10/12/24 @ 17:13 by Kiko Reyes APRN) Encounter for IUD removal Encounter for insertion of mirena IUD Encounter for screening examination for sexually transmitted disease Anxiety and depression Obesity and not yet delivered Suppression of menstruation Healthy female adult Surgical History Surgical History No history of previous surgery Family History Family History Other No problems noted. Grandparent Cancer Diabetes mellitus Sibling Autism Social History Social History Smoking status: Never smoker Second hand tobacco smoke exposure: No Alcohol intake: never Substance use: never Substance use type: does not use Do You Feel Safe in your Home?: Yes Lack of Transportation: No Lack of Food: Sometimes True Current Housing: I Have Housing Concerned About Future Housing: No Difficulty Paying Gas/Electric Bills: No Difficulty Paying for Meds: No Currently Unemployed: No Education: High School Diploma/GED Difficulty w/ Childcare or Family Care: No Living arrangements: other Additional living arrangements comments: single Occupation/Education: occupation Additional occupation/education comments: [employer] Gender identity (if verbalized by the patient): Female Sexual Orientation (if Verbalized by the Patient): Straight or Heterosexual Spiritual care concerns: No Exam Const: General: healthy appearing, no acute distress and alert Nutritional Appearance: well nourished and obese Orientation/consciousness: patient oriented x3 Limitations: no limitations Chest: Chest palpation & inspection: normal inspection of the chest Resp: Effort & Inspection: normal respiratory effort Auscultation: clear to auscultation bilaterally Cardio: Rate: regular rate Rhythm: regular rhythm Skin: General skin exam: normal color Other: right great toe: paronychia noted Neuro: General: patient oriented x3, moves all extremities and CN's II-XI intact bilaterally Cranial nerves: Yes Nystagmus not present Speech: normal speech Gait exam (Neuro): Normal gait present Extrem: General: normal to inspection Psych: Mental Status: mental status grossly normal Affect: normal affect Attitude: cooperative Course Vital Signs Vital signs: Vital Signs Temperature 36.9 C 10/12/24 15:52 Pulse Rate 78 10/12/24 15:52 Respiratory Rate 18 10/12/24 15:52 Blood Pressure 132/76 10/12/24 15:52 Pulse Oximetry 100 10/12/24 15:52 Oxygen Delivery Room Air 10/12/24 15:52 Temperature 36.9 C 10/12/24 15:52 Pulse Rate 78 10/12/24 15:52 Respiratory Rate 18 10/12/24 15:52 Blood Pressure 132/76 10/12/24 15:52 Pulse Oximetry 100 10/12/24 15:52 Oxygen Delivery Room Air 10/12/24 15:52 Discharge Plan Discharge Clinical Impression: Paronychia due to ingrown nail Patient Disposition: Home Condition: Stable Instructions: Antibiotic Form, Paronychia (ED) Patient Language: Nepali Prescriptions: New cephalexin 500 mg capsule 500 mg PO Q8H Qty: 21 0RF No Action norelgestromin-ethin.estradiol [Xulane] 150-35 mcg/24 hr patch weekly 1 patch transdermal WEEKLY Qty: 3 3RF Rx Instructions: apply once weekly for 3 weeks of a 4-week cycle Follow-up/Referrals: Paul Varma Jr., DPM [Physician, Podiatry] UNKNOWN,DOCTOR [Primary Care Provider] Time of Disposition: 17:14
--- OUTSIDE RECORDS SUMMARY | 2024-10-12 17:19 | XMS_ITS | Clinical Summary ---
Author Organization [facility] [address] Address [address] [place] [address] [address] [place] [address] Care Team Providers Care Deputy Sheriff Generalist Name Role Phone Akbar Ureña MD Unavailable [phone] Tyree Martínez MD Primary Care Provider [phone] Allergies No known active allergies Medications sertraline [...] Description 08/14/2024 7:15 PM CDT Office Visit [facility] Convenient Care at [address] [address] Shwetha Garcia, JESSICA Ingrown right greater toenail (Primary Dx) 07/24/2024 Results Follow-Up [facility] Care at [address] [address] Adarsh Reyes NP Throat culture Throat 07/22/2024 4:05 PM CDT - 07/22/2024 11:59 PM CDT Hospital Encounter [address] [address] Tonsillitis Discharge Disposition: Discharge to home or self care 07/22/2024 12:00 PM CDT Office Visit [facility] Care at [address] [address] [place] Tonsillitis (Primary Dx) from [...] on file Legal Sex Female 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 Comment:Testing performed by : [facility], [address] [place]., [address] Throat 07/22/2024 4:05 PM CDT 07/23/2024 5:50 AM CDT Narrative [facility] - 07/24/2024 6:11 AM CDT Testing performed by [facility] Microbiology Laboratory ([phone]). us [place] [facility] MICROBIOLOGY - GENER AL ORDERABLES Final Result [facility] [address] Department [place] [address] * POCT rapid strep A (07/22/2024 12:12 PM CDT) Pathologist [facility] Rapid Strep A, POC Negative Negative Swab 07/22/2024 12:1 2 PM CDT Shwetha Garcia NP POINT OF CARE TEST ORDERAB LES Final Result * Hepatitis C antibody Blood (08/06/2023 1:31 PM CDT) Pathologist [facility] Hep C Ab Nonreactive Nonreactive Comment: Interpretive [...] GENERAL ORDERABLES Final Result Performing Organization Address City/State/[facility] Co de Phone Number [facility] [phone] Department [place] [address] from Last 3 Months or Most Recently Relevant to Health Maintenance Insurance [facility] CHOICE OOS Care Teams Deputy Sheriff Generalist Relationship Specialty Start Date End Date Tyree Martínez MD [address] [facility] [address] [place] [address] PCP - General Family Medicine 08/06/23 Akbar Ureña MD [address] [place] [address] Referring Physician Obstetrics and Gynecology 08/06/23
--- OUTSIDE RECORDS SUMMARY | 2024-10-12 17:19 | XMS_ITS | Encounter Summary ---
Author Organization [facility] Address [facility] [place] [address] Care Team Providers Care Power Generation Turbine Room Operator Name Role Phone None, Provider Primary Care Provider Amya ble Encounter Details Date Type Department Care Team (Late st Contact Info) Description 10/17/2021 Apps Foundryt Message Enc [facility] Medical Group Orthopedic & Sports Medicine - [place] [address] [place] [address] [phone] Joshua Osborn MD [address] [place], [place] [address] 743- The Surgery Social History Tobacco Use Types [...] Encounter [facility] [place] [address] Joshua Osborn MD [address] [place] [address] 10/28/2024 10:35 AM CDT - 10/28/2024 12:[address] [place] [address] Joshua Osborn MD [address] [place] [address] right wrist diagnostic arthroscopy with debridement and repair of triangular fibrocartilage complex ligament 11/03/2024 10:00 AM CDT Office Visit [facility] Medical Group Orthopedic & Sports Medicine - [place] [address] [place] [address] Joshua Osborn MD [address] [place] [address] Scheduled Procedures Name Priority Associated Diagnoses Date/Ti me ARTHROSCOPY WRIST Injury of triangular fibrocartilage complex (TFCC) of right wrist, initial encounter 10/28/2024 10:35 AM CDT documented as of this encounter Visit Diagnoses Not on filedocumented in this encounter Care Teams Power Generation Turbine Room Operator Relationship Specialty Start Date End Date None, Provider, PCP - General 10/29/18 documented as of this encounter
--- OUTSIDE RECORDS SUMMARY | 2024-10-12 17:19 | XMS_ITS | Clinical Summary ---
Author Organization [facility] Address [address] [place] [place] [address] Care Team Providers Care Learning And Development Analyst Name Role Phone Unavailable Primary Care Provider Unavailabl e Source Comments [facility],non-owned Affiliates and Associated Physician Practices is amultiple site organization consisting of ambulatory clinics and hospital sitesin [place], [place], [place]. This disclosure is being madepursuant to the Care Everywhere program and may not contain all information available regarding this patient. 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 Gender Identity Not on file Sexual Orientation [...] Routine 05/14/2018 9:31 AM CDT Encntr for collar fuser exam (general) (routine) w/o abn findings from Last 3 Months or Most Recently Relevant to Health Maintenance Results * CHLAMYDIA + GC AMPLIFIED PROBE (05/14/2018 9:31 AM CDT) Chlamydia NA Urine Negative Negative [facility] ACCOUNT BILL GC NA Urine Negative Negative [facility] ACCOUNT BILL Microbiology ENTIRE ENDOCERVIX / Unknown 05/14/2018 9:31 AM CDT 05/14/2018 Narrative Resulting Agency Comment [facility] [address] [place] [phone] [place] Aylin Odom MD LAB - MICROBIOLOGY ORDERABL ES Final Result [facility] ACCOUNT BILL [address] [place] [address] from Last 3 Months or Most Recently Relevant to Health Maintenance Insurance
--- OUTSIDE RECORDS SUMMARY | 2024-10-12 17:19 | XMS_ITS | Clinical Summary ---
Author Organization [facility] Address [address] [place] [address] Care Team Providers Care Bundle Packer Name Role Phone None, Provider MD Primary [...] Care Team Description 10/02/2024 Prep for Procedure [facility] Medical Group Orthopedic & Sports Medicine - [place] [address] [address] Joshua Osborn MD 10/01/2024 2:40 PM CDT Office Visit [facility] Orthopedic & Sports [facility] [address] [place] [address] Joshua Osborn MD Follow Up (Right tfcc ) 10/01/2024 Travel 08/17/2024 11:45 AM CDT Office Visit [facility] Occupational Therapy [address] [place] [address] Joshua Osborn MD Pratt, Robin M, OTR Wrist Pain 08/17/2024 Travel 08/10/2024 10:00 AM CDT Office Visit [facility] Orthopedic & Sports [facility] [address] [place] [address] Joshua Osborn MD Follow Up (Right wrist [...] 10/28/2024 10:35 AM CDT Hospital Encounter [facility] [place] [address] Joshua Osborn MD [address] [place], [place] [address] [phone] 10/28/2024 10:35 AM CDT - 10/28/2024 12:[address] [facility] [place], [place] [address] Joshua Osborn MD [address] [place] [address] right wrist diagnostic arthroscopy with debridement and repair of triangular fibrocartilage complex ligament 11/03/2024 10:00 AM CDT Office Visit [facility] Medical Group Orthopedic & Sports Medicine - [place] [address] [place] [address] Joshua Osborn MD [address] [place] [address] Scheduled Procedures Name Priority Associated Diagnoses Date/Ti [...] topic Meningococcal Vaccine Completed 09/25/2016 PHQ-2 (Physician [place]) Completed 06/29/2024 Meningococcal B Vaccine Aged Out [...] Date Diagnosed Date Autogenerated Problem 10/02/2024 Insurance [facility] Care Teams Bundle Packer Relationship Specialty Start Date End Date None, Provider, PCP - General 10/29/18
== END 2024-10-12 17:27 | disposition home or self-care (01) ==
LOC: ANHED 17:17
PROVIDERS: Emergency Provider Nurse Practitioner Family
DX: L60.0 Ingrowing nail (principal); L03.031 Cellulitis of right toe
CPT/HCPCS: 99283

== ENCOUNTER 2024-11-09 15:12 | Outpatient (CLI) | payer BC, SELFPAY ==
--- OUTSIDE RECORDS SUMMARY | 2004-06-30 19:00 | XMS_ITS | Continuity of Care Document ---
Author Organization [facility] Address [address] [place] [address] Phone Care Team Providers Care Glaze Wiper Name Role Phone Valeria Sanches MD Unavailable Unavailable Advance Directives Directive Yes / No Effective Date File Name No Information Encounters Encounter Description Practice Location Reason(s) For Visit Diagnoses Date Provider Providers Copied on Encounter Apptive [facility], [address], [place], [place], [address], [place] tel:[phone] Brent Rider No Information Verónica Shaw. [address], [address], [place], [place], [address], [place]. tel:[phone] Family History Family Member Type Diagnosis Age At Onset No Information Immunizations Vaccine Date Status Comments 53516 - DTaP_DTP_DT_PEDS administered Britney rce: Source Unspecified 32096 - MMR administered Source: Source Unspecified 71383 - Polio_OPV_IPV administered Source : Source Unspecified 49686 - Hepatitis_A administered Source: Source Unspecified Payers [...]
--- OUTSIDE RECORDS SUMMARY | 2024-11-09 15:22 | XMS_ITS | Clinical Summary ---
Author Organization [facility] Address [address] [place] [address] Care Team Providers Care Engine Lathe Operator Name Role Phone Unavailable Primary Care Provider Unavailabl e Source Comments [facility],non-owned Affiliates and Associated Physician Practices is amultiple site organization consisting of ambulatory clinics and hospital sitesin [place], [place] and [place]. This disclosure is being madepursuant to the Care Everywhere program and may not contain all information available regarding this patient. 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 Gender Identity Not on file Sexual Orientation [...] CHLAMYDIA/GONORRHEA SCREENING 05/15/2019 05/14/2018 PAP SMEAR 06/06/2020 DEPRESSION SCREENING 02/19/2024 12/02/2023 COVID-19 VACCINE ( - season) 2024 INFLUENZA VACCINE (#1) 2024 02/01/2003 DTAP/TDAP/TD VACCINES [...] Routine 05/14/2018 9:31 AM CDT Encntr for survey coordinator exam (general) (routine) w/o abn findings from Last 3 Months or Most Recently Relevant to Health Maintenance Results * CHLAMYDIA + GC AMPLIFIED PROBE (05/14/2018 9:31 AM CDT) Chlamydia NA Urine Negative Negative [facility] ACCOUNT BILL GC NA Urine Negative Negative [facility] ACCOUNT BILL Microbiology ENTIRE ENDOCERVIX / Unknown 05/14/2018 9:31 AM CDT 05/14/2018 Narrative Resulting Agency Comment [facility] [address] [place] [phone] us Aylin Odom MD LAB - MICROBIOLOGY ORDERABL ES Final Result [facility] ACCOUNT BILL [address] [place] [address] from Last 3 Months or Most Recently Relevant to Health Maintenance Insurance
--- OUTSIDE RECORDS SUMMARY | 2024-11-09 15:22 | XMS_ITS | Clinical Summary ---
Author Organization [facility] [address] Address [address] [facility] [address] [place] [address] Care Team Providers Care Deputy General Counsel Name Role Phone Akbar Ureña MD Unavailable [phone] Tyree Martínez MD Primary Care Provider Allergies No known active allergies Medications sertraline [...] Description 08/14/2024 7:15 PM CDT Office Visit [facility] Medical Group Convenient Care at [address] [address] Shwetha Garcia, SENIOR CHEMICAL ENGINEER Ingrown right greater toenail (Primary Dx) from Last 3 Months Immunizations [...] on file 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 CHOICE OOS Care Teams Deputy General Counsel Relationship Specialty Start Date End Date Tyree Martínez MD [address] [facility] [address] [place] [address] PCP - General Family Medicine 08/06/23 Akbar Ureña MD [address] [place] [address] Referring Physician Obstetrics and Gynecology 08/06/23
[2024-11-09 16:21] LABS: Beta HCG Quantitative < 2.39 mIU/ML
== END 2024-11-09 15:13 | disposition home or self-care (01) ==
LOC: ANHLAB 15:14
PROVIDERS: Visit Provider Obstetrics & Gynecology
DX: N91.2 Amenorrhea, unspecified (principal)
CPT/HCPCS: 36415; 84702

== ENCOUNTER 2025-01-01 18:10 | Emergency (ER) | payer BC, SELFPAY ==
[2025-01-01 18:11] VITALS: BP 106/99; PULSE 92; RESP 18; TEMP 37.1; O2SAT 99
--- NOTE | 2025-01-01 19:52 | ED_ITS ---
HPI - General Adult General Chief complaint: Unspecified Stated complaint: cast is wet Time Seen by Provider: 01/01/25 19:35 History of Present Illness HPI narrative: Patient is a 24-year-old female who presents to the ER with request for a cast replacement. She reports she had surgery for ligament tear on December 02, 2024. Patient reports she had her cast replaced 1 week ago. She reports she was taking a bath today and her bag leaked. Patient reports her pain is well managed at this time. She denies any decreased range of motion, excessive swelling, or recent fevers. Patient denies any other medical history relevant to this ER visit. Related Data Home Medications ?Medication ?Instructions ?Recorded ?Confirmed ?Last Taken ?Type No Home Medications 10/13/24 10/13/24 U nknown History Allergies Allergy/AdvReac Type Severity Reaction Status Date / Time No Known Allergies Allergy Verified 01/01/25 18:11 Review of Systems Review of Systems: All systems reviewed & are unremarkable except as noted in HPI and below PMFSH Past Medical History Medical History Vaginal discharge Encounter for IUD removal Encounter for insertion of mirena IUD Encounter for screening examination for sexually transmitted disease Anxiety and depression Obesity and not yet delivered Suppression of menstruation Healthy female adult Surgical History Surgical History No history of previous surgery Family History Family History Other No problems noted. Grandparent Cancer Diabetes mellitus Sibling Autism Social History Social History Smoking status: Never smoker Second hand tobacco smoke exposure: No Alcohol intake: never Substance use: never Substance use type: does not use Do You Feel Safe in your Home?: Yes Lack of Transportation: No Lack of Food: Sometimes True Current Housing: Decline to Answer Concerned About Future Housing: Decline to Answer Difficulty Paying Gas/Electric Bills: Decline to Answer Difficulty Paying for Meds: Decline to Answer Currently Unemployed: Decline to Answer Education: Decline to Answer Difficulty w/ Childcare or Family Care: Decline to Answer Living arrangements: other Additional living arrangements comments: single Occupation/Education: occupation Additional occupation/education comments: [employer] Gender identity (if verbalized by the patient): Female Sexual Orientation (if Verbalized by the Patient): Straight or Heterosexual Spiritual care concerns: No Exam Narrative: GENERAL: Well appearing, well-nourished, non-toxic, in no acute distress. HEAD: Normocephalic, atraumatic. NECK: Supple. No adenopathy, no masses. RESPIRATORY: Airway patent, respirations nonlabored. Clear to auscultation bilaterally, no rales, rhonchi, wheezing. CARDIOVASCULAR: Regular rate and rhythm without murmurs, rubs, or gallops. Peripheral pulses 2+ and equal bilaterally. ABDOMINAL: Soft, nontender, nondistended, no hepatosplenomegaly. Normoactive BS. MUSCULOSKELETAL: Moves all extremities. SKIN: Warm, dry, normal color. No rashes. NEURO: A&O X3. Speech clear. Cranial nerves II-XII intact. No ataxic movements. PSYCHIATRIC: Appropriate mood and affect. Normal interaction. Course Vital Signs Vital signs: Vital Signs Temperature 37.1 C 01/01/25 18:11 Pulse Rate 92 01/01/25 18:11 Respiratory Rate 18 01/01/25 18:11 Blood Pressure 106/99 H 01/01/25 18:11 Pulse Oximetry 99 01/01/25 18:11 Oxygen Delivery Room Air 01/01/25 18:11 Temperature 37.1 C 01/01/25 18:11 Pulse Rate 92 01/01/25 18:11 Respiratory Rate 18 01/01/25 18:11 Blood Pressure 106/99 H 01/01/25 18:11 Pulse Oximetry 99 01/01/25 18:11 Oxygen Delivery Room Air 01/01/25 18:11 Medical Decision Making MDM Narrative Medical decision making narrative: Patient is a 24-year-old female who presents to the ER with request for a cast replacement. She reports she had surgery for ligament tear on December 02, 2024. Patient reports she had her cast replaced 1 week ago. She reports she was taking a bath today and her bag leaked. Patient reports her pain is well managed at this time. She denies any decreased range of motion, excessive swelling, or recent fevers. Patient denies any other medical history relevant to this ER visit. Patient Education/Shared MDM: Cast replaced with OCL. Patient strongly advised to follow-up with her orthopedic surgeon as soon as possible for full cast replacement. *Pt left before LINUX SECURITY ADMINISTRATOR was able to check her OCL. Differential Diagnosis Differential Diagnosis: edematous upper extremity, decreased range of motion, cast replacement Vital Signs Vital Signs: Vital Signs Temperature 37.1 C 01/01/25 18:11 Pulse Rate 92 01/01/25 18:11 Respiratory Rate 18 01/01/25 18:11 Blood Pressure 106/99 H 01/01/25 18:11 Pulse Oximetry 99 01/01/25 18:11 Oxygen Delivery Room Air 01/01/25 18:11 Temperature 37.1 C 01/01/25 18:11 Pulse Rate 92 01/01/25 18:11 Respiratory Rate 18 01/01/25 18:11 Blood Pressure 106/99 H 01/01/25 18:11 Pulse Oximetry 99 01/01/25 18:11 Oxygen Delivery Room Air 01/01/25 18:11 Discharge Plan Discharge Clinical Impression: Cast removal, Encounter for replacement of cast Patient Disposition: Elopement After Seen by Prov Patient Language: Nepali Prescriptions: No Action No Home Medications Follow-up/Referrals: PHYSICIAN,SALES SUPPORT ENGINEER [Primary Care Provider, Internal Medicine]
--- NOTE | 2025-01-01 20:13 | PC.NURSE ---
Pt current cast removed by this RN using plaster saw.
--- OUTSIDE RECORDS SUMMARY | 2025-01-01 20:32 | XMS_ITS | Encounter Summary ---
Author Organization [facility] Address [address] [place] [address] Care Team Providers Care Belt Loop Maker Name Role Phone None, Provider Primary Care Provider Blanco mccormick Encounter Details Date Type Department Care Team (Late Contact Info) Description 10/23/2024 [email or web address] Message Enc [facility] Pre-Admission Testing [place], [place] [address] Kassy, [facility] Provider Surgery Pre-Op Instructions Social History Tobacco Use Types Packs/Day Years [...] on file Sexual Orientation Not on file documented as of this encounter Plan of Treatment Upcoming Encounters Date Type Department Care Team (Late Contact Info) Description 01/19/2025 2:20 PM LAST REPAIRER HELPER Office Visit [facility] Medical [facility] Orthopedic & Sports Medicine - [place] [address] [place] [address] Joshua Osborn MD [address] [place] [address] documented as of this encounter Visit Diagnoses Not on filedocumented in this encounter Care Teams Belt Loop Maker Relationship Specialty Start Date End Date None, Provider, PCP - General 10/29/18 documented as of this encounter
--- OUTSIDE RECORDS SUMMARY | 2025-01-01 20:32 | XMS_ITS | Encounter Summary ---
Author Organization [facility] Address [address] [place] [address] Care Team Providers Care Science Interpreter Name Role Phone None, Provider Primary Care Provider Blanco mccormick Encounter Details Date Type Department Care Team (Late Contact Info) Description 10/23/2024 RadioRx Message Enc [facility] Pre-Admission Testing [address] [place], [place] [address] Kassy, [facility] Provider Surgery Pre-Op Instructions Social History Tobacco [...] (Late Contact Info) Description 01/19/2025 2:20 PM FRANCHISE BUSINESS CONSULTANT Office Visit [facility] Medical [facility] Orthopedic & Sports Medicine - [place] [address] [place] [address] Joshua Osborn MD [address] [place] [address] documented as of this encounter Visit Diagnoses Not on filedocumented in this encounter Care Teams Science Interpreter Relationship Specialty Start Date End Date None, Provider, PCP - General 10/29/18 documented as of this encounter
--- OUTSIDE RECORDS SUMMARY | 2025-01-01 20:33 | XMS_ITS | Clinical Summary ---
Author Organization [facility] Address [address] [place] [address] Care Team Providers Care Mining Consultant Name Role Phone None, Provider MD Primary Care Provider Unavaila ble Allergies No known active allergies Medications HYDROcodone-acetam inophen (NORCO) 5-325 MG tabletIndications: Acute Pain < 7 Day Supply Take 1-2 tablets by mouth every 6 (six) hours as needed for Pain. 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, initial encounter Follow package directions 1 each 01/01/20 25 Active Active Problems Problem Noted Date Diagnosed Date Injury of triangular fibroca rtilage complex (TFCC) of right wrist, initial encounter 10/02/2024 Encounters Date Type Department Care Team Description 12/31/2024 Orders Only [facility] Medical [facility] Orthopedic & Sports Medicine - [place] [address] [place] [address] Joshua Osborn MD 12/31/2024 MyChart Message Enc [facility] Orthopedic & Sports Medicine - [place] [address] [place] [address] Joshua Osborn MD Prescription 12/29/2024 2:20 PM MORTGAGE LOAN ORIGINATOR Office Visit [facility] Orthopedic & Sports Medicine - [place] [address] [place] [address] Joshua Osborn MD Postop Followup (Right tfcc repair sx 12/09/24) 12/29/2024 Travel 12/17/2024 Telephone [facility] [address] [place] [address] Joshua Osborn MD Pain 12/15/2024 9:40 AM CDT Office Visit [facility]opedic [facility] [address] [place] [address] Joshua Osborn MD Postop Followup (Right tfcc repair sx 12/09/24) 12/15/2024 Travel 12/09/2024 12:20 PM CDT - 12/09/2024 2:[address] [place] [address] Joshua Osborn MD right wrist diagnostic arthroscopy with debridement and repair of triangular fibrocartilage complex ligament 12/09/2024 11:56 AM CDT [address] [place] [address] Davide Levi DO Jarvis, Brittany L, SOURCER 12/09/2024 9:12 AM CDT - 12/09/2024 2:31 PM CDT Hospital Encounter [facility] [place] [address] Joshua Osborn MD Discharge Disposition: Home or Self Care (Routine Discharge) 12/09/2024 Travel 12/01/2024 Seedert Message Enc [facility] [place] [address] Kassy [facility] Provider SURGERY INSTRUCTIONS 11/26/2024 2:40 PM CDT Office Visit [facility] [address] [place] [address] Joshua Osborn MD Follow Up (Right tfcc tear ) 11/26/2024 Travel 11/09/2024 Telephone [facility] [address] [place] [address] Joshua Osborn MD Schedule Surgery 10/28/2024 8:45 PM CDT Anesthesia Event [facility] [place] [address] Maria D Abreu MD Jackson, Samantha Rae, SUSTAINABILITY PURCHASING AGENT 10/28/2024 7:30 AM CDT - 10/28/2024 8:50 AM CDT Hospital Encounter [facility] [place] [address] Joshua Osborn MD Discharge Disposition: Home or Self Care (Routine Discharge) 10/28/2024 Travel 10/23/2024 Tissuetech Message Enc [facility] [place] [address] Kassy [facility] Provider Surgery Pre-Op Instructions 10/23/2024 Tissuetech Message Enc [facility] [place] [address] Kassy [facility] Provider Surgery Pre-Op Instructions 10/23/2024 Travel 10/02/2024 Prep for Procedure [facility] [address] [place] [address] Joshua Osborn MD 10/01/2024 2:40 PM CDT Office Visit [facility] [address] [place] [address] Joshua Osborn MD Follow Up (Right tfcc ) 10/01/2024 Travel from Last 3 Months Immunizations Immunization Administration Dates Next Due Dtap (Acel-Immune) 10/02/2004, 5,11/18/2000,11/19,1999,1999 Hepatitis B Pediatric 1999,1999,05/19 Hib (Generic) 11/18/2000,1999,1999 Influenza (Generic) 02/01/2003 MENINGOCOCCAL A C Y&W-135 oligosaccharide (MENVEO) 09/25/2016 MMR (MMRII) 10/02/2004,04/20/2004,11/18/2000 Pneumococcal (Prevnar 7) 11/18/2000,02/19,1999,09/19 Polio IPV (Ipol) 10/02/2004, 5,11/18/2000,09/19,1999 Tdap (Generic) 03/26/2024, 0,04/23/2019,05/19 Varicella (Varivax) 11/18/2000 Family History Medical History [...] Sign Reading Time Taken Comments Blood Pressure 96/62 12/29/2024 2:07 PM MORTGAGE LOAN ORIGINATOR Pulse 65 12/29/2024 2:07 PM MORTGAGE LOAN ORIGINATOR Temperature 36.9 C (98.5 F) 12/29/2024 2:07 PM MORTGAGE LOAN ORIGINATOR Respiratory Rate 16 12/09/2024 2:24 PM CDT Oxygen Saturation 97% 12/09/2024 2:24 PM CDT Inhaled Oxygen Concentration - - Weight 77.6 kg (171 lb) 12/29/2024 2:07 PM MORTGAGE LOAN ORIGINATOR Height 162.6 cm (5' 4) 12/29/2024 2:07 PM MORTGAGE LOAN ORIGINATOR Body Mass Index 29.35 12/29/2024 2:07 PM MORTGAGE LOAN ORIGINATOR Plan of Treatment Upcoming Encounters Date Type Department Care Team (Late st Contact Info) Description 01/19/2025 2:20 PM MORTGAGE LOAN ORIGINATOR Office Visit [facility] Medical Group Orthopedic & Sports Medicine - [place] [address] [place] [address] Joshua Osborn MD [address] [place], [place] [id number] Health Maintenance Due Date Last Done Comments Annual Physical 06/06/2002 HPV Vaccines (1 - 3-dose series) 06/06/2014 Hepatitis C 06/06/2017 Cervical Cancer Screening Pap Smear (Age 21 to 29) Every 3 Years 05/14/2021 05/14/2018 Cervical Cancer Screening 05/14/2021 COVID-19 Vaccine ( season) 2024 Influenza Adult (#1) 2024 02/01/2003 DTaP, Tdap and Td Vaccines (10 - Td or Tdap) 03/26/2034 03/26/2024, 06/25/2019, 04/23/2019, Additional history exists Hepatitis B Vaccines Completed 1999, 1999, 1999 Pneumococcal Vaccine: Pediatrics (0 to 5 Years) and At-Risk Patients (6 to 49 Years) Aged Out 11/18/2000, 03/13/2000, 1999, Additional history exists No longer eligible based on patient's age to complete this topic Meningococcal Vaccine Completed 09/25/2016 PHQ-2 (Physician [place]) Completed 06/29/2024 Hepatitis A Vaccines Aged Out No long er eligible based on patient's age to complete this topic Meningococcal B Vaccine Aged Out No l onger eligible based on patient's age to complete this topic RSV Immunizations Under 20 Months Aged Out No longer eligible based on patient's age to complete this topic Medical Devices Implanted Type Area Lace Burn Out Tender Device Identifier Shelf Expiration Date Model / Serial / Lot Tfcc Mender Disposable Suture System Implanted:Qty: 1 on 12/09/2024 by Joshua Osborn MD at [facility] Right: Wrist [employer] [id number] 04/10/2028 [id number] / / [id number] Procedures Procedure Name Priority Date/Time Associated Diagnosis Comments SURG XR WRIST RT 2V Routine 12/09/2024 1:29 PM CDT ARTHROSCOPY WRIST DIAG W/WO SYNOVIAL BIOPSY SPX 12/09/2024 11:56 AM CDT Injury of triangular fibrocartilage complex (TFCC) of right wrist, initial encounter Case Notes RESCHED PER EREN 11/27/2024 [facility] PHONE ASSESS SCHED BY EREN 10/02/2024 [facility] PHONE ASSESS POCT URINE (BACK OFFICE) Routine 12/09/2024 Preop examination HC HCG QL Routine 10/28/2024 8:20 AM CDT TEST URINE Routine 10/28/2024 7:50 AM CDT from Last 3 Months Results * SURG XR WRIST RT 2V (12/09/2024 1:29 PM CDT) Anatomical Region Laterality Modality Wrist Radiographic Meghna ging 12/09/2024 11:5 8 PM CDT Impressions 12/09/2024 11:58 PM CDT Impression: No radiologic interpretation will be issued. The report and documentation of this exam will reside in the patient's permanent medical record and in the attending physician's procedure note. Referred By: Interpreted By: Mark Tapia MD, 12/09/2024 11:58 PM Narrative 12/09/2024 11:58 PM CDT [address] [address] Intraoperative fluoroscopic views of the right wrist Reason for Exam: intraop Dose: Total Dose Area Product: 0.0135 (Gycm2). Technique: Intraoperative fluoroscopy control images obtained. FLUOROSCOPY CONTROL ONLY Procedure Note Mark Tapia MD - 12/09/2024 [facility] [address] [place], [place] [address] Intraoperative fluoroscopic views of the right wrist Reason for Exam: intraop Dose: Total Dose Area Product: 0.0135 (Gycm2). Technique: Intraoperative fluoroscopy control images obtained. FLUOROSCOPY CONTROL ONLY Impression: No radiologic interpretation will be issued. The report and documentationof this exam will reside in the patient's permanent medical record and inthe attending physician's procedure note. Referred By: Interpreted By: Mark Tapia MD, 12/09/2024 11:58 PM Joshua Osborn MD IMAGES ONLY Final Result * POCT urine (12/09/2024) Pathologist [facility] URINE HCG TEST NEGATIVE NEGATIVE [facility] Comment:LOT:[id number] EXP: 2026-05-14 Internal Control: VALID VALID [facility] 12/09/2024 Parris Tracy CNP POINT OF CARE TEST ORDERAB LES Final Result [facility] [address] [place] [address], * PREG TEST SERUM (HCG QUALITATIVE) (10/28/2024 8:20 AM CDT) Pathologist [facility] PREG SCREEN-SERUM POSITIVE 10/28/2024 8:42 AM CDT [facility] 10/28/2024 8:20 AM CDT Joshua Osborn MD LABORATORY Final Result [facility] [address] [place] [address], [place] [phone] * (ABNORMAL) TEST URINE (10/28/2024 7:50 AM CDT) URINE HCG TEST POSITIVE(A ) NEGATIVE [facility] Comment:test line faint, padmini l run serum preg test. lot # [id number], exp 2026-03-11 Internal Control: VALID VALID [facility] URINE SPECIMEN OBTAINED BY CLEAN CATCH PROCEDURE / Unknown 10/28/2024 7:50 AM CDT Joshua Osborn MD URINE ORDERABLES Final Result Performing Organization Address [facility] Co de Phone Number [facility] [address] [place] [address], [place] [phone] from Last 3 Months Insurance Care Teams Mining Consultant Relationship Specialty Start Date End Date None, Provider, PCP - General 10/29/18
--- OUTSIDE RECORDS SUMMARY | 2025-01-01 20:33 | XMS_ITS | Encounter Summary ---
Author Organization [facility] Address [address] [place] [address] Care Team Providers Care Software Application Tester Name Role Phone None, Provider Primary Care Provider Blanco mccormick Encounter Details Date Type Department Care Team (Late Contact Info) Description 12/31/2024 Orders Only [facility] Medical [facility] Orthopedic & Sports Medicine [place] [address] [place], [place] [id number] [phone] Joshua Osborn MD [address] [place], [place] [id number] Social History Tobacco Use Types Packs/Day Years [...] (Late Contact Info) Description 01/19/2025 2:20 PM MINIATURE TRAIN DRIVER Office Visit [facility] Orthopedic & Sports Medicine [place] [address] [place] [address] Joshua Osborn MD [address] [place] [address] documented as of this encounter Visit Diagnoses Diagnosis Injury of triangular fibrocartilage complex (TFCC) of right wrist, initial encounter- Primary documented in this encounter Care Teams Software Application Tester Relationship Specialty Start Date End Date None, Provider, PCP - General 10/29/18 documented as of this encounter
--- OUTSIDE RECORDS SUMMARY | 2025-01-01 20:33 | XMS_ITS | Encounter Summary ---
Author Organization [facility] Address [address] [place] [address] Care Team Providers Care Hammer Mill Operator Name Role Phone None, Provider Primary Care Provider Blanco mccormick Encounter Details Date Type Department Care Team (Late st Contact Info) Description 10/17/2021 Sugar Free Mediat Message Enc [facility] Medical Group Orthopedic & Sports Medicine - [place] [address] [place], [place] [address] [phone] Joshua Osborn MD [address] [place] [address] The Surgery Social History Tobacco Use Types [...] st Contact Info) Description 01/19/2025 2:20 PM SCHEDULING CLERK Office Visit [facility] Medical Group Orthopedic & Sports Medicine - [address] [place] [address] Joshua Osborn MD [address] [place] [address] documented as of this encounter Visit Diagnoses Not on filedocumented in this encounter Care Teams Hammer Mill Operator Relationship Specialty Start Date End Date None, Provider, PCP - General 10/29/18 documented as of this encounter
--- OUTSIDE RECORDS SUMMARY | 2025-01-01 20:33 | XMS_ITS | Encounter Summary ---
Author Organization [facility] Address [address] [place] [address] Care Team Providers Care Job Setter Honing Name Role Phone None, Provider Primary Care Provider Blanco mccormick Encounter Details Date Type Department Care Team (Late st Contact Info) Description 07/12/2021 Elonicst Message Enc [facility] Medical Group Orthopedic & Sports Medicine - [place] [address] [place], [place] [address] [phone] Joshua Osborn MD [address] [place] [address] Hand/ wrist Social History Tobacco Use Types [...] st Contact Info) Description 01/19/2025 2:20 PM BEEF TRIMMER Office Visit [facility] Medical Group Orthopedic & Sports Medicine - [place] [address] [place] [address] Joshua Osborn MD [address] [place] [address] documented as of this encounter Visit Diagnoses Not on filedocumented in this encounter Care Teams Job Setter Honing Relationship Specialty Start Date End Date None, Provider, PCP - General 10/29/18 documented as of this encounter
--- OUTSIDE RECORDS SUMMARY | 2025-01-01 20:33 | XMS_ITS | Encounter Summary ---
Author Organization [facility] Address [address] [place] [address] Care Team Providers Care Director Part Name Role Phone None, Provider Primary Care Provider Blanco mccormick Encounter Details Date Type Department Care Team (Late Contact Info) Description 12/01/2024 [employer]tec Message Enc [facility] Pre-Admission Testing [address] [place], [place] [address] [place], [facility] Provider SURGERY INSTRUCTIONS Social History Tobacco Use Types Packs/Day Years [...] (Late Contact Info) Description 01/19/2025 2:20 PM CAPACITY PLANNING ENGINEER Office Visit [facility] Medical Group Orthopedic & Sports Medicine - [place] [address] [place] [address] Joshua Osborn MD [address] [place] [address] documented as of this encounter Visit Diagnoses Not on filedocumented in this encounter Care Teams Director Part Relationship Specialty Start Date End Date None, Provider, PCP - General 10/29/18 documented as of this encounter
--- OUTSIDE RECORDS SUMMARY | 2025-01-01 20:34 | XMS_ITS | Clinical Summary ---
Author Organization [facility] [employer] Address [address] [place] [address] Care Team Providers Care Superintendent System Operation Name Role Phone Unavailable Primary Care Provider Unavailabl e Source Comments [facility],non-owned Affiliates and Associated Physician Practices is amultiple site organization consisting of ambulatory clinics and hospital sitesin [place], [place], [place] and [place]. This disclosure is being madepursuant to the Care Everywhere program and may not contain all information available regarding this patient. 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 Gender Identity Not on file Sexual Orientation [...] 06/06/2020 DEPRESSION SCREENING 02/19/2024 12/02/2023 COVID-19 VACCINE (1 - season) 2024 INFLUENZA VACCINE (#1) 2024 [...] Routine 05/14/2018 9:31 AM CDT Encntr for radio antenna installer exam (general) (routine) w/o abn findings from Last 3 Months or Most Recently Relevant to Health Maintenance Results * CHLAMYDIA + GC AMPLIFIED PROBE (05/14/2018 9:31 AM CDT) Chlamydia NA Urine Negative Negative [facility] ACCOUNT BILL GC NA Urine Negative Negative [facility] ACCOUNT BILL Microbiology ENTIRE ENDOCERVIX / Unknown 05/14/2018 9:31 AM CDT 05/14/2018 Narrative Resulting Agency Comment [facility] [place] [facility] SPENCE [phone] us Aylin Odom MD LAB - MICROBIOLOGY ORDERABL ES Final Result [facility] ACCOUNT BILL [address] [place] [address] from Last 3 Months or Most Recently Relevant to Health Maintenance Insurance
--- OUTSIDE RECORDS SUMMARY | 2025-01-01 20:34 | XMS_ITS | Encounter Summary ---
Author Organization [facility] Address [address] [place] [id number] Care Team Providers Care Hedge Fund Manager Name Role Phone None, Provider Primary Care Provider Blanco mccormick Encounter Details Date Type Department Care Team (Late Contact Info) Description 12/31/2024 MyChart Message Enc [facility] [address] [place], [place] [address] [phone] Joshua Osborn MD [address], [place] [phone] Prescription Social History Tobacco Use Types Packs/Day Years [...] (Late Contact Info) Description 01/19/2025 2:20 PM COPY LATHE OPERATOR Office Visit [facility] [address] [place] [address] Joshua Osborn MD [address] [place] [address] documented as of this encounter Visit Diagnoses Not on filedocumented in this encounter Care Teams Hedge Fund Manager Relationship Specialty Start Date End Date None, Provider, PCP - General 10/29/18 documented as of this encounter
--- OUTSIDE RECORDS SUMMARY | 2025-01-01 20:34 | XMS_ITS | Clinical Summary ---
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 Not on file [...] GENERAL ORDERABLES Final Result Performing Organization Address City/State/[facility] [place] Phone Number [facility] [phone] [place] [address] from Last 3 Months or Most Recently Relevant to Health Maintenance Insurance [facility] [place] [address] Care Teams Extract Operator Relationship Specialty Start Date End Date Tyree Martínez MD [address] [place] [address] PCP - General Family Medicine 08/06/23 Akbar Ureña MD [address] [place] [address] Referring Physician Obstetrics and Gynecology 08/06/23
--- OUTSIDE RECORDS SUMMARY | 2025-01-01 20:41 | XMS_ITS | Data Portability ---
Author Organization [facility] Address [address] [place] [address] Care Team Providers Care Research Programmer Name Role Phone AALIYAH LEAHY Primary Care Provider Unava ilable Assessment Encounter Date Assessment Date Assessment LastModified by Organization Details LastModified Time 04/28/2019 04/28/2019 TANESHA Blancas ([facility]) Not available 04/29/2019 04:03:41 05/07/2019 05/07/2019 TANESHA Blancas ([facility]) Not available 05/07/2019 14:34:29 Plan of Treatment Reminders Order Date Submit Date Provider Last Modified By Organization Details Last Modified Time Details Appointments None recorded. Lab urinalysi s, dipstick 2019 020 [email or web address] In-Office Order, Internal Use Only DO Not Attach Compendium DO Not Attach Compendium, Do Not Delete/merge, [id number] 0 12:34:47 culture, vaginal/r ectal, streptoco ccus group B - Please fax results to [facility] at 2019 020 DAISY [facility] (Centralized Electronic Ordering - All Locations), Patient Can Go To The Location Of Their Choice, [id number] 0 10:36:03 HSV (1+2) DNA, qual, PCR, unspecifi ed specimen - Please fax results to [facility] at [phone] 020 DAISY [facility] (Centralized Electronic Ordering - All Locations), Patient Can Go To The Location Of Their Choice, [id number] 0 10:36:02 bacterial vaginosis + vaginitis panel, vaginal - Please fax results to [facility] at 2019 020 DAISY [facility] (Centralized Electronic Ordering - All Locations), Patient Can Go To The Location Of Their Choice, [id number] 0 10:36:02 vdrl/RPR, serum 2019 020 tellisonrn [facility], [address], [place], [address], 0 13:15:40 HIV (1+2) Ab screen, serum 2019 tellisonrn [facility], [address], [place], [address], 0 13:15:40 HBsAg (hepatiti s B surface Ag), serum 2019 020 tellisonrn [facility], [address], [place], [address], 0 10:42:02 urinalysi s, dipstick 2019 020 [email or web address] 1 In-Office Order, Internal Use Only DO Not Attach Compendium DO Not Attach Compendium, Do Not Delete/merge, 0 11:13:21 CBC 2019 020 DAISY [facility], [address], [place], [address], 0 09:08:33 urinalysi s, dipstick 2019 020 DAISY In-Office Order, Internal Use Only DO Not Attach Compendium DO Not Attach Compendium, Do Not Delete/merge, 0 11:03:51 urinalysi s, dipstick 2019 [email or web address] 1 In-Office Order, Internal Use Only DO Not Attach Compendium DO Not Attach Compendium, Do Not Delete/merge, [id number] 0 11:31:13 bacterial vaginosis + vaginitis panel, vaginal 2019 [place] [facility], [address] [address], [place], [address], 0 08:18:02 Referral None recorded. Procedures None recorded. Surgeries None recorded. Imaging US, obstetric , 3rd trimester 2019 [facility] ([facility]), [address] [facility], [place], [address], 0 10:41:06 Medication Orders Junel Fe 24 1 mg-20 mcg (24)/75 mg (4) tablet 2019 020 INTERFACE [facility] #[id number], [address], [place], [id number], 0 12:35:59 cyanocoba sy (vit B-12) 1,000 mcg/mL injection solution 2019 [email or web address] Not available 0 15:01:07 fluconazo le 150 mg tablet 2019 INTERFACE [facility] #79375, [address] [facility] [facility], [place], [place], [phone], 0 11:36:17 terconazo le 0.4 % vaginal cream 2019 INTERFACE [facility] #43372, [address], [place], [id number], 0 12:16:19 nystatin 100,000 unit/gram topical cream 2019 020 INTERFACE [facility] #74046, [address] [facility] [facility], [place], [place], [phone], 0 12:16:19 Patient TargetsNo targets recorded. Patient Instructions Encounter Date Encounter Id Patient Instructions Last Modified By Organization Details Last Modified Time 05/07/2019 [id number] vaginal yeast infection: care instructions Not available [...] DO Not Attach Compendium, Do Not Delete/merge, [id number] 06/11/2019 12:22:49 06/11/19 20 06/11/2019 urina lysis [...] DO Not Attach Compendium, Do Not Delete/merge, [id number] 06/11/2019 12:22:49 06/11/19 20 06/11/2019 urina lysis , dipst ick Specific Blue Bell 1.030 Not Available In-Off ice Order Internal Use Only DO Not Attach Compendium DO Not Attach Compendium, Do Not Delete/merge, [id number] 06/11/2019 12:22:49 06/11/19 20 06/11/2019 urina lysis , dipst ick Ketone Trace Not Available In-Office Order Internal Use Only DO Not Attach Compendium DO Not Attach Compendium, Do Not Delete/merge, [id number] 06/11/2019 12:22:49 06/11/19 20 06/11/2019 urina lysis , dipst ick Bilirubin Small Not Available In-Offic e Order Internal Use Only DO Not Attach Compendium DO Not Attach Compendium, Do Not Delete/merge, [id number] 06/11/2019 12:22:49 06/11/19 20 06/11/2019 urina lysis , dipst ick Glucose Negati ve Not Available In-Office Order Internal Use Only DO Not Attach Compendium DO Not Attach Compendium, Do Not Delete/merge, 06/11/2019 12:22:49 04/09/19 20 04/09/2019 urina lysis , dipst ick Leukocytes Large Not Available In-Offi ce Order Internal Use Only DO Not Attach Compendium DO Not Attach Compendium, Do Not Delete/merge, [id number] 04/09/2019 10:59:00 04/09/19 20 04/09/2019 urina lysis , dipst ick Nitrite negati ve Not Available In-Office Order Internal Use Only DO Not Attach Compendium DO Not Attach Compendium, Do Not Delete/merge, 04/09/2019 10:59:00 04/09/19 20 04/09/2019 urina lysis , dipst ick Urobilinogen .2 Not Available In-Of fice Order Internal Use Only DO Not Attach Compendium DO Not Attach Compendium, Do Not Delete/merge, [id number] 04/09/2019 10:59:00 04/09/19 20 04/09/2019 urina lysis , dipst ick Protein Negati ve Not Available In-Office Order Internal Use Only DO Not Attach Compendium DO Not Attach Compendium, Do Not Delete/merge, [id number] 04/09/2019 10:59:00 04/09/1904/09/2019 urina lysis , dipst ick pH 6.0 Not Available In-Office Order Internal Use Only DO Not Attach Compendium DO Not Attach Compendium, Do Not Delete/merge, [id number] 04/09/2019 10:59:00 04/09/1904/09/2019 urina lysis , dipst ick Blood Hemoly zed: Trace Not Available In-Office Order Internal Use Only DO Not Attach Compendium DO Not Attach Compendium, Do Not Delete/merge, [facility] 04/09/2019 10:59:00 04/09/1904/09/2019 urina lysis , dipst ick Specific Blue Bell 1.025 Not Available In-Off ice Order Internal Use Only DO Not Attach Compendium DO Not Attach Compendium, Do Not Delete/merge, [id number] 04/09/2019 10:59:00 04/09/1904/09/2019 urina lysis , dipst ick Ketone Negati [...] 10:59:00 04/09/1904/09/2019 urina lysis , dipst ick Glucose Negati ve Not Available In-Office Order Internal Use Only DO Not Attach Compendium DO Not Attach Compendium, Do Not Delete/merge, 04/09/2019 10:59:00 04/23/1904/23/2019 urina lysis , dipst ick Leukocytes Small Not Available In-Offi ce Order Internal Use Only DO Not Attach Compendium DO Not Attach Compendium, Do Not Delete/merge, [facility] 04/23/2019 10:16:37 04/23/1904/23/2019 urina lysis , dipst [...] 10:16:37 04/23/1904/23/2019 urina lysis , dipst ick Blood Negati ve Not Available In-Office Order Internal Use Only DO Not Attach Compendium DO Not Attach Compendium, Do Not Delete/merge, 04/23/2019 10:16:37 04/23/1904/23/2019 urina lysis , dipst ick Specific Blue Bell 1.030 Not Available In-Off ice Order Internal Use Only DO Not Attach Compendium DO Not Attach Compendium, Do Not Delete/merge, 04/23/2019 10:16:37 04/23/1904/23/2019 urina lysis , dipst ick Ketone Negati [...] DO Not Attach Compendium, Do Not Delete/merge, [id number] 04/23/2019 10:16:37 04/28/1904/30/2019 bacte rial vagin osis + vagin itis panel , vagin al atopobium vaginae LOW - 0 score Not Available [facility] ([facility]) [address] [place], [address], 05/01/2019 08:18:02 04/28/1904/30/2019 bacte rial vagin osis + vagin itis panel , vagin al bvab 2 LOW - 0 score Not Available [facility] ([facility]) [address] [place], [address], 05/01/2019 08:18:02 04/28/1904/30/2019 bacte rial vagin osis [...] ([facility]) [address] [place], [address], 05/01/2019 08:18:02 04/28/1905/01/2019 bacte rial vagin osis + vagin itis panel , vagin al lala albicans, NA POSITI VE negati ve abnormal Not Available [facility] ([facility]) [address] [place], [address], 05/01/2019 08:18:02 04/28/1905/01/2019 bacte rial vagin osis + vagin itis panel , vagin al lala glabrata, NA NEGATI VE negati ve Not Available [facility] ([facility]) [address] [place], [address], 05/01/2019 08:18:02 04/28/1905/01/2019 bacte rial vagin osis + vagin itis panel , vagin al trich vag by NA NEGATI VE negati ve Not Available [facility] ([facility]) [address] [place], [address], 05/01/2019 08:18:02 04/28/1905/01/2019 bacte rial vagin osis + vagin itis panel , vagin al chlamydia trachomatis, NA NEGATI VE negati ve Not Available [facility] ([facility]) [address] [place], [address], 05/01/2019 08:18:02 04/28/1905/01/2019 bacte rial vagin osis + vagin itis panel , vagin al neisseria gonorrhoeae, NA NEGATI VE negati ve Not Available [facility] ([facility]) [address] [place], [address], 05/01/2019 08:18:02 05/07/1905/07/2019 urina lysis , dipst ick Leukocytes Small Not Available In-Offi ce Order Internal Use Only DO Not Attach Compendium DO Not Attach Compendium, Do Not Delete/merge, [id number] 05/07/2019 10:58:24 05/07/1905/07/2019 urina lysis , dipst ick Nitrite negati ve Not Available In-Office Order Internal Use Only DO Not Attach Compendium DO Not Attach Compendium, Do Not Delete/merge, [id number] 05/07/2019 10:58:24 05/07/19 20 05/07/2019 urina lysis , dipst ick Urobilinogen .2 Not Available In-Of fice Order Internal Use Only DO Not Attach Compendium DO Not Attach Compendium, Do Not Delete/merge, [facility] 05/07/2019 10:58:24 05/07/19 20 05/07/2019 urina lysis , dipst ick Protein Trace Not Available In-Office Order Internal Use Only DO Not Attach Compendium DO Not Attach Compendium, Do Not Delete/merge, [facility] 05/07/2019 10:58:24 05/07/19 20 05/07/2019 urina lysis , dipst ick pH 6.0 Not Available In-Office Order Internal Use Only DO Not Attach Compendium DO Not Attach Compendium, Do Not Delete/merge, [facility] 05/07/2019 10:58:24 05/07/19 20 05/07/2019 urina lysis , dipst ick Blood Non-He molyze d: Trace Not Available In-Office Order Internal Use Only DO Not Attach Compendium DO Not Attach Compendium, Do Not Delete/merge, [id number] 05/07/2019 10:58:24 05/07/19 20 05/07/2019 urina lysis , dipst ick Specific Blue Bell 1.030 Not Available In-Off ice Order Internal Use Only DO Not Attach Compendium DO Not Attach Compendium, Do Not Delete/merge, [id number] 05/07/2019 10:58:24 05/07/19 20 05/07/2019 urina lysis , dipst ick Ketone Negati ve Not Available In-Office Order Internal Use Only DO Not Attach Compendium DO Not Attach Compendium, Do Not Delete/merge, 05/07/2019 10:58:24 05/07/19 20 05/07/2019 urina lysis , dipst ick Bilirubin Negati ve Not Available In-Office Order Internal Use Only DO Not Attach Compendium DO Not Attach Compendium, Do Not Delete/merge, [id number] 05/07/2019 10:58:24 05/07/19 20 05/07/2019 urina lysis [...] 05/21/2019 urina lysis , dipst ick Specific Blue Bell 1.025 Not Available In-Off ice Order Internal Use Only DO Not Attach Compendium DO Not Attach Compendium, Do Not Delete/merge, 05/21/2019 10:41:25 05/21/1905/21/2019 urina lysis , dipst ick Ketone Negati ve Not Available In-Office Order Internal Use Only DO Not Attach Compendium DO Not Attach Compendium, Do Not Delete/merge, 05/21/2019 10:41:25 05/21/19 20 05/21/2019 urina lysis , dipst ick Bilirubin Negati ve Not Available In-Office Order Internal Use Only DO Not Attach Compendium DO Not Attach Compendium, Do Not Delete/merge, 05/21/2019 10:41:25 05/21/1905/21/2019 urina lysis , dipst ick Glucose Negati ve Not Available In-Office Order Internal Use Only DO Not Attach Compendium DO Not Attach Compendium, Do Not Delete/merge, 05/21/2019 10:41:25 06/04/1906/05/2019 CBC WBC 9.7 x10e3 /uL 3.4-10 .8 Not Available [facility] ([facility]) [address] [place], [address], 06/05/2019 09:08:33 06/04/1906/05/2019 CBC RBC 4.08 x10e6 /uL 3.77-5 .28 Not Available [facility] ([facility]) [address] [place], [address], 06/05/2019 09:08:33 06/04/1906/05/2019 CBC hemoglobin 9.9 g/dL 11.1-1 5.9 below low normal Not Available [facility] ([facility]) [address] [place], [address], 06/05/2019 09:08:33 06/04/19 20 06/05/2019 CBC hematocrit 30.4 % 34.0-4 6.6 below low normal Not Available [facility] ([facility]) [address] [place], [address], 06/05/2019 09:08:33 06/04/19 20 06/05/2019 CBC MCV 75 fL 79-97 below low normal Not Available [facility] ([facility]) [address] [place], [address], 06/05/2019 09:08:33 06/04/19 20 06/05/2019 CBC MCH 24.3 pg 26.6-3 3.0 below low normal Not Available [facility] ([facility]) [address] [place], [address], 06/05/2019 09:08:33 06/04/1906/05/2019 CBC MCHC 32.6 g/dL 31.5-3 5.7 Not Available [facility] ([facility]) [address] [place], [address], 06/05/2019 09:08:33 06/04/1906/05/2019 CBC RDW 15.7 % 11.7-1 5.4 above high normal Not Available [facility] ([facility]) [address] [place], [address], 06/05/2019 09:08:33 06/04/1906/05/2019 CBC platelets 259 x10e3 /uL 150-45 0 Not Available [facility] ([facility]) [address] [place], [address], 06/05/2019 09:08:33 06/04/1906/05/2019 CBC 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 Not Available [facility] ([facility]) [address] [place], [address], 06/05/2019 09:08:33 06/04/1906/05/2019 HIV 1+2 AB + HIV 1 p24 Ag, quali tativ e immun oassa y, serum HIV screen 4TH generation wrfx Non Reacti ve non reacti ve Not Available [facility] ([facility]) [address] [place], [address], 06/05/2019 09:08:34 06/04/19 20 06/05/2019 RPR (rapi d plasm a reagi n), serum RPR Non Reacti ve non reacti ve Not Available [facility] ([facility]) [address] [facility], [place], [address], 06/05/2019 09:08:35 06/04/19 20 06/06/2019 bacte rial vagin osis + vagin itis panel , vagin al chlamydia trachomatis, NA Negati ve negati ve Not Available [facility] ([facility]) [address] [place], [address], 06/09/2019 10:36:01 06/04/19 20 06/06/2019 bacte rial vagin osis + vagin itis panel , vagin al neisseria gonorrhoeae, NA Negati ve negati ve Not Available [facility] ([facility]) [address] [place], [address], 06/09/2019 10:36:01 06/04/19 20 2019 bacte rial vagin osis + vagin itis panel , vagin al trich vag by NA Negati ve negati ve Not Available [facility] ([facility]) [address] [place], [address], 06/09/2019 10:36:01 06/04/19 20 06/09/2019 bacte rial vagin osis + vagin itis panel , vagin al atopobium vaginae Low - 0 score Not Available [facility] ([facility]) [address] [place], [address], 06/09/2019 10:36:01 06/04/19 20 06/09/2019 bacte rial vagin osis + vagin itis panel , vagin al bvab 2 Low - 0 score Not Available [facility] ([facility]) [address] [place], [address], 06/09/2019 10:36:01 06/04/19 20 06/09/2019 bacte rial [...] ([facility]) [address] [facility], [place], [address], 06/09/2019 10:36:01 06/04/19 20 06/09/2019 bacte rial vagin osis + vagin itis panel , vagin al lala albicans, NA Negati ve negati ve Not Available [facility] ([facility]) [address] [place], [address], 06/09/2019 10:36:01 06/04/19 20 06/09/2019 bacte rial vagin osis + vagin itis panel , vagin al lala glabrata, NA Negati ve negati ve Not Available [facility] ([facility]) [address] [place], [address], 06/09/2019 10:36:01 06/04/19 20 06/08/2019 HSV (1+2) DNA, qual, PCR, unspe cifie d speci men hsv 1 NA Negati ve negati ve Not Available [facility] ([facility]) [address] [facility], [place], [address], 06/09/2019 10:36:02 06/04/1906/08/2019 HSV (1+2) DNA, qual, PCR, unspe cifie d speci men hsv 2 NA Negati ve negati ve Not Available [facility] ([facility]) [address] [facility], [place], [address], 06/09/2019 10:36:02 06/04/19 20 06/06/2019 cultu re, vagin al/re ctal, strep tococ cus group B strep gp B NA Positi ve negati ve abnormal [facility] Contr [facility] Pre[facility] n[facility] ([facility] and Ameri can Congr ess of Obste [...] ([facility]) [address] [facility], [place], [address], 06/09/2019 10:36:03 06/04/19 20 06/04/2019 urina lysis [...] 06/04/2019 urina lysis , dipst ick Specific [place] 1.030 Not Available In-Off ice Order Internal Use Only DO Not Attach Compendium DO Not Attach Compendium, Do Not Delete/merge, 06/04/2019 10:55:04 06/04/19 20 06/04/2019 urina lysis , dipst ick Ketone Negati ve Not Available In-Office Order Internal Use Only DO Not Attach Compendium DO Not Attach Compendium, Do Not Delete/merge, 06/03/2020 10:55:04 06/04/19 20 06/04/2019 urina lysis , dipst ick Bilirubin Negati ve Not Available In-Office Order Internal Use Only DO Not Attach Compendium DO Not Attach Compendium, Do Not Delete/merge, [id number] 06/04/2019 10:55:04 06/04/19 20 06/04/2019 urina lysis , dipst ick Glucose Negati ve Not Available In-Office Order Internal Use Only DO Not Attach Compendium DO Not Attach Compendium, Do Not Delete/merge, [id number] 06/04/2019 10:55:04 04/06/19 20 04/06/2019 imagi ng/di agnos tic resul t No observ ation record ed. [address] (Imaging) [address] [place], [address], 04/09/2019 13:52:07 05/29/19 20 05/29/2019 imagi ng/di agnos tic resul t No observ ation record ed. [address] (Imaging) [address] [place], [address], 06/04/2019 11:13:57 Result Notes None recorded. 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 Medical Equipment None Reported. [...] Not Avai lable Vitals Date Recorded Body weight Provider Name an d Address Organization Details Last Updated DateTime 04/28/2019 25383.410516 g ANMOL MCINTOSH Attn: Accounting,[address] [place], [address], [facility] 06/09/2019 11:33:21 Date Recorded Body height Body mass index (BMI) Body mass index (BMI) [Percentile] Per age and sex Heart rate Body temperature Oxygen saturation Oxygen saturation in Arterial blood by Pulse oximetry Systolic And Diastolic Provider Name and Address Organization Details Last Updated DateTime 0 160.02 cm 29.8 kg/m2 93 % 103 /min 98.1 [degF] 98 % 98 % 100/72 mm[Hg] Ely Merino MA [facility] 0 11:30:47 Date Recorded Body weight Provider Name an d Address Organization Details Last Updated DateTime 05/07/2019 20416.7674 g ANMOL MCINTOSH Attn: Accounting,[address] [place], [address], [facility] 05/07/2019 14:33:02 Date Recorded Body height Body mass index (BMI) [Percentile] Per age and sex Body mass index (BMI) Heart rate Body temperature Oxygen saturation Oxygen saturation in Arterial blood by Pulse oximetry Systolic And Diastolic Provider Name and Address Organization Details Last Updated DateTime 0 160.02 cm 94 % 30.7 kg/m2 95 /min 98.2 [degF] 97 % 97 % 110/66 mm[Hg] Ely Merino MA [facility] 0 11:09:05 Date Recorded Body weight Heart rate Provider Name and Address Organization Details Last Updated DateTime 05/21/2019 61360.48965 g 116 /min ANMOL MCINTOSH Attn: Accounting,[address] [place], [address], [facility] 05/21/2019 11:07:20 Date Recorded Body height Body mass index (BMI) Body mass index (BMI) [Percentile] Per age and sex Body temperature Oxygen saturation Oxygen saturation in Arterial blood by Pulse oximetry Systolic And Diastolic Provider Name and Address Organization Details Last Updated DateTime 0 160.02 cm 31.9 kg/m2 95 % 97.9 [degF] 98 % 98 % 96/60 mm[Hg] Ely Merino MA [facility] 0 10:51:42 Date Recorded Body weight Provider Name an d Address Organization Details Last Updated DateTime 06/04/2019 74869.346836 g ANMOL MCINTOSH Attn: Accounting,[address] [place], [address], [facility] 06/04/2019 11:22:37 Date Recorded Body height Body mass index (BMI) [Percentile] Per age and sex Body mass index (BMI) Heart rate Body temperature Oxygen saturation Oxygen saturation in Arterial blood by Pulse oximetry Systolic And Diastolic Provider Name and Address Organization Details Last Updated DateTime 0 160.02 cm 96 % 32.8 kg/m2 98 /min 98.2 [degF] 98 % 98 % 118/74 mm[Hg] Ely Merino MA [facility] 0 11:09:06 Date Recorded Body height Body mass index (BMI) Body mass index (BMI) [Percentile] Per age and sex Body weight Provider Name and Address Organization Details Last Updated DateTime 06/11/2019 160.02 cm 33.5 kg/m2 96 % 11877.95 793 g Laurie Tinajero MA [facility] 06/11/2019 12:19:18 Date Recorded Systolic And Diastolic Provider Name and Address Organization Details Last Updated DateTime 06/11/2019 120/76 mm[Hg] Amaury Askew [facility] 020 12:24:20 Social History Question Answer Notes LastModified by Organizat ion Details LastModified Time Tobacco Smoking Status Never Smoker Aundrea Johnson MA null, [facility] 08/13/2017 11:05:50 Do You Have An Advance Directive? No Information not available 08/13/2017 If You Are [...] You Chew? None Information not available 08/13/2017 What Type Of Diet Are You Following? REGULAR Information not available 08/13/2017 Which Illicit Or Recreational Drugs Have You Used? None Information not available 08/13/2017 Education 12 Information no t available 01/01/2019 Have There Been Any Changes To Your [...] To Smoke? No Information not available 06/11/2019 How Much Tobacco Do You Smoke? No [...] ion Details LastModified Time What is your level of alcohol consumption? None Information not available 08/13/2017 Do you or have you ever used smokeless tobacco? Never used smokeless tobacco Information not available 01/01/2019 Are you currently employed? Yes Information not available 01/01/2019 What is your occupation? unemployed Information not available 06/11/2019 Do you or have you ever used e-cigarettes or vape? Never used electronic cigarettes Information not available 01/01/2019 What is your exercise level? Occasional Information not available 01/01/2019 Mental Status None recorded. Family History Relationship Description Onset Age of this Age Resolved Age Notes LastModified by Organization Details LastModified Time Father Asthma lucas Not available 11:05:09 Medical History Condition Response Other N High Blood Pressure N Breast Cancer N Thyroid Problems N Kidney or Bladder Problems N GI Problems N Depression N Blood Clots N Lung Disease N Acne N Breast Problem N Eating Disorder N Anemia N Anesthesia Complications N Headaches/Migraines N Anxiety Disorder N Diabetes N Ovarian Cancer N Muscle, Joint, or Bone Problems N [...] 04/23/2019 completed ANMOL MCINTOSH Attn: Accounting[address] [place], [address], [facility] 04/23/2019 11:09:11 Past Encounters Encounter ID Performer Location Encounter Start Date Encounter Closed Date Diagnosis/Indication Diagnosis SNOMED-CT Code Diagnosis ICD10 Code Diagnosis IMO Codes Diagnosis Note [id number] MD Tammy Soliz (ACCOUNT ASSISTANT) [address] [place] [address] 08/13/2017 10:08:46 08/13/2017 11:24:22 Family planning surveillance 873416403 Z30.09 Counseled patient about different forms of [...] OCP's to prevent STD's. Gynecologi c examination 00426092 Z01.419 Age appropriat e counseling done. Venereal d isease screening 836226185 Z11.3 Patient refused blood work. [id number] ANMOL MCINTOSH (ACCOUNT ASSISTANT) [address] [place] [address] 01/01/2019 11:07:37 01/02/2019 10:51:08 Routine care 970794228 Z34.90 Venereal d isease screening 729785867 Z11.3 screening 2437 67962 Z36.85 Morning sickness 2490696 6 O21.9 Pt given prescripti on for metoclopra mide by a different provider. Continue as needed. [id number] MD Tammy Brown (ACCOUNT ASSISTANT) [address] [place] [address] 0 01/23/2019 15:46:09 01/26/2019 11:40:49 [id number] ANMOL MCINTOSH (ACCOUNT ASSISTANT) [address] [place] [address] 0 01/29/2019 10:48:44 01/30/2019 11:05:17 Routine care 475659660 Z34.90 screening 2437 97706 Z36.1 Heterozygo us methylenetetrahydrofo late reductase mutation [id number] 34795 E72.12 [id number] ANMOL MCINTOSH (ACCOUNT ASSISTANT) [address] [place] [address] 0 02/26/2019 10:25:41 02/26/2019 11:33:58 Routine care 498508980 Z34.90 Heterozygo us methylenetetrahydrofo late reductase mutation 4103440167 89603 E72.12 B12 injections 02/26 [id number] ANMOL MCINTOSH (ACCOUNT ASSISTANT) [address] [place] [address]69[address]167 0 03/26/2019 10:48:57 03/26/2019 11:54:22 Routine care 490295584 Z34.82 screening 2437 36158 Z36.9 Heterozygo us methylenetetrahydrofo late reductase mutation [id number] 38952 E72.12 B12 injections 02/26, 03/26 [id number] ANMOL MCINTOSH (ACCOUNT ASSISTANT) [address] [place] [address]981 0 04/09/2019 10:31:51 04/09/2019 11:22:44 Routine care 645231618 Z34.82 Heterozygo us methylenetetrahydrofo late reductase mutation 9508216200 66063 E72.12 B12 injections 02/26, 2 Anemia of 2734 2003 O99.019 On iron supplement . Candidiasis of vagina 72 445851 B37.3 [id number] ANMOL MCINTOSH (ACCOUNT ASSISTANT) [address] [place] [address] 35963-150 0 04/23/2019 10:04:17 04/27/2019 14:31:13 Routine care 443198387 Z34.82 Heterozygo us methylenetetrahydrofo late reductase mutation 1195330658 51541 E72.12 B12 injections 02/26, 03/26, 3/5 Anemia of 2734 2003 O99.019 On iron supplement . [id number] ANMOL MCINTOSH (ACCOUNT ASSISTANT) [address] [place] [address] 0 04/28/2019 10:42:43 04/30/2019 16:18:57 Candidal vulvovaginitis 63694101 B37.3 Instructed to take medication as prescribed . Swab obtained for culture. Assess symptomati c resolution at [facility] f/u on 05/07/19. [id number] ANMOL MCINTOSH (ACCOUNT ASSISTANT) [address] [place] [address] 07421-677 0 05/07/2019 10:35:34 05/07/2019 11:39:58 Routine care 533217117 Z34.82 Heterozygo us methylenetetrahydrofo late reductase mutation 3721209387 31534 E72.12 B12 injections /, 2/6, 3/5 Anemia of 2734 2003 O99.019 On iron supplement . Recurrent candidiasis of vagina 263518623 B37.3 Completed second round of terconazol e tx 04/28/2019. Mild symptoms remain. Start fluconazol e as prescribed . [id number] ANMOL MCINTOSH (ACCOUNT ASSISTANT) [address] [place] [address]774-352 0 05/21/2019 10:00:31 05/26/2019 09:22:01 Routine care 020751318 Z34.82 Routine care. B12 injection given today. Repeat US to evaluate growth. Heterozygo us methylenetetrahydrofo late reductase mutation 7348054760 51186 E72.12 B12 injections 02/26, /, 3/5, 4/2 Anemia of 2734 2003 O99.019 On iron supplement . [id number] ANMOL MCINTOSH (ACCOUNT ASSISTANT) [address] [place] [address] 90719-018 0 06/04/2019 10:30:17 06/12/2019 09:09:17 Routine care 237046120 Z34.82 Routine care at 36w5d. Denies contractio ns, LOF. Cervix posterior and closed, mild effacement . GBS screening completed. US 05/28 with EFW 65.4%, ALONZO 14.10cm. Discussed delivery with patient and she wants to deliver at [place]. Will start seeing Dr. Askew weekly for cervix checks. screening 8391 10007 Z36.85 Venereal d isease screening 775967194 Z11.3 Heterozygo us methylenetetrahydrofo late reductase mutation 3327505870 61592 E72.12 B12 injections 02/26, 2/6, 3/5, 4/2 Anemia of 2734 2003 O99.019 On iron supplement . Recheck CBC today. 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 Family sveta nning surveillance 296348055 Z30.09 Health Concerns Section Related Observation LastModified by Organization Detai ls LastModified Time None Recorded Concern Status LastModified by Organization Details LastModified Time None Recorded Advance Directives Directive N: Payers Insurance Date Sequence Insurance Name Policy Number Policy Ariza Covered Member ID Ariza Member ID Guarantor Name 01/29/2019 SLIDING FEE SCHEDULE - DISCOUNT Heidi Whitehead 01/01/2019 1 *SELF PAY* As poppy Whitehead 06/08/2019 1 [facility] ([facility] [id number] [facility] [id number] Heidi Whitehead Notes Date Note Type Note Provider Name and Address Organization Details Recorded Time 04/28/2019 text/html Vaginal DischargeReported by PatientHPIFor associated symptoms, patient reportsvaginal itching,vaginal burning,swelling/redne ss, andpain during urinationbut reportsno fever/chills,no diarrhea,no abdominal pain,no pelvic pain,no vaginal pain,no pain during intercourse,no vaginal lump,no genital lesion, andno fever. For quality, patient reportswhite. For duration, patient reports5 days. For context, patient reports,condom use: no, andhistory of recurrent vaginal infections.ROS as noted in the HPI 18 y/o primigravida F, , presents for vaginal discharge and pruritis x5 days. H/o of candidiasis. Patient reports thick, white vaginal discharge associated with pruritis and dysuria. Denies n/v/f, abdominal and pelvic pain or dyspareunia. Also denies contractions, bleeding, leaking of fluids, urinary symptoms, constipation. Pt has no complaints during visit ANMOL MCINTOSH Attn: Accounting[address] [place], [address], [facility] 04/30/2019 13:46:36 05/07/2019 text/html OB ProblemReport ed by PatientHPIFor associated symptoms, patient reportsvaginal/vulvar itching or irritationbut reportsno abdominal pain,no cramping,no contractions,normal movement,no bleeding,no rom,no vaginal discharge,no dysuria,no frequency,no urgency,no hematuria,no fever,no nausea,no emesis,no constipation,no diarrhea/loose stool,no edema,no visual changes,no headache, andno dizziness. For duration, patient reportspersistent.ROS as noted in the HPI 18 y/o primigravida F, , presents for SHARMIN at 32w5d. H/o MTHFR, recurrent yeast infections, and GBS. Patient reports thick vaginal discharge has resolved. Mild pruritis remains. She denies contractions, bleeding, eaking of fluids, urinary symptoms, constipation. ANMOL MCINTOSH Attn: Accounting[address] [place], [address], [facility] 05/07/2019 16:01:54 05/21/2019 text/html OB ProblemReport ed by PatientHPIFor associated symptoms, patient reportsno abdominal pain,no cramping,no contractions,normal movement,no bleeding,no rom,no vaginal discharge,no vaginal/vulvar itching or irritation,no dysuria,no frequency,no urgency,no hematuria,no fever,no nausea,no emesis,no constipation,no diarrhea/loose stool,no edema,no visual changes,no headache, andno dizziness.ROS as noted in the [facility] 18 y/o primigravida F, , presents for SHARMIN at 34w5d. H/o MTHFR, recurrent yeast infections, and GBS. Patient has no specific concerns today. She denies contractions, bleeding, leaking of fluids, urinary symptoms, constipation. ANMOL MCINTOSH Attn: Accounting,[address] [place], [address], [facility] 05/25/2019 14:11:50 06/04/2019 text/html OB ProblemReport ed by PatientHPIFor associated symptoms, patient reportsno abdominal pain,no cramping,no contractions,normal movement,no bleeding,no rom,no vaginal discharge,no vaginal/vulvar itching or irritation,no dysuria,no frequency,no urgency,no hematuria,no fever,no nausea,no emesis,no constipation,no diarrhea/loose stool,no edema,no visual changes,no headache, andno dizziness.ROS as noted in the [facility] 18 y/o primigravida F, , presents for SHARMIN at 36w5d. H/o MTHFR, anemia of , recurrent yeast infections, and GBS. Patient has no specific concerns today. She denies contractions, bleeding, leaking of fluids, urinary symptoms, constipation. ANMOL MCINTOSH Attn: Accounting[address] [place], [address], [facility] 06/04/2019 13:36:28 06/11/2019 text/html OB ProblemReport ed by PatientHPIFor associated symptoms, patient reportsno abdominal pain,no cramping,no contractions,normal movement,no bleeding,no rom,no vaginal discharge,no vaginal/vulvar itching or irritation,no dysuria,no frequency,no urgency,no hematuria,no fever,no nausea,no emesis,no constipation,no diarrhea/loose stool,no edema,no visual changes,no headache, andno dizziness.ROS as noted in the [facility] 18 y/o primigravida F, , presents for SHARMIN at 37w5d. H/o MTHFR, anemia of , recurrent yeast infections, and GBS. Patient has no specific concerns today. She denies contractions, bleeding, leaking of fluids, urinary symptoms, constipation. Amaury Askew [facility], [facility] 06/11/2019 12:36:26 OBGyn Episode Ob Episode Information Episode Created Date Number of Fetuses Patient Bloodtype Patient rh Status Prepregnancy Weight lbs Domestic Partner Domestic Partner Phone Father Name Piccolo Mechanic Status 01/02/20 18 1 B Positive CLOSED Fetus Data First Name Last Name Admitted to NICU Weight (g) Sex Living Outcome Pediatric Complications Fetus ID Race Codes Race Delivery Type [id number] Problems Problem Notes NCB NO EPIDURAL, p ediatrician undecided, Fabio. 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 Keshav Calculation Initial Keshav Date Initial [...] Weight in lbs Pre/Post Dialysis Refused Weight 124.606294197564 BP Diastolic BP Location Tested BP Systolic [...] Weight in lbs Pre/Post Dialysis Refused Weight 133.406826508154 BP Diastolic BP Location Tested BP Systolic [...] Weight in lbs Pre/Post Dialysis Refused Weight 144.500588749265 BP Diastolic BP Location Tested BP Systolic [...] Weight in lbs Pre/Post Dialysis Refused Weight 158.120155251664 BP Diastolic BP Location Tested BP Systolic [...] in lbs Pre/Post Dialysis Refused With clothes 161.948880815148 BP Diastolic BP Location Tested BP Systolic [...] Weight in lbs Pre/Post Dialysis Refused Weight 165.237002037558 BP Diastolic BP Location Tested BP Systolic BP Type 68 98 sitting Fetus Heart Rate Present A 136 Present Fetus Movement A Yes Comments Tdap and B-12 injection toda y. Flowsheet Date 04/28/2019 Madrid Score Blood Edema Fundus Height Fundus Units Glucose Ketones Leukocytes Nitrite Labor Signs Protein Cervic Dilation Cervic Effacement Cervic Station Type Weight in lbs Pre/Post Dialysis Refused Weight 168.074255679228 BP Diastolic BP Location Tested BP Systolic BP Type 72 100 sitting Fetus Heart Rate Present Fetus Movement Comments Flowsheet Date 05/07/2019 Madrid Score Blood Edema Fundus Height Fundus Units Glucose Ketones Leukocytes Nitrite Labor Signs Protein Cervic Dilation Cervic Effacement Cervic Station trace none 32 cm none negative none trace Type Weight in lbs Pre/Post Dialysis Refused Weight 173.285079657013 BP Diastolic BP Location Tested BP Systolic [...] Weight in lbs Pre/Post Dialysis Refused Weight 180.257450348624 BP Diastolic BP Location Tested BP Systolic [...] Weight in lbs Pre/Post Dialysis Refused Weight 185.621921187609 BP Diastolic BP Location Tested BP Systolic BP Type 74 118 sitting Fetus Heart Rate Present A 143 Present Fetus Movement A Yes Comments Routine care at 36w 5d. Denies contractions, LOF. Cervix posterior and closed, mild effacement. GBS screening completed. US 05/28 with EFW 65.4%, ALONZO 14.10cm. Discussed delivery with patient and she wants to deliver at [place]. Will start seeing Dr. Askew weekly until. Flowsheet Date 06/11/2019 Madrid Score Blood Edema Fundus Height Fundus Units Glucose Ketones Leukocytes Nitrite Labor Signs Protein Cervic Dilation Cervic Effacement Cervic Station neg none 36 cm none negative none neg 0cm 0% - 4 Type Weight in lbs Pre/Post Dialysis Refused With clothes 189.753844703784 BP Diastolic BP Location Tested BP Systolic BP Type 76 120 sitting Fetus Heart Rate Present A 144 Present Fetus Movement A Yes Comments wtc/wlb/ see HH next week d el at [place] Menstrual History Last Menstrual Date Menses Monthly On Bcp Conception Prior Menses Frequency Hcg Plus Date Menarche Onset Age 0809/25/2018 true false Genetic Screening And Infection History Question Response Note Patient's Age Will Be 35 Yea rs Or Older At Estimated Date of Delivery false Thalassemia (Zambian, Jordanian, Mediterranean, Or Background): MCV < 80 false Neural Tube Defect (Meningomyelocele, Spina Bifi da, Or Anencephaly) false Congenital Heart Defect false Down Syndrome false Alexey-Sachs (eg, Gnosticism, Cajun, South African-Frontier) f alse Javier Disease false Sickle Cell Disease Or Trait () false Hemophilia Or Other Blood Disorders false Muscular Dystrophy false Cystic Fibrosis false Comerío's Chorea false Mental Retardation/Autism true nicolásdulce g If Yes, Was Person Tested For Fragile [...] Anticipated course o f care discussed at [facility] 01/23/2019 Nutrition counseling ; special diet; dietary precautions (mercury, listeriosis) discussed at [facility] 01/23/2019 Childbirth classes/h ospital facilities discussed at [facility] 01/23/2019 HIV and other routin e tests discussed at [facility] 01/23/2019 Exercise discussed at [facility] 01/23/2019 06/11/2019 Bottl e feed, cb-rma [facility] 01/23/2019 Dental care discussed at [facility] 01/23/2019 Travel discussed at [facility] 01/23/2019 Seat belt use discussed at [facility] a Second Trimester Discussed Date Discussion Item Discussion Note Discuss ed By 01/23/2019 Selecting a care provider PEDS undecided, cb-rma efairallma 01/23/2019 family planning/tubal sterilization 06/11/2019 PPbcp, cb-rma efairallma 01/29/2019 Depression screening (when indicated) 01/29/2019 Abnormal lab values jcortopa [email or web address] 01/29/2019 Signs and symptoms o f labor 01/29/2019 Intimate partner violence alysha [email or web address] 01/29/2019 Tobacco/smoking cess ation counseling (ask, advise, assess, assist, and arrange) [email or web address] Third Tr[facility] Discussed Date Discussion Item Discussion Note Discuss ed By 04/24/2019 Intimate partner violence alysha [email or web address] 01/23/2019 Anesthesia plans NCB NO EPIDURAL, cb-rma efairallma 04/24/2019 education (n ewborn screening, jaundice, SIDS/safe sleeping position, car seat) 01/23/2019 Circumcision 06/11/2019 baby girl, [place], yes to circ if boy, cb-rma efairallma 04/24/2019 Postterm counseling jcortopa [email or web address] 03/27/2019 movement monitoring given kick coun ts msimpsonma 01/23/2019 06/11/2019 Bottle, cb-rma e fairallma 04/24/2019 Labor signs 04/24/2019 depression jcorto [email or web address] 04/24/2019 Family medical leave or disability forms 04/24/2019 Tobacco/smoking cess ation counseling (ask, advise, assess, assist, and arrange) [email or web address] 04/24/2019 Signs and symptoms o f preeclampsia [email or web address] Delivery Information Delivery Date Delivery Type Labor Anesthesia Weeks Gestation Incision Type Labor Labor Length Hrs Delivered By Post Complications Tubal Sterilization Discharge Date Comments afehrenbac her Discharge Information Feeding Method Contraceptive Method Maternal HG B and HCT Levels
== END 2025-01-01 22:32 | disposition left against medical advice (07) ==
PROVIDERS: Emergency Provider Registered Nurse
DX: Z48.01 Encounter for change or removal of surgical wound dressing (principal)
CPT/HCPCS: 99282